=== PATIENT | male | born 1960 | race African-American/Black ===

== ENCOUNTER 2017-07-14 20:38 | Emergency (ER) | payer OTHER ==
[2017-07-14] MEDS ORDERED: Dexamethasone 4 mg/ml Vial ONE (21:41)
[2017-07-14] MEDS ORDERED: Ketorolac Tromethamine 30 MG/ML VIAL ONE (21:41)
[2017-07-14] MEDS ORDERED: HYDROcodone/Acetaminophen 10/325 mg Tablet ONE (22:07)
--- NOTE | 2017-07-14 22:57 | RAD ---
SEMI UPRIGHT PORTABLE CHEST ONE VIEW: History: 56-year-old male with left sided chest pain. Comparison: 01-28-17 FINDINGS: Anterior cervical fusion changes of the lower cervical spine. Heart size is normal. The lungs are cl ear. IMPRESSION: No acute intrathoracic disease. No evidence of pneumonia or other acute process. POS: [facility]
== END 2017-07-14 22:40 | disposition home or self-care (01) ==
LOC: ERS 20:38
DX: R07.89 Other chest pain (principal); I10 Essential (primary) hypertension; E11.9 Type 2 diabetes mellitus without complications; K21.9 Gastro-esophageal reflux disease without esophagitis; Z79.82 Long term (current) use of aspirin; Z79.899 Other long term (current) drug therapy
CPT/HCPCS: 71010; 96372; J1100; J1885

== ENCOUNTER 2017-07-22 21:16 | Emergency (ER) | payer OTHER ==
[2017-07-22 23:32] LABS: #Basophils 0.1 thou/uL (0.0-0.2); #Eosinphils 0.3 thou/uL (0.0-0.7); #Lymphocytes 2.3 thou/uL (1.20-3.40); #Monocytes 0.6 thou/uL (0.11-0.59); #Neutrophils 5.1 thou/uL (1.40-6.50); %Basophils 0.7 % (0.0-1.0); %Eosinophils 3.9 % (0.0-10.0); %Lymphocytes 27.2 % (21.0-51.0); Hematocrit 45.5 % (42.0-52.0); Mean Platelet Volume 9.1 fL (7.4-10.4); Red Blood Cell (RBC) Count 5.63 mill/uL (4.70-6.10); White Blood Cell (WBC) Count 8.3 thou/uL (4.8-10.8)
[2017-07-23] LABS: Troponin I Less than 0.010 ng/mL (< 0.028)
[2017-07-23 00:02] LABS: ALT (SGPT) 18 U/L (8-55); AST (SGOT) 14 U/L (5-34); Alkaline Phosphatase 103 U/L (40-150); Anion Gap 17 mmol/L (10-20); BUN (Urea Nitrogen) 16 mg/dL (8.4-25.7); Bilirubin, Total 0.4 mg/dL (0.2-1.2); CK (CPK) 98 U/L (30-200); Calc. Creatinine Clearance 0 mL/min (70-130); Calcium 9.9 mg/dL (7.8-10.44); Carbon Dioxide 24 mmol/L (22-29); Chloride 105 mmol/L (98-107); Estimated GFR-MDRD Greater than 90; Globulin 3.9 g/dL (2.4-3.5); Protein, Total 8.2 g/dL (6.0-8.3)
[2017-07-23] MEDS ORDERED: Nitroglycerin 0.4 MG TAB (25 Tab Bottle) ONE (00:28)
[2017-07-23] MEDS ORDERED: Ketorolac Tromethamine 30 MG/ML VIAL ONE (00:52)
[2017-07-23 03:32] LABS: Troponin I 0.012 ng/mL (< 0.028)
--- NOTE | 2017-07-23 08:57 | RAD ---
SINGLE VIEW OF THE CHEST: COMPARISON: 07/14/17. HISTORY: Chest pain for 2 weeks in the substernal region. FINDINGS: Single view of the chest shows a normal sized cardiomediastinal silhouette. There is no evidence of consolidation, mass, or pleural effusion. Hardware is seen in the cervical spine. IMPRESSION: No evidence of acute cardiopulmonary disease. POS: [facility]
== END 2017-07-23 04:25 | disposition home or self-care (01) ==
LOC: ERS 21:16
DX: M94.0 Chondrocostal junction syndrome [Tietze] (principal); I10 Essential (primary) hypertension; E11.9 Type 2 diabetes mellitus without complications; K21.9 Gastro-esophageal reflux disease without esophagitis; Z79.82 Long term (current) use of aspirin; Z79.899 Other long term (current) drug therapy
CPT/HCPCS: 36415; 71010; 80053; 82550; 82553; 84484; 85025; 93005; 96372; J1885

== ENCOUNTER 2017-09-01 17:32 | Emergency (ER) | payer OTHER ==
[2017-09-01 19:02] LABS: #Eosinphils 0.2 thou/uL (0.0-0.7); #Lymphocytes 1.8 thou/uL (1.20-3.40); #Monocytes 0.5 thou/uL (0.11-0.59); #Neutrophils 3.6 thou/uL (1.40-6.50); %Basophils 0.3 % (0.0-1.0); %Eosinophils 3.1 % (0.0-10.0); %Lymphocytes 29.6 % (21.0-51.0); %Monocytes 8.3 % (0.0-10.0); Hematocrit 42.3 % (42.0-52.0); Mean Platelet Volume 8.9 fL (7.4-10.4); Red Blood Cell (RBC) Count 5.17 mill/uL (4.70-6.10); White Blood Cell (WBC) Count 6.1 thou/uL (4.8-10.8)
--- NOTE | 2017-09-01 19:08 | RAD ---
PORTABLE CHEST: History: Chest pain. FINDINGS: The lungs are clear. Vascular markings are normal. Heart and mediastinum are unremarkable. IMPRESSION: Unremarkable portable chest. POS: [facility]
[2017-09-01 19:23] LABS: ALT (SGPT) 12 U/L (8-55); AST (SGOT) 10 U/L (5-34); Alkaline Phosphatase 95 U/L (40-150); Anion Gap 12 mmol/L (10-20); BUN (Urea Nitrogen) 13 mg/dL (8.4-25.7); Bilirubin, Total 0.5 mg/dL (0.2-1.2); Calc. Creatinine Clearance 0 mL/min (70-130); Calcium 9.4 mg/dL (7.8-10.44); Carbon Dioxide 26 mmol/L (22-29); Chloride 106 mmol/L (98-107); Estimated GFR-MDRD Greater than 90; Globulin 3.3 g/dL (2.4-3.5); Protein, Total 7.5 g/dL (6.0-8.3)
[2017-09-01 19:31] LABS: Troponin I Less than 0.010 ng/mL (< 0.028)
== END 2017-09-01 20:44 | disposition home or self-care (01) ==
LOC: ERS 17:32
DX: R07.89 Other chest pain (principal); E11.9 Type 2 diabetes mellitus without complications; G43.909 Migraine, unspecified, not intractable, without status migrainosus; I10 Essential (primary) hypertension; K21.9 Gastro-esophageal reflux disease without esophagitis; Z79.82 Long term (current) use of aspirin; Z79.899 Other long term (current) drug therapy; M41.9 Scoliosis, unspecified
CPT/HCPCS: 36415; 71010; 80053; 82553; 84484; 85025; 93005

== ENCOUNTER 2017-09-09 10:41 | Emergency (ER) | payer MEDICARE, MEDICAID ==
[2017-09-09 11:14] LABS: #Eosinphils 0.2 thou/uL (0.0-0.7); #Lymphocytes 1.6 thou/uL (1.20-3.40); #Monocytes 0.5 thou/uL (0.11-0.59); #Neutrophils 3.6 thou/uL (1.40-6.50); %Basophils 0.7 % (0.0-1.0); %Eosinophils 4.1 % (0.0-10.0); %Lymphocytes 27.2 % (21.0-51.0); %Monocytes 7.6 % (0.0-10.0); Hematocrit 41.8 % (42.0-52.0); Mean Platelet Volume 8.6 fL (7.4-10.4); Red Blood Cell (RBC) Count 5.12 mill/uL (4.70-6.10); White Blood Cell (WBC) Count 5.9 thou/uL (4.8-10.8)
[2017-09-09] MEDS ORDERED: Ketorolac Tromethamine 30 MG/ML VIAL ONE (11:29)
[2017-09-09 11:40] LABS: ALT (SGPT) 15 U/L (8-55); AST (SGOT) 12 U/L (5-34); Alkaline Phosphatase 81 U/L (40-150); Anion Gap 13 mmol/L (10-20); BUN (Urea Nitrogen) 22 mg/dL (8.4-25.7); Bilirubin, Total 0.4 mg/dL (0.2-1.2); CK (CPK) 138 U/L (30-200); Calc. Creatinine Clearance 0 mL/min (70-130); Calcium 9.2 mg/dL (7.8-10.44); Carbon Dioxide 21 mmol/L (22-29); Chloride 108 mmol/L (98-107); Estimated GFR-MDRD Greater than 90; Globulin 3.2 g/dL (2.4-3.5); Protein, Total 7.3 g/dL (6.0-8.3)
[2017-09-09 11:43] LABS: Troponin I Less than 0.010 ng/mL (< 0.028)
== END 2017-09-09 12:45 | disposition home or self-care (01) ==
LOC: ERS 10:41
DX: M94.0 Chondrocostal junction syndrome [Tietze] (principal); I10 Essential (primary) hypertension; K21.9 Gastro-esophageal reflux disease without esophagitis; G43.909 Migraine, unspecified, not intractable, without status migrainosus; E11.9 Type 2 diabetes mellitus without complications; Z79.82 Long term (current) use of aspirin; Z79.899 Other long term (current) drug therapy
CPT/HCPCS: 36415; 80053; 82553; 84484; 85025; 93005; 96374; J1885

== ENCOUNTER 2018-03-09 21:15 | Observation (INO) | payer MEDICARE, MEDICAID ==
[2018-03-09] MEDS ORDERED: Acetaminophen 500 MG TAB ONE (22:56)
[2018-03-09 23:17] LABS: #Eosinphils 0.2 thou/uL (0.0-0.7); #Monocytes 0.6 thou/uL (0.11-0.59); #Neutrophils 4.2 thou/uL (1.40-6.50); %Basophils 0.3 % (0.0-1.0); %Eosinophils 3.3 % (0.0-10.0); %Lymphocytes 28.4 % (21.0-51.0); %Monocytes 8.1 % (0.0-10.0); %Neutrophils 59.9 % (42.0-75.0); Hemoglobin 13.9 g/dL (14.0-18.0); Mean Corpuscular Hemoglobin 24.9 pg (27.0-31.0); Mean Corpuscular Volume 80.4 fl (80.0-94.0); Mean Platelet Volume 9.1 fL (7.4-10.4); Platelet Count 187 thou/uL (130-400); RBC Distribution Width 14.3 % (11.5-14.5); Red Blood Cell (RBC) Count 5.59 mill/uL (4.70-6.10); White Blood Cell (WBC) Count 6.9 thou/uL (4.8-10.8)
--- NOTE | 2018-03-09 23:25 | RAD ---
FRONTAL VIEW CHEST: CLINICAL HISTORY: Chest pain. COMPARISON: 09/01/2017 FINDINGS: There is no lobar consolidation, effusion, or pneumothorax. The cardiac silhouette is accentuated by the portable technique. There are extrinsic artifacts limiting visualization. Otherwise, no signif icant interval change. IMPRESSION: No focal consolidation. POS: [facility]
[2018-03-09 23:30] LABS: ALT (SGPT) 19 U/L (8-55); AST (SGOT) 13 U/L (5-34); Albumin 4.4 g/dL (3.5-5.0); Alkaline Phosphatase 89 U/L (40-150); Anion Gap 11 mmol/L (10-20); BUN (Urea Nitrogen) 12 mg/dL (8.4-25.7); Bilirubin, Total 0.5 mg/dL (0.2-1.2); Calc. Creatinine Clearance 0 mL/min (70-130); Calcium 9.4 mg/dL (7.8-10.44); Carbon Dioxide 24 mmol/L (22-29); Chloride 108 mmol/L (98-107); Estimated GFR-MDRD 88; Globulin 3.3 g/dL (2.4-3.5); Glucose 118 mg/dL (70-105); Potassium 4.2 mmol/L (3.5-5.1); Protein, Total 7.7 g/dL (6.0-8.3); Sodium 139 mmol/L (136-145)
[2018-03-09 23:33] LABS: CKMB 1.3 ng/mL (0-6.6); Troponin I Less than 0.010 ng/mL (< 0.028)
[2018-03-10] MEDS ORDERED: Nitroglycerin 0.4 MG TAB (25 Tab Bottle) ONE (01:29)
[2018-03-10 02:28] LABS: Troponin I Less than 0.010 ng/mL (< 0.028)
[2018-03-10] MEDS ORDERED: Ketorolac Tromethamine 30 MG/ML VIAL ONE (02:47)
[2018-03-10] MEDS ORDERED: Ondansetron HCl/PF 4 MG/2 ML Vial IVP PRN (04:14)
[2018-03-10] MEDS ORDERED: Ondansetron ODT 4 MG TAB SL PRN (04:14)
[2018-03-10] MEDS ORDERED: Acetaminophen 325 MG TAB PO PRN (04:14)
[2018-03-10] MEDS: Sodium Chloride 0.9% 1,000 ML IV SCH ×2 (04:38→13:00)
[2018-03-10 04:48] VITALS: BMI 26.0
[2018-03-10] MEDS: Docusate 100 MG CAP PO SCH (08:00)
[2018-03-10] MEDS ORDERED: Nitroglycerin 0.4 MG TAB (25 Tab Bottle) PO PRN (08:47)
[2018-03-10] MEDS ORDERED: Ibuprofen 800 MG TAB PO SCH (09:00)
[2018-03-10] MEDS ORDERED: Non-Formulary Item 1 EACH (Pregabalin [Lyrica] 300 MG) PO SCH (09:00)
[2018-03-10] MEDS ORDERED: Docusate 100 MG CAP PO SCH (09:00)
[2018-03-10] MEDS ORDERED: Aspirin 325 MG TAB PO SCH (09:00)
[2018-03-10] MEDS: Heparin 5,000 UNITS/ML VIAL SC SCH ×3 (09:05→21:56)
[2018-03-10] MEDS: Pregabalin 75 MG CAP PO SCH ×2 (09:05→21:55)
[2018-03-10] MEDS ORDERED: Regadenoson 0.4 MG/5 ML SYRINGE ONE (10:48)
[2018-03-10] MEDS ORDERED: ALPRAZolam 0.25 MG TAB PO SCH (11:15)
--- NOTE | 2018-03-10 12:12 | HP ---
PRIMARY CARE PHYSICIAN: Dr. Ricardo PRESENTING COMPLAINT: Chest pain. HISTORY OF PRESENT ILLNESS: Mr. Yousif Nunn is a 57-year-old male with a past medical history of cerebral palsy, scoliosis, sciatica, hypertension and hyperlipidemia who presented to the emergency room with complaints of chest pain. He reports that the chest pain is right-sided, radiating to the left side of his chest, 8/10 and sharp, aggravated by moving his arms and then relieved by lying still. The pain lasted about 15-20 minutes and was associated with one episode of diaphoresis. There is no shortness of breath, palpitations, PND, orthopnea, lower extremity edema. He has no abdominal or urinary symptoms. He reported he has this intermittent chest pain for a few years now and had been evaluated in the past with no etiology found. Last stress test was about 2 years ago. He has never had a cardiac catheterization. PAST MEDICAL HISTORY: As stated in the HPI. PAST SURGICAL HISTORY: Has a history of multiple back and leg surgeries. FAMILY HISTORY: Reviewed and noncontributory. SOCIAL HISTORY: He does not smoke cigarettes, drink alcohol or use illicit drugs. ALLERGIES: No known drug allergies. CODE STATUS: FULL. REVIEW OF SYSTEMS: Full. REVIEW OF SYSTEMS: All systems reviewed and negative, except as stated in HPI. HOME MEDICATIONS: Aspirin 81 mg daily, docusate 100 mg daily, lisinopril 10 mg q.a.m., metoprolol succinate 50 mg q.a.m., pregabalin 300 mg b.i.d. PHYSICAL EXAMINATION: VITAL SIGNS: Temperature 96.4 degrees Fahrenheit, pulse rate 78, BP 128/79, respiratory rate 20, oxygen saturation 99% on room air. GENERAL: Not in acute distress. He is lying comfortably in bed, currently chest pain free. HEENT: Normocephalic, atraumatic. Not pale, anicteric. Moist oral mucosa. PERRLA, EOMI. RESPIRATORY: Vesicular breath sounds bilaterally. No wheezes, rales or rhonchi. Positive reproducible chest pain on palpation. CARDIOVASCULAR: S1, S2 only. No murmurs, rubs or gallops. Regular rate and rhythm. ABDOMEN: Soft, nontender, nondistended. Bowel sounds normoactive. MUSCULOSKELETAL: No edema. NEUROLOGIC: Alert and well oriented to time, place and person. No focal deficits. PSYCHIATRIC: Normal mood and affect. SKIN: Warm, dry, well perfused. No rashes or lesions. LABORATORY DATA: CBC was largely unremarkable as well as CMP. Troponin was trended and was negative. Chest x-ray showed no signs of acute pathology. EKG showed no signs of acute ischemia. ASSESSMENT AND PLAN: 1. Chest pain: This is likely musculoskeletal chest pain. He has reproducible chest pain and his cardiac enzymes have been negative. He also has no EKG changes. He has been admitted to rule out ACS. We will obtain cardiac stress test, placed on nitroglycerin p.r.n. for chest pain. We will also give a trial of NSAIDs because he might be experiencing costochondritis. 2. Hypertension: Blood pressure is relatively well controlled. We will resume his home medications. 3. Hyperlipidemia. 4. History of cerebral palsy. 5. Deep venous thrombosis prophylaxis with subcutaneous heparin. CODE STATUS: FULL CODE. [facility]
[2018-03-10] MEDS: Lisinopril 10 MG TAB PO SCH (17:12)
--- NOTE | 2018-03-10 18:59 | NM ---
NUCLEAR MEDICINE CARDIAC PERFUSION EXAMINATION WITH EJECTION FRACTION: 03/10/18 COMPARISON: 09/22/15. HISTORY: 57-year-old male with chest pain and hypertension. TECHNIQUE: A single day nuclear medicine cardiac perfusion examination was performed. Rest images were obtained using 9 millicuries of technetium 99m Sestamibi. Stress images were obtained using 27.1 millicuries o f technetium 99m Sestamibi and Lexiscan. FINDINGS: Tomographic images show no fixed or reversible perfusion defects. Gated images show normal wall motio n with an ejection fraction of 67%. EDV - 65 mL. LHR - 0.5. TID - 0.9. IMPRESSION: No evidence of ischemia. POS: [facility]
[2018-03-11 05:41] LABS: #Eosinphils 0.2 thou/uL (0.0-0.7); #Lymphocytes 1.2 thou/uL (1.20-3.40); #Monocytes 0.4 thou/uL (0.11-0.59); #Neutrophils 3.6 thou/uL (1.40-6.50); %Eosinophils 3.6 % (0.0-10.0); %Lymphocytes 22.8 % (21.0-51.0); %Monocytes 8.1 % (0.0-10.0); %Neutrophils 65.5 % (42.0-75.0); Hemoglobin 12.5 g/dL (14.0-18.0); Mean Corpuscular HGB CONC 31.8 g/dL (32.0-36.0); Mean Corpuscular Hemoglobin 25.9 pg (27.0-31.0); Mean Corpuscular Volume 81.4 fl (80.0-94.0); Mean Platelet Volume 9.6 fL (7.4-10.4); Platelet Count 179 thou/uL (130-400); RBC Distribution Width 14.4 % (11.5-14.5); Red Blood Cell (RBC) Count 4.81 mill/uL (4.70-6.10); White Blood Cell (WBC) Count 5.4 thou/uL (4.8-10.8)
[2018-03-11 05:51] VITALS: TEMP 97.5
[2018-03-11 05:55] LABS: Anion Gap 9 mmol/L (10-20); BUN (Urea Nitrogen) 11 mg/dL (8.4-25.7); Calc. Creatinine Clearance 95 mL/min (70-130); Calcium 8.9 mg/dL (7.8-10.44); Carbon Dioxide 22 mmol/L (22-29); Cardiac Risk 4.6 (Less than 4.5); Chloride 112 mmol/L (98-107); Cholesterol 124 mg/dl (< 200 Desired); Estimated GFR-MDRD Greater than 90; Glucose 152 mg/dL (70-105); HDL Cholesterol 27 mg/dL (>60 Neg Risk); LDL Cholesterol, Calculated 65 mg/dL; Potassium 3.9 mmol/L (3.5-5.1); Sodium 139 mmol/L (136-145); Triglycerides 162 mg/dL (Less than 150)
[2018-03-11 08:33] VITALS: BP 138/65
[2018-03-11] MEDS: Pregabalin 75 MG CAP PO SCH (09:02)
[2018-03-11] MEDS: Docusate 100 MG CAP PO SCH (09:02)
[2018-03-11] MEDS: Lisinopril 10 MG TAB PO SCH (09:02)
[2018-03-11] MEDS: Heparin 5,000 UNITS/ML VIAL SC SCH (09:05)
--- NOTE | 2018-03-11 12:29 | DIS ---
DATE OF ADMISSION: 03/10/2018 DATE OF DISCHARGE: 03/11/2018 DISCHARGE DIAGNOSES: Noncardiac chest pain. HISTORY OF PRESENT ILLNESS/HOSPITAL COURSE: Mr. Yousif Nunn is a 57-year-old man with a past medical history of cerebral palsy, scoliosis, sciatica, hypertension, hyperlipidemia who is whee lchair dependent, who presented to the emergency room with complaints of chest pain, which was right- sided, radiating to the left side of the chest 6-8/10, sharp, aggravated by movement and relieved by lying still. The pain lasts about 15-20 minutes, was associated with 1 episode of diaphoresis. Ther e is no shortness of breath, palpitations, PND, orthopnea, or lower extremity edema. He has no abdom inal or urinary symptoms. He reports he has had this intermittent chest pain for a few years now and has been evaluated thoroughly in the past with no etiology found. He reports he had a stress test d one about 2 years ago which was normal. He has never had a cardiac catheterization. His labs are la rgely unremarkable, as well as imaging. He underwent a cardiac stress test while in the hospital whi ch was normal and showed no signs of ischemia. He was then discharged home with plans to follow up w ith his primary care physician. DISCHARGE MEDICATIONS: Metoprolol succinate 25 mg daily, docusate 1 tab daily, pregabalin 300 mg twi ce daily, lisinopril 10 mg daily, aspirin 81 mg daily. PHYSICAL EXAMINATION: He was examined on the day of discharge. VITAL SIGNS: Temperature 97.5 degree Fahrenheit, pulse rate 62, blood pressure 138/75, respiratory r ate 16, oxygen saturation 96% on room air. GENERAL: Not in acute distress. He is lying comfortably in bed and chest pain free. HEENT: Normocephalic, atraumatic. PERRLA, EOMI. Moist mucous membrane. RESPIRATORY: Vesicular breath sounds bilaterally. No wheezes, rales or rhonchi. CARDIOVASCULAR: S1, S2, only with regular rate and rhythm. No murmurs, rubs or gallops. ABDOMEN: Soft, nontender, nondistended. Bowel sounds normoactive. EXTREMITIES: No edema. PSYCHIATRIC: Normal mood and affect. NEUROLOGIC: Alert and well oriented. No focal deficits. SKIN: Warm, dry, well-perfused. No rashes or lesions. NECK: Supple, full range of movement. LABORATORY DATA: WBC 5.4, hemoglobin 12.5, platelet count 179. Sodium 139, potassium 3.9, chloride 112, carbon dioxide 22, BUN 11, creatinine 0.82, glucose 152, calcium 8.8. IMAGING: Chest x-ray, no acute pulmonary abnormality. PROCEDURES: Nuclear stress test. Normal cardiac. No signs of acute ischemia or reversible defects. CONSULTATIONS: None. CONDITION AT TIME OF DISCHARGE: Stable and improved. DISCHARGE DIET: Heart healthy. CARE GOAL: Follow up with his primary care physician within 10 days of discharge. Patient instructe d to return to the emergency room if he has recurrence of his chest pain, shortness of breath, diapho resis or loss of consciousness. ACTIVITY: Resume as tolerated. Discharge time 65 minutes including chart review and documentation.
== END 2018-03-11 13:57 | disposition home or self-care (01) ==
LOC: ERS 21:15 → 2NO 03-10 03:11
PROVIDERS: ADMIT Internal Medicine; ATTEND Internal Medicine
DX: R07.89 Other chest pain (principal); I10 Essential (primary) hypertension; E78.5 Hyperlipidemia, unspecified; Z79.82 Long term (current) use of aspirin; Z79.899 Other long term (current) drug therapy; Z86.69 Personal history of other diseases of the nervous system and sense organs
CPT/HCPCS: 71045; 78452; 80048; 80053; 80061; 82553; 83880; 84484 ×2; 85025 ×2; 93005; 93017; 94760; 96361; 96374; 99285; A9500; G0378; 36415; J1644; J1885; J2785

== ENCOUNTER 2018-03-19 20:49 | Emergency (ER) | payer MEDICARE, MEDICAID ==
[2018-03-19 21:15] LABS: #Eosinphils 0.3 thou/uL (0.0-0.7); #Lymphocytes 1.9 thou/uL (1.20-3.40); #Monocytes 0.5 thou/uL (0.11-0.59); #Neutrophils 3.9 thou/uL (1.40-6.50); %Basophils 0.6 % (0.0-1.0); %Eosinophils 5.2 % (0.0-10.0); %Lymphocytes 28.7 % (21.0-51.0); %Monocytes 7.8 % (0.0-10.0); %Neutrophils 57.8 % (42.0-75.0); Hemoglobin 14.2 g/dL (14.0-18.0); Mean Corpuscular HGB CONC 31.7 g/dL (32.0-36.0); Mean Corpuscular Hemoglobin 25.9 pg (27.0-31.0); Mean Corpuscular Volume 81.8 fl (80.0-94.0); Mean Platelet Volume 10.1 fL (7.4-10.4); Platelet Count 199 thou/uL (130-400); RBC Distribution Width 14.8 % (11.5-14.5); Red Blood Cell (RBC) Count 5.47 mill/uL (4.70-6.10); White Blood Cell (WBC) Count 6.7 thou/uL (4.8-10.8)
--- NOTE | 2018-03-19 21:32 | RAD ---
CHEST ONE VIEW: 03/19/18 HISTORY: Chest pain. COMPARISON: 03/09/18. FINDINGS: Stable cardiac silhouette. Lungs and pleural spaces are clear. No pneumothorax or osseous abnormality . Cervical fusion hardware is noted. IMPRESSION: No acute cardiopulmonary process. POS: [facility]
[2018-03-19 21:39] LABS: CKMB 1.5 ng/mL (0-6.6); Troponin I Less than 0.010 ng/mL (< 0.028)
[2018-03-19] MEDS ORDERED: Ketorolac Tromethamine 30 MG/ML VIAL ONE (21:42)
[2018-03-19 22:18] LABS: Albumin 4.1 g/dL (3.5-5.0)
[2018-03-19 22:20] LABS: Chloride 106 mmol/L (98-107); Potassium 3.8 mmol/L (3.5-5.1); Sodium 140 mmol/L (136-145)
[2018-03-19 22:21] LABS: Calcium 9.3 mg/dL (7.8-10.44); Globulin 3.6 g/dL (2.4-3.5); Glucose 148 mg/dL (70-105); Protein, Total 7.7 g/dL (6.0-8.3)
[2018-03-19 22:22] LABS: Anion Gap 16 mmol/L (10-20); Carbon Dioxide 22 mmol/L (22-29)
[2018-03-19 22:23] LABS: Bilirubin, Total 0.3 mg/dL (0.2-1.2)
[2018-03-19 22:24] LABS: Alkaline Phosphatase 95 U/L (40-150)
[2018-03-19 22:25] LABS: BUN (Urea Nitrogen) 11 mg/dL (8.4-25.7); Calc. Creatinine Clearance 0 mL/min (70-130); Estimated GFR-MDRD Greater than 90
[2018-03-19 22:26] LABS: AST (SGOT) 15 U/L (5-34)
[2018-03-19 22:27] LABS: ALT (SGPT) 27 U/L (8-55); CK (CPK) 125 U/L (30-200)
== END 2018-03-19 23:46 | disposition home or self-care (01) ==
LOC: ERS 20:49
DX: R07.9 Chest pain, unspecified (principal); G43.909 Migraine, unspecified, not intractable, without status migrainosus; I10 Essential (primary) hypertension; E11.9 Type 2 diabetes mellitus without complications; Z79.899 Other long term (current) drug therapy; Z79.82 Long term (current) use of aspirin; Z79.84 Long term (current) use of oral hypoglycemic drugs
CPT/HCPCS: 36415; 71045; 80053; 82550; 82553; 84484; 85025; 93005; 94760; 96374; J1885

== ENCOUNTER 2018-03-23 21:35 | Emergency (ER) | payer MEDICARE, MEDICAID ==
[2018-03-23] MEDS ORDERED: Ketorolac Tromethamine 30 MG/ML VIAL ONE (23:05)
[2018-03-23] MEDS ORDERED: Cyclobenzaprine 10 MG TAB ONE (23:05)
--- NOTE | 2018-03-23 23:32 | RAD ---
LUMBAR SPINE THREE VIEWS: INDICATIONS: Low back pain. COMPARISON: Lumbar films from 08/29/2016. FINDINGS: Postop changes are again noted. Pedicle screws transfix L4 and L5. There is a cage type implant at the L5-S1 disk. There is an interbody implant at L3-L4 and at L4-L5. These implants are unchanged i n position from the prior exam. There is a slight retrolisthesis at L3-L4, which is also similar to the prior exam. Posterior bony fusion changes. Anterior osteophytes are prominent at L3-L4. Postoperative and degenerative changes of the lumbar spine again noted, not significantly changed fro m the prior exam of 08/29/2016. POS: [facility]
== END 2018-03-24 01:50 | disposition home or self-care (01) ==
LOC: ERS 21:35
DX: S39.012A Strain of muscle, fascia and tendon of lower back, initial encounter (principal); I10 Essential (primary) hypertension; G43.909 Migraine, unspecified, not intractable, without status migrainosus; E11.9 Type 2 diabetes mellitus without complications; Z79.899 Other long term (current) drug therapy; Z79.82 Long term (current) use of aspirin; Z79.84 Long term (current) use of oral hypoglycemic drugs; Y93.E1 Activity, personal bathing and showering
CPT/HCPCS: 72100; 96372; J1885

== ENCOUNTER 2018-04-07 17:09 | Emergency (ER) | payer MEDICARE, MEDICAID ==
[2018-04-07 17:49] LABS: #Basophils 0.1 thou/uL (0.0-0.2); #Eosinphils 0.2 thou/uL (0.0-0.7); #Lymphocytes 1.9 thou/uL (1.20-3.40); #Monocytes 0.5 thou/uL (0.11-0.59); #Neutrophils 4.1 thou/uL (1.40-6.50); %Basophils 0.7 % (0.0-1.0); %Eosinophils 3.2 % (0.0-10.0); %Lymphocytes 27.8 % (21.0-51.0); %Monocytes 7.4 % (0.0-10.0); %Neutrophils 60.9 % (42.0-75.0); Hemoglobin 13.6 g/dL (14.0-18.0); Mean Corpuscular Hemoglobin 26.5 pg (27.0-31.0); Mean Corpuscular Volume 80.3 fL (78.0-98.0); Platelet Count 189 thou/uL (130-400); RBC Distribution Width 13.9 % (11.5-14.5); Red Blood Cell (RBC) Count 5.13 mill/uL (4.70-6.10); White Blood Cell (WBC) Count 6.7 thou/uL (4.8-10.8)
[2018-04-07 18:14] LABS: CKMB 1.8 ng/mL (0-6.6); Troponin I Less than 0.010 ng/mL (< 0.028)
--- NOTE | 2018-04-07 18:20 | RAD ---
RADIOGRAPH CHEST 1 VIEW: 04/07/18 HISTORY: 57-year-old male with chest pain. FINDINGS: There are no air space densities, pulmonary edema, pneumothorax, or cardiomegaly. The lateral costop hrenic angles are sharp. IMPRESSION: No acute cardiopulmonary findings. lino [] POS: [facility]
[2018-04-07 18:28] LABS: ALT (SGPT) 15 U/L (8-55); AST (SGOT) 12 U/L (5-34); Albumin 4.3 g/dL (3.5-5.0); Alkaline Phosphatase 94 U/L (40-150); Anion Gap 13 mmol/L (10-20); BUN (Urea Nitrogen) 13 mg/dL (8.4-25.7); Bilirubin, Total 0.3 mg/dL (0.2-1.2); CK (CPK) 124 U/L (30-200); Calc. Creatinine Clearance 0 mL/min (70-130); Calcium 9.4 mg/dL (7.8-10.44); Carbon Dioxide 21 mmol/L (22-29); Chloride 110 mmol/L (98-107); Estimated GFR-MDRD Greater than 90; Globulin 3.4 g/dL (2.4-3.5); Glucose 96 mg/dL (70-105); Lipase 27 U/L (8-78); Potassium 3.8 mmol/L (3.5-5.1); Protein, Total 7.7 g/dL (6.0-8.3); Sodium 140 mmol/L (136-145)
--- NOTE | 2018-04-11 12:58 | EKG ---
Test Reason : Blood Pressure : / mmHG Vent. Rate : 077 BPM Atrial Rate : 077 BPM P-R Int : 172 ms QRS Dur : 068 ms QT Int : 354 ms P-R-T Axes : 043 026 022 degrees QTc Int : 400 ms Normal sinus rhythm Nonspecific T wave abnormality Abnormal ECG Confirmed by JACE MEREDITH, JIM ([id number]), health editor GAGAN BASILIO ([id number]) on 04/11/2018 12:57:41 PM Referred By: Confirmed By:JIM MCCORMICK MD
== END 2018-04-07 19:12 | disposition home or self-care (01) ==
LOC: ERS 17:09
DX: M25.511 Pain in right shoulder (principal); E11.9 Type 2 diabetes mellitus without complications; G80.9 Cerebral palsy, unspecified; I10 Essential (primary) hypertension; M41.9 Scoliosis, unspecified; G43.909 Migraine, unspecified, not intractable, without status migrainosus; Z79.82 Long term (current) use of aspirin; Z79.899 Other long term (current) drug therapy; Z79.84 Long term (current) use of oral hypoglycemic drugs
CPT/HCPCS: 36415; 71045; 80053; 82550; 82553; 83690; 84484; 85025; 93005

== ENCOUNTER 2018-08-09 11:37 | Emergency (ER) | payer MEDICARE, OTHER ==
[2018-08-09] MEDS ORDERED: Ketorolac Tromethamine 60 MG/2 ML VIAL ONE (11:58)
[2018-08-09 12:10] LABS: Bilirubin Negative (Negative); Blood, Urine Negative (Negative); Clarity CLEAR (Clear); Glucose, Urine (Dipstick) >=1000 mg/dL (Negative); Leukocyte Negative (Negative); Nitrite Negative (Negative); Protein, Urine (Dipstick) Negative (Neg-Trace); Specific Gravity, Urine 1.023 (1.002-1.036); Urobilinogen 0.2 mg/dL (0.2-1.0); pH, Urine 5.5 (5.0-9.0)
--- NOTE | 2018-08-09 12:13 | RAD ---
LUMBAR SPINE 3 VIEWS: Date: 08/09/18 PROVIDED CLINICAL HISTORY: Low back pain. FINDINGS: Comparison with 03/23/18. Five non-rib bearing lumbar-type vertebral bodies are redemonstrated. Postoperative changes involving the lower lumbar spine are redemonstrated. There is displacement of the intervertebral disc device d orsal markers involving the L3-4 disc device posteriorly, projecting over the spinal canal at this le rahel. Vertebral body heights appear preserved. There is prominent disc space narrowing at L3-4 with en d plate degenerative change. Visualized pedicles appear intact. IMPRESSION: Extensive postoperative change involving the lower lumbar spine with interval displacement of interve rtebral disc device posteriorly into the spinal canal at L3-4. POS: [facility]
--- NOTE | 2018-08-09 15:46 | CT ---
CT LUMBAR SPINE: Date: 08/09/18 Multiple axial tomograms obtained through the lumbar spine with multiplanar reconstruction. INDICATION: Back pain. Evaluate for displacement of IVD device. Comparison made to 12/08/[address] scans. FINDINGS: Postoperative changes are again noted. There are pedicle screws at L4 and L5. An interbody implant at L5-S1, similar to the prior study. Mild retrolisthesis of L3 on L4 is also similar to the prior exam . Posterior fusion changes and posterior laminectomy changes at L3-4, L4-5, and L5-S1. At L1-2, mild disc bulge without significant central canal stenosis. At L2-3, diffuse disc bulge. Calcification along the posterior disc margin. Facet and ligamentous hyp ertrophy. Mild central canal stenosis. At L3-4, posterolisthesis measured at approximately 4-5 mm. Severe posterior hypertrophic change. The re is an interbody disc implant in place which is to the left of midline, similar to the prior study. Posterior osteophytes at L3-4 level with disc bulge. These changes compress the thecal sac resulting in severe central canal stenosis. Pedicle screws at L4. At L4-5, partial fusion with interbody implant. There is curvilinear opacification within the thecal sac laterally on the left. This has the appearan ce of some residual contrast within the thecal sac. This could potentially represent dystrophic calci fication. It was not present on prior CT of 12/15/14. Posterior laminectomy changes. No significant c entral canal stenosis. At L5-S1, interbody implant and partial fusion. Facet hypertrophy. Mild central canal stenosis. Pedic le screws are seen at L5. IMPRESSION: Postoperative and degenerative changes of the lumbar spine again noted. Findings are similar to the p rior study of 12/08/13 and 12/15/14. POS: [facility]
== END 2018-08-09 16:45 | disposition home or self-care (01) ==
LOC: ERS 11:37
DX: M54.5 Low back pain (principal); R10.9 Unspecified abdominal pain; E11.9 Type 2 diabetes mellitus without complications; I10 Essential (primary) hypertension; G43.909 Migraine, unspecified, not intractable, without status migrainosus
CPT/HCPCS: 72100; 72131; 81003; 87086; 96372; J1885

== ENCOUNTER 2019-05-30 05:20 | Inpatient (IN) | payer MEDICARE, MEDICAID ==
[2019-05-30 06:04] LABS: #Eosinphils 0.2 thou/uL (0.0-0.7); #Lymphocytes 1.3 thou/uL (1.20-3.40); #Monocytes 0.6 thou/uL (0.11-0.59); %Basophils 0.3 % (0.0-1.0); %Eosinophils 2.3 % (0.0-10.0); %Lymphocytes 12.7 % (21.0-51.0); %Monocytes 6.1 % (0.0-10.0); %Neutrophils 78.5 % (42.0-75.0); Hemoglobin 14.3 g/dL (14.0-18.0); Mean Corpuscular HGB CONC 30.9 g/dL (32.0-36.0); Mean Corpuscular Hemoglobin 24.7 pg (27.0-31.0); Mean Corpuscular Volume 79.9 fL (78.0-98.0); Mean Platelet Volume 9.7 fL (7.4-10.4); Platelet Count 203 thou/uL (130-400); RBC Distribution Width 14.4 % (11.5-14.5); Red Blood Cell (RBC) Count 5.81 mill/uL (4.70-6.10); White Blood Cell (WBC) Count 10.2 thou/uL (4.8-10.8)
[2019-05-30] MEDS ORDERED: Nitroglycerin 0.4 MG TAB 1 EACH ONE (06:08)
[2019-05-30 06:24] LABS: ALT (SGPT) 8 U/L (8-55); AST (SGOT) 11 U/L (5-34); Albumin 4.3 g/dL (3.5-5.0); Alkaline Phosphatase 86 U/L (40-150); Anion Gap 15 mmol/L (10-20); BUN (Urea Nitrogen) 16 mg/dL (8.4-25.7); Bilirubin, Total 0.3 mg/dL (0.2-1.2); CK (CPK) 75 U/L (30-200); Calc. Creatinine Clearance 0 mL/min (70-130); Carbon Dioxide 21 mmol/L (22-29); Chloride 108 mmol/L (98-107); Estimated GFR-MDRD Greater than 90; Globulin 3.2 g/dL (2.4-3.5); Glucose 129 mg/dL (70-105); Lipase 21 U/L (8-78); Potassium 4.3 mmol/L (3.5-5.1); Protein, Total 7.5 g/dL (6.0-8.3); Sodium 140 mmol/L (136-145)
[2019-05-30] MEDS ORDERED: Enoxaparin Sodium 80 MG/0.8 ML SYRINGE ONE (06:39)
--- NOTE | 2019-05-30 06:50 | CT ---
CTA THORAX WITH IV CONTRAST AND PE PROTOCOL AND 3D REFORMATTED IMAGING: INDICATIONS: History of sudden onset chest pain and dyspnea. FINDINGS: There is a nonocclusive filling defect seen within the distal left lower lobar pulmonary artery, exte nding into the superior segmental pulmonary artery of the left lower lobe. No additional focal filli ng defect is evident. There is no overt evidence to suggest the presence of right heart strain. No confluent air space opacity or pleural effusion is noted. A few ground glass tree-in-bud nodular opa cities are present within the right middle lobe. No enlarged lymph nodes are evident. The visualize d upper abdomen reveals no acute abnormality. There is scattered degenerative change. IMPRESSION: Nonocclusive distal left lower lobar pulmonary embolus with extension into the superior segmental pul monary artery of the left lower lobe. Findings called to Dr. Cardoso at 6:13 a.m. on 05/30/2019. CODE CR POS: [facility]
--- NOTE | 2019-05-30 08:55 | RAD ---
PORTABLE CHEST ONE VIEW: 05/30/2019 6:08 a.m. HISTORY: Chest pain. COMPARISON: 04/07/2018 FINDINGS: The heart size is normal. The lungs are well expanded without focal areas of consolidation, pneumoth oraces, or pleural effusions. There are postop changes in the cervical spine. IMPRESSION: No acute process. POS: [facility]
[2019-05-30 09:09] VITALS: BMI 25.9
[2019-05-30 09:40] LABS: Troponin I Less than 0.010 ng/mL (< 0.028)
[2019-05-30] MEDS ORDERED: ISOVUE-370 76%-LOCM 1 ML ONE (10:22)
[2019-05-30] MEDS ORDERED: Cyclobenzaprine 10 MG TAB PO PRN (11:32)
[2019-05-30] MEDS ORDERED: Fluticasone Propionate Nasal Spray 16 gm Bottle NASAL PRN (11:32)
[2019-05-30] MEDS ORDERED: Loratadine 10 MG TAB PO PRN (11:32)
[2019-05-30] MEDS ORDERED: Ondansetron ODT 4 MG TAB PO PRN (11:34)
[2019-05-30] MEDS ORDERED: Senokot S 8.6-50 MG TAB PO PRN (11:34)
[2019-05-30] MEDS ORDERED: Ondansetron PF 4 MG/2 ML Vial IVP PRN (11:34)
[2019-05-30] MEDS ORDERED: Bisacodyl 5 MG TAB PO PRN (11:34)
[2019-05-30] MEDS ORDERED: Dextrose 50% Abboject 50 ML SYRINGE SLOW IVP PRN (11:37)
[2019-05-30] MEDS ORDERED: HumaLOG 300 UNITS/3 ML VIAL SC PRN (11:37)
[2019-05-30] MEDS ORDERED: Dextrose 5% in Water 1,000 ML IV PRN (11:37)
[2019-05-30] MEDS ORDERED: Multivit, Therapeutic 1 TAB PO SCH (12:00)
[2019-05-30] MEDS ORDERED: Pregabalin 75 MG CAP PO SCH (12:00)
[2019-05-30] MEDS ORDERED: Famotidine 20 MG TAB PO SCH (12:00)
[2019-05-30] MEDS ORDERED: Lidocaine 5% Patch TD SCH (12:00)
[2019-05-30] MEDS ORDERED: Lisinopril 20 MG TAB PO SCH (12:00)
[2019-05-30 12:18] LABS: Troponin I Less than 0.010 ng/mL (< 0.028)
[2019-05-30] MEDS: HYDROcodone/Acetaminophen 5/325 mg Tablet PO PRN (12:28)
--- NOTE | 2019-05-30 18:35 | HP ---
CHIEF COMPLAINT: Shortness of breath. HISTORY OF PRESENT ILLNESS: Mr. Nunn is a very pleasant 58-year-old gentleman with past medical history of cerebral palsy; chronic back pain; numerous spinal surgeries; chronic muscle spasms; debility, who is in bed more than normal; neuropathic pain; GERD; hypertension; diabetes mellitus; and hyperlipidemia. The patient presenting with worsening shortness of breath that has been progressive over the past 3 weeks. The patient with cerebral palsy. He is more bed-bound with limited functional status. The patient states that he is able to get up and move around with help of physical therapy. Over the past 3 weeks, the patient has been having worsening shortness of breath, he has been very tired, he has been to the emergency department twice at [facility], and he was sent home both times stating that they could not find anything wrong. With the patient's symptoms of chest pain and shortness of breath, a CT angiography of the chest was performed, please see full report for details-there is acute left-sided lower lobe pulmonary embolism with extension into the superior segment of the pulmonary artery of the left lower lobe. The patient admitted to medical unit with telemetry for further management. The patient was started on IV anticoagulation. PAST MEDICAL HISTORY: 1. Cerebral palsy. 2. Diabetes mellitus. 3. Hypertension. 4. Hyperlipidemia. 5. Chronic back pain. 6. Neuropathic pain. 7. Debility with bed-bound state. PAST SURGICAL HISTORY: The patient states that he has had 27 spine surgeries in the past. REVIEW OF SYSTEMS: A 10-point review of systems was performed and negative aside from what mentioned in the history of present illness. MEDICATIONS: 1. Lyrica 300 mg one tab p.o. b.i.d. 2. Protonix 40 mg one tab p.o. daily. 3. Multivitamin one tab p.o. daily. 4. Metoprolol succinate 25 mg one tab p.o. daily. 5. Lisinopril 40 mg one tab p.o. daily. 6. Fluticasone propionate nasal spray two sprays each nostril p.r.n. allergy symptoms. 7. Metformin 1000 mg one tab p.o. b.i.d. 8. Loratadine 10 mg one tab p.o. daily p.r.n. allergy symptoms. 9. Lidocaine patch 5% one patch topically daily. 10. Ibuprofen 600 mg p.o. q.6 hours p.r.n. pain. 11. Famotidine 20 mg one tab p.o. b.i.d. 12. Flexeril 10 mg one tab p.o. t.i.d. p.r.n. muscle spasms. 13. Atorvastatin 80 mg one tab p.o. at bedtime. ALLERGIES: NO KNOWN DRUG ALLERGIES. PHYSICAL EXAMINATION: VITAL SIGNS: Temperature 97.7, pulse 83, respirations 18, O2 saturation 96% on room air, and blood pressure 113/65. GENERAL: The patient is alert and cooperative with exam. The patient is breathing comfortably on room air. The patient in no apparent distress. HEENT: Head is normocephalic and atraumatic. There are no appreciated exudates or erythema on the tonsils. CARDIAC: S1 and S2 present. No appreciated murmurs, rubs, or gallops. LUNGS: There are diminished breath sounds in the left lower lung lemus. All other lung lemus are clear to auscultation bilaterally without appreciated wheezing, rales, or rhonchi. EXTREMITIES: Flexion contractures from long-standing cerebral palsy. No lower extremity edema. BACK: There are chronic well-healed surgical incisions. ABDOMEN: Soft, nontender, and nondistended without focal guarding or rigidity. NEUROLOGIC: Cranial nerves II through XII are grossly intact. There are chronic flexion contractures that are more severe on the right. Hyper-reflexity in lower limbs. LABORATORY DATA: WBC 10.2, RBC 5.8, hemoglobin 14.3, hematocrit 46.4, and platelets 203. Sodium 140, potassium 4.3, chloride 108, carbon dioxide 21, anion gap 15, BUN 16, creatinine 0.94, estimated GFR 90, glucose 129, calcium 10.0, total bilirubin 0.3, AST 11, ALT 8, alkaline phosphatase 86, and creatine kinase 75. Troponin less than 0.010. Serum total protein 7.5, albumin 4.3, and lipase 21. RADIOGRAPHIC IMAGING: CT angiography of the chest-please see full report for details. Impression, nonocclusive distal left lower lobar pulmonary embolus with extension into the superior segmental pulmonary artery of the left lower lobe. ASSESSMENT/PLAN: 1. Acute left lower lobe pulmonary embolism. Start Lovenox therapy. The patient hemodynamically stable at this time. Echocardiogram ordered to evaluate for right heart strain. If there is evidence of right heart strain, we will consult Cardiology for further recommendations. If no right heart strain is appreciated on the echocardiogram, we will transition the patient to oral anticoagulation. The patient will need a full course of 6 months of oral anticoagulation and follow up with Cardiology/Pulmonology in the outpatient setting to determine if the patient can be stopped on oral anticoagulation in the 6 months' time. The patient is at elevated risk for pulmonary embolism secondary to cerebral palsy with chronic debility and a more bed-bound state. 2. Shortness of breath-secondary to above, saturating well on room air. 3. Chest pain-secondary to above. 4. Cerebral palsy. 5. Neuropathic pain. 6. Back pain. 7. Diabetes mellitus-insulin sliding scale, hold oral metformin as the patient received contrast dye. 8. Hypertension-continue the patient's home hypertensive medications. 9. Hyperlipidemia-continue home atorvastatin. 10. Elevated BMI. Job ID: [id number]
[2019-05-30] MEDS ORDERED: Enoxaparin Sodium 60 MG/0.6 ML SYRINGE SC SCH ×2 (21:00)
[2019-05-30] MEDS: Atorvastatin Calcium 40 MG TAB PO SCH (21:05)
[2019-05-30] MEDS: Famotidine 20 MG TAB PO SCH (21:30)
[2019-05-30] MEDS: Lidocaine Patch Removal 1 EACH TOP SCH (22:00)
[2019-05-30] MEDS: Pregabalin 75 MG CAP PO SCH (22:32)
[2019-05-31 05:05] LABS: #Eosinphils 0.2 thou/uL (0.0-0.7); #Lymphocytes 2.1 thou/uL (1.20-3.40); #Monocytes 0.4 thou/uL (0.11-0.59); #Neutrophils 3.1 thou/uL (1.40-6.50); %Basophils 0.6 % (0.0-1.0); %Eosinophils 3.8 % (0.0-10.0); %Lymphocytes 35.7 % (21.0-51.0); %Neutrophils 52.9 % (42.0-75.0); Hemoglobin 13.2 g/dL (14.0-18.0); Mean Corpuscular Hemoglobin 25.7 pg (27.0-31.0); Mean Corpuscular Volume 80.6 fL (78.0-98.0); Mean Platelet Volume 10.3 fL (7.4-10.4); Platelet Count 187 thou/uL (130-400); RBC Distribution Width 14.2 % (11.5-14.5); Red Blood Cell (RBC) Count 5.14 mill/uL (4.70-6.10); White Blood Cell (WBC) Count 5.9 thou/uL (4.8-10.8)
[2019-05-31 05:15] LABS: Anion Gap 12 mmol/L (10-20); BUN (Urea Nitrogen) 17 mg/dL (8.4-25.7); Calc. Creatinine Clearance 87 mL/min (70-130); Calcium 9.2 mg/dL (7.8-10.44); Carbon Dioxide 23 mmol/L (22-29); Chloride 109 mmol/L (98-107); Estimated GFR-MDRD Greater than 90; Glucose 104 mg/dL (70-105); Potassium 3.9 mmol/L (3.5-5.1); Sodium 140 mmol/L (136-145)
[2019-05-31] MEDS: Lidocaine 5% Patch TD SCH (10:17)
[2019-05-31] MEDS: Apixaban 5 MG TAB PO SCH ×2 (10:18→20:40)
[2019-05-31] MEDS: Multivit, Therapeutic 1 TAB PO SCH (10:19)
[2019-05-31] MEDS: Lisinopril 20 MG TAB PO SCH (10:19)
[2019-05-31] MEDS: Famotidine 20 MG TAB PO SCH ×2 (10:19→20:40)
[2019-05-31] MEDS: Pregabalin 75 MG CAP PO SCH ×2 (10:20→20:41)
--- NOTE | 2019-05-31 12:30 | PDOC.HOSPP ---
- Subjective Subjective: Seen and examined. Patient clinically improving. Less short of breath, improving chest discomfort for acute PE. Back pain chronic at baseline is controlled. Wants more PT/OT to get his strength. - Objective Vital Signs & Weight: Vital Signs (12 hours) Temp Pulse Pulse Pulse Resp BP BP 05/31/19 12:00 97.8 F 77 16 05/31/19 10:45 75 76 95/56 L 05/31/19 10:19 137/63 05/31/19 08:00 05/31/19 07:54 96.7 F L 65 18 05/31/19 04:00 98.2 F 68 16 BP BP BP Pulse Ox 05/31/19 12:00 99/60 98 05/31/19 10:45 99/60 05/31/19 10:19 05/31/19 08:00 95 05/31/19 07:54 93/57 L 95 05/31/19 04:00 118/72 98 Weight Weight 147 lb I&O: 05/30/19 05/31/19 06/01/19 06:59 06:59 06:59 Intake Total 1210 Output Total 900 Balance 310 Result Diagrams: 05/31/19 04:13 05/31/19 04:13 Additional Labs: Accuchecks 05/31/19 05/31/19 05/30/19 10:56 05:46 20:40 POC Glucose 165 H 109 149 H 05/30/19 16:59 POC Glucose 100 Radiology Reviewed by me: Yes (Echocardiogram) ROS - Medication Medications: Active Medications Generic Name Dose Route Start Last Admin Trade Name Freq PRN Reason Stop Dose Admin Hydrocodone Bitart/Acetaminophen 1 tab 05/30/19 11:34 05/30/19 12:28 [place] 5/325 PO 1 tab Q4H PRN Administration Moderate to Severe Pain (6-10) Apixaban 10 mg 05/31/19 09:00 05/31/19 10:18 Eliquis PO 10 mg BID KAYLYN Administration Atorvastatin Calcium 80 mg 05/30/19 21:00 05/30/19 21:05 Lipitor PO 80 mg HS KAYLYN Administration Cyclobenzaprine HCl 10 mg 05/30/19 11:32 05/30/19 21:06 Flexeril PO 10 mg TID PRN Administration Muscle Spasm Famotidine 20 mg 05/30/19 21:00 05/31/19 10:19 Pepcid PO 20 mg BID KAYLYN Administration Lidocaine 1 patch 05/31/19 09:00 05/31/19 10:17 Lidoderm 5% Patch TD 1 patch DAILY KAYLYN Administration Lisinopril 40 mg 05/31/19 09:00 05/31/19 10:19 Zestril PO 40 mg QAM KAYLYN Administration Metoprolol Succinate 25 mg 05/31/19 09:00 05/31/19 10:18 Toprol Xl PO 25 mg QAM KAYLYN Administration Miscellaneous Medication 0 each 05/30/19 21:00 05/30/19 22:00 Lidocaine Patch Removal TOP Not Given 2100 KAYLYN Multivitamins 1 tab 05/31/19 09:00 05/31/19 10:19 Theragran PO 1 tab DAILY KAYLYN Administration Pantoprazole Sodium 40 mg 05/31/19 09:00 05/31/19 10:19 Protonix PO 40 mg DAILY KAYLYN Administration Pregabalin 300 mg 05/30/19 21:00 05/31/19 10:20 Lyrica PO 300 mg BID KAYLYN Administration Sodium Chloride 10 ml 05/31/19 09:00 05/31/19 10:22 Flush - Normal Saline IVF 10 ml Q12HR KAYLYN Administration - Exam NAD, awake alert Eye: PERRL, anicteric sclera ENT: normocephalic atraumatic, moist mucosa Neck: supple, no JVD Heart: RRR, no murmur, no gallops, no rubs, normal peripheral pulses Respiratory: CTAB, no wheezes, no rales, no ronchi, normal chest expansion Gastrointestinal: soft, non-tender, non-distended, normal bowel sounds, no guarding, no rigidity Extremities: no edema Neurological: normal sensation to touch, no new deficit Neurological - other findings: Chronic debility from CP with contractures Right worse then Left Musculoskeletal: generalized weakness Psychiatric: normal affect, A&O x 3 Hosp A/P - Plan Plan: Acute PE, transition off Lovenox and starting Eliquis therapy Echo with preserved EF and no evidence of right heart strain, no need for thrombectomy Saturating well on room air Symptomatic therapy for chest discomfort associated with PE Will need a minimum full 6 months of Eliquis for PE Continue other chronic home medications as able PT/OT Will go back to SNF where he is a chronic resident in the next 24-48 hours pending clinical improvement
[2019-05-31 19:50] LABS: Hemoglobin 13.5 g/dL (14.0-18.0); Platelet Count 202 thou/uL (130-400)
[2019-05-31 20:10] LABS: Calc. Creatinine Clearance 84 mL/min (70-130); Estimated GFR-MDRD Greater than 90
[2019-05-31] MEDS: Atorvastatin Calcium 40 MG TAB PO SCH (20:40)
[2019-05-31] MEDS: Lidocaine Patch Removal 1 EACH TOP SCH (20:42)
[2019-06-01 06:50] LABS: #Basophils 0.1 thou/uL (0.0-0.2); #Eosinphils 0.3 thou/uL (0.0-0.7); #Lymphocytes 1.8 thou/uL (1.20-3.40); #Monocytes 0.6 thou/uL (0.11-0.59); #Neutrophils 4.5 thou/uL (1.40-6.50); %Basophils 0.7 % (0.0-1.0); %Eosinophils 4.6 % (0.0-10.0); %Lymphocytes 25.2 % (21.0-51.0); %Monocytes 8.4 % (0.0-10.0); %Neutrophils 61.2 % (42.0-75.0); Hemoglobin 12.5 g/dL (14.0-18.0); Mean Corpuscular HGB CONC 30.8 g/dL (32.0-36.0); Mean Corpuscular Hemoglobin 25.1 pg (27.0-31.0); Mean Corpuscular Volume 81.5 fL (78.0-98.0); Mean Platelet Volume 10.4 fL (7.4-10.4); Platelet Count 166 thou/uL (130-400); RBC Distribution Width 14.3 % (11.5-14.5); Red Blood Cell (RBC) Count 4.98 mill/uL (4.70-6.10); White Blood Cell (WBC) Count 7.3 thou/uL (4.8-10.8)
[2019-06-01 07:05] LABS: Anion Gap 12 mmol/L (10-20); BUN (Urea Nitrogen) 19 mg/dL (8.4-25.7); Calc. Creatinine Clearance 80 mL/min (70-130); Calcium 8.9 mg/dL (7.8-10.44); Carbon Dioxide 23 mmol/L (22-29); Chloride 109 mmol/L (98-107); Estimated GFR-MDRD Greater than 90; Glucose 107 mg/dL (70-105); Sodium 140 mmol/L (136-145)
[2019-06-01] MEDS: Pregabalin 75 MG CAP PO SCH ×2 (09:59→20:28)
[2019-06-01] MEDS: Lidocaine 5% Patch TD SCH (09:59)
[2019-06-01] MEDS: Multivit, Therapeutic 1 TAB PO SCH (10:00)
[2019-06-01] MEDS: Famotidine 20 MG TAB PO SCH ×2 (10:01→20:27)
[2019-06-01] MEDS: Lisinopril 20 MG TAB PO SCH (10:01)
[2019-06-01] MEDS: Apixaban 5 MG TAB PO SCH ×2 (10:01→20:27)
[2019-06-01] MEDS: HYDROcodone/Acetaminophen 5/325 mg Tablet PO PRN (10:02)
--- NOTE | 2019-06-01 11:20 | PDOC.HOSPP ---
- Subjective Subjective: Seen and examined. Still with chest pain. Breathing better, now on room air. Tolerating therapy. Clinically improving, likely anticipate D/c in the next 24 hours if continues to improve. - Objective Vital Signs & Weight: Vital Signs (12 hours) Temp Pulse Resp BP BP BP Pulse Ox 06/01/19 10:01 137/63 06/01/19 08:45 98 F 69 18 94/58 L 96 06/01/19 03:24 98.2 F 68 14 85/49 L 95 05/31/19 23:45 82/53 L 05/31/19 23:37 98.2 F 69 14 84/50 L 96 Weight Weight 151 lb I&O: 05/31/19 06/01/19 06/02/19 06:59 06:59 06:59 Intake Total 1210 1105 Output Total 900 Balance 310 1105 Result Diagrams: 06/01/19 06:17 06/01/19 06:17 Additional Labs: Accuchecks 06/01/19 06/01/19 05/31/19 11:01 05:24 20:18 POC Glucose 102 118 H 159 H 05/31/19 16:51 POC Glucose 108 ROS - Medication Medications: Active Medications Generic Name Dose Route Start Last Admin Trade Name Freq PRN Reason Stop Dose Admin Hydrocodone Bitart/Acetaminophen 1 tab 05/30/19 11:34 06/01/19 10:02 Carver 5/325 PO 1 tab Q4H PRN Administration Moderate to Severe Pain (6-10) Apixaban 10 mg 05/31/19 09:00 06/01/19 10:01 Eliquis PO 10 mg BID KAYLYN Administration Atorvastatin Calcium 80 mg 05/30/19 21:00 05/31/19 20:40 Lipitor PO 80 mg HS KAYLYN Administration Cyclobenzaprine HCl 10 mg 05/30/19 11:32 05/30/19 21:06 Flexeril PO 10 mg TID PRN Administration Muscle Spasm Famotidine 20 mg 05/30/19 21:00 06/01/19 10:01 Pepcid PO 20 mg BID KAYLYN Administration Insulin Human Lispro 0 units 05/30/19 11:37 05/31/19 14:03 Humalog SC 2 unit .MILD SLIDING SCALE PRN Administration Mild Correctional Scale Lidocaine 1 patch 05/31/19 09:00 06/01/19 09:59 Lidoderm 5% Patch TD 1 patch DAILY KAYLYN Administration Lisinopril 40 mg 05/31/19 09:00 06/01/19 10:01 Zestril PO 40 mg QAM KAYLYN Administration Metoprolol Succinate 25 mg 05/31/19 09:00 06/01/19 10:01 Toprol Xl PO 25 mg QAM KAYLYN Administration Miscellaneous Medication 0 each 05/30/19 21:00 05/31/19 20:42 Lidocaine Patch Removal TOP 1 each 2100 KAYLYN Administration Multivitamins 1 tab 05/31/19 09:00 06/01/19 10:00 Theragran PO 1 tab DAILY KAYLYN Administration Pantoprazole Sodium 40 mg 05/31/19 09:00 06/01/19 10:02 Protonix PO 40 mg DAILY KAYLYN Administration Pregabalin 300 mg 05/30/19 21:00 06/01/19 09:59 Lyrica PO 300 mg BID KAYLYN Administration Sodium Chloride 10 ml 05/31/19 09:00 06/01/19 10:02 Flush - Normal Saline IVF 10 ml Q12HR KAYLYN Administration - Exam NAD, awake alert Eye: PERRL ENT: moist mucosa Neck: supple, no JVD Heart: no murmur, no gallops, no rubs, normal peripheral pulses Respiratory: no wheezes, no rales, no ronchi Respiratory - other findings: Decreased breath sounds lower lung field on the left. Gastrointestinal: soft, non-tender, non-distended, normal bowel sounds, no guarding, no rigidity Extremities: 1+ LE edema Skin: no lesions, no rashes Neurological: CN's grossly intact, no new deficit Neurological - other findings: CP with flexion contractures, hypertonicity Psychiatric: normal affect, A&O x 3 Psychiatric - other findings: In pleasant mood Hosp A/P (1) Acute pulmonary embolism Code(s): I26.99 - OTHER PULMONARY EMBOLISM WITHOUT ACUTE COR PULMONALE Status : Acute (2) GERD (gastroesophageal reflux disease) Code(s): K21.9 - GASTRO-ESOPHAGEAL REFLUX DISEASE WITHOUT ESOPHAGITIS Status: Chronic (3) HTN (hypertension) Code(s): I10 - ESSENTIAL (PRIMARY) HYPERTENSION Status: Chronic Qualifiers: Hypertension type: essential hypertension Qualified Code(s): I10 - Essential (primary) hypertension (4) Pain Code(s): R52 - PAIN, UNSPECIFIED Status: Acute (5) Cerebral palsy Code(s): G80.9 - CEREBRAL PALSY, UNSPECIFIED Status: Chronic Qualifiers: Cerebral palsy type: unspecified type Qualified Code(s): G80.9 - Cerebral palsy, unspecified (6) Lumbar radiculopathy Code(s): M54.16 - RADICULOPATHY, LUMBAR REGION Status: Chronic - Plan Plan: Acute PE, transition off Lovenox and starting Eliquis therapy Echo with preserved EF and no evidence of right heart strain, no need for thrombectomy Saturating well on room air Symptomatic therapy for chest discomfort associated with PE Will need a minimum full 6 months of Eliquis for PE Continue other chronic home medications as able PT/OT Will go back to SNF where he is a chronic resident in the next 24 hours pending clinical improvement
[2019-06-01] MEDS: Lidocaine Patch Removal 1 EACH TOP SCH (20:27)
[2019-06-01] MEDS: Atorvastatin Calcium 40 MG TAB PO SCH (20:27)
[2019-06-02 05:31] LABS: #Eosinphils 0.3 thou/uL (0.0-0.7); #Lymphocytes 1.7 thou/uL (1.20-3.40); #Monocytes 0.6 thou/uL (0.11-0.59); %Basophils 0.1 % (0.0-1.0); %Lymphocytes 26.2 % (21.0-51.0); %Monocytes 8.3 % (0.0-10.0); %Neutrophils 60.4 % (42.0-75.0); Mean Corpuscular HGB CONC 32.1 g/dL (32.0-36.0); Mean Corpuscular Hemoglobin 25.7 pg (27.0-31.0); Mean Corpuscular Volume 80.1 fL (78.0-98.0); Platelet Count 179 thou/uL (130-400); RBC Distribution Width 14.1 % (11.5-14.5); Red Blood Cell (RBC) Count 5.06 mill/uL (4.70-6.10); White Blood Cell (WBC) Count 6.6 thou/uL (4.8-10.8)
[2019-06-02 05:49] LABS: Anion Gap 12 mmol/L (10-20); BUN (Urea Nitrogen) 19 mg/dL (8.4-25.7); Calc. Creatinine Clearance 84 mL/min (70-130); Calcium 8.9 mg/dL (7.8-10.44); Carbon Dioxide 24 mmol/L (22-29); Chloride 107 mmol/L (98-107); Estimated GFR-MDRD Greater than 90; Glucose 133 mg/dL (70-105); Potassium 3.9 mmol/L (3.5-5.1); Sodium 139 mmol/L (136-145)
[2019-06-02] MEDS: Pregabalin 75 MG CAP PO SCH (09:58)
[2019-06-02] MEDS: Apixaban 5 MG TAB PO SCH (09:59)
[2019-06-02] MEDS: Multivit, Therapeutic 1 TAB PO SCH (10:00)
[2019-06-02] MEDS: Lisinopril 20 MG TAB PO SCH (10:00)
[2019-06-02] MEDS: Famotidine 20 MG TAB PO SCH (10:01)
[2019-06-02] MEDS: Lidocaine 5% Patch TD SCH (10:02)
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
[2019-06-02 13:08] VITALS: BP 122/83; TEMP 98
--- NOTE | 2019-06-03 00:47 | DIS ---
DATE OF ADMISSION: 05/30/2019 DATE OF DISCHARGE: 06/02/2019 REASON FOR HOSPITALIZATION: Shortness of breath. SIGNIFICANT FINDINGS: The patient with CT angiography of the chest confirming acute pulmonary embolism. PROCEDURES PERFORMED AND TREATMENTS RENDERED: The patient was confirmed to have acute pulmonary embolism on CT angiography of the chest, placed on IV anticoagulation. The patient was then safely transitioned to oral anticoagulation. The patient had an echocardiogram that did not demonstrate any right heart strain. CONDITION ON DISCHARGE: Stable. SPECIFIC INSTRUCTIONS FOR THE PATIENT/FAMILY: 1. The patient is to continue with inpatient physical therapy and occupational therapy in the subacute setting. 2. The patient is to take all medications as directed, to be re-evaluated by admitting physician. 3. The patient is to follow up with internal medicine physician in the next 1 to 2 days. 4. The patient is to follow up with Pulmonology in the next 3 to 6 months to see if he is a candidate to be discontinued on oral anticoagulation therapy 6 months from today. 5. The patient is to return to acute care hospital immediately for any new signs or symptoms. HOME MEDICATIONS: Discharge medications: Please see full medication list for details. New medications include, 1. Eliquis 10 mg p.o. b.i.d. for an additional 4 days. 2. Eliquis 5 mg one tablet p.o. b.i.d. after initial high-dose therapy for maintenance. HOSPITAL COURSE: Mr. Nunn is a very pleasant 58-year-old gentleman who presents with worsening shortness of breath on 05/30/2019. The patient with CT angiography of the chest, please see full report for details, there was confirmed nonocclusive distal left lower lobar pulmonary embolism with extension into the superior segmental pulmonary artery of the left lower lobe. The patient initially placed on IV anticoagulation. The patient had an echocardiogram on 05/30/2019, please see full report for details, there is normal ejection fraction without evidence of right heart strain. With the patient having an acute pulmonary embolism, he was also placed on oxygen therapy as needed. Breathing treatments were available as needed. With maximum medical therapy, the patient did improve daily. The patient was weaned off all oxygen therapy. The patient is able to work with physical therapy and occupational therapy and return to his prior baseline functional status. The patient was recommended safe for discharge on 06/02/2019, with close followup in the outpatient setting. The patient is recommended to take all medications as directed, to be re-evaluated by admitting physician in the next 1 to 2 days. The patient is to follow up with Pulmonology in the next 3 to 6 months to see if he is a candidate to be stopped on oral anticoagulation at 6-month alea from today. Due to the patient's medical comorbidities including cerebral palsy and a more sedentary state, he is at elevated risk for thromboembolic events and he may not be a candidate to be removed off oral anticoagulation. The patient was recommended to return to acute care immediately if signs or symptoms return, worsen, or any other new symptoms occur. Greater than 35 minutes spent coordinating the care and discharge process for this patient. Job ID: [id number]
== END 2019-06-02 13:51 | DRG 176 ==
LOC: ERS 05:20 → 2NO 08:44
PROVIDERS: ADMIT Internal Medicine; ATTEND Internal Medicine
DX: I26.99 Other pulmonary embolism without acute cor pulmonale (principal); G89.29 Other chronic pain; M54.9 Dorsalgia, unspecified; I10 Essential (primary) hypertension; E11.9 Type 2 diabetes mellitus without complications; E78.5 Hyperlipidemia, unspecified; Z79.51 Long term (current) use of inhaled steroids; Z74.01 Bed confinement status; Z79.899 Other long term (current) drug therapy; Z79.84 Long term (current) use of oral hypoglycemic drugs
CPT/HCPCS: 36415; 36416; 71045; 71275; 80048; 80053; 82550; 83690; 84484; 85025; 93005; 93306; 96372; J1650; Q9966

== ENCOUNTER 2019-09-26 10:31 | Emergency (ER) | payer MEDICARE, MEDICAID ==
[2019-09-26] MEDS ORDERED: Ketorolac Tromethamine 30 MG/ML VIAL ONE (11:10)
[2019-09-26] MEDS ORDERED: Diazepam 10 MG/2 ML SYRINGE ONE (11:10)
[2019-09-26 11:43] LABS: #Eosinphils 0.3 thou/uL (0.0-0.7); #Lymphocytes 1.5 thou/uL (1.20-3.40); #Monocytes 0.4 thou/uL (0.11-0.59); %Basophils 0.4 % (0.0-1.0); %Eosinophils 4.6 % (0.0-10.0); %Monocytes 6.1 % (0.0-10.0); Hemoglobin 12.7 g/dL (14.0-18.0); Mean Corpuscular HGB CONC 32.2 g/dL (32.0-36.0); Mean Corpuscular Hemoglobin 25.8 pg (27.0-31.0); Mean Platelet Volume 9.9 fL (7.4-10.4); Platelet Count 182 thou/uL (130-400); RBC Distribution Width 15.6 % (11.5-14.5); Red Blood Cell (RBC) Count 4.93 mill/uL (4.70-6.10); White Blood Cell (WBC) Count 7.3 thou/uL (4.8-10.8)
[2019-09-26 12:07] LABS: ALT (SGPT) 19 U/L (8-55); AST (SGOT) 14 U/L (5-34); Albumin 4.2 g/dL (3.5-5.0); Alkaline Phosphatase 68 U/L (40-110); Anion Gap 16 mmol/L (10-20); BUN (Urea Nitrogen) 16 mg/dL (8.4-25.7); Bilirubin, Total 0.4 mg/dL (0.2-1.2); Calc. Creatinine Clearance 0 mL/min (70-130); Calcium 9.3 mg/dL (7.8-10.44); Carbon Dioxide 23 mmol/L (22-29); Chloride 108 mmol/L (98-107); Estimated GFR-MDRD Greater than 90; Globulin 2.9 g/dL (2.4-3.5); Glucose 116 mg/dL (70-105); Protein, Total 7.1 g/dL (6.0-8.3); Sodium 143 mmol/L (136-145)
--- NOTE | 2019-09-26 13:12 | RAD ---
FRONTAL RADIOGRAPH CHEST: Date: 09/26/19 COMPARISON: 05/20/19. HISTORY: Back pain. FINDINGS: Cervical spine hardware is present, incompletely assessed. Lungs are clear. Heart and mediastinal con tours are stable. IMPRESSION: Stable appearance of the chest. No acute findings. POS: OFF
--- NOTE | 2019-09-26 13:15 | RAD ---
FRONTAL AND LATERAL IMAGING OF THORACIC SPINE: Date: 09/26/19 COMPARISON: None. HISTORY: Pain. FINDINGS: Incompletely evaluated cervical spine hardware present. There is multilevel mild disc space narrowing within the mid and lower thoracic spine with mild multifocal thoracic spine anterior osteophyte form ation. Thoracic pedicles appear intact on frontal imaging. No acute fracture. No anterolisthesis or r etrolisthesis. IMPRESSION: Degenerative change as above. POS: OFF
--- NOTE | 2019-09-26 13:18 | RAD ---
LUMBAR SPINE 3 VIEWS: Date: 09/26/19 COMPARISON: 03/23/18. HISTORY: Low back pain. FINDINGS: There is a disc device at L3-4, L4-5, and L5-S1, stable when compared to the prior examination. There is stable retrolisthesis at L3-4 measuring approximately 7-8 mm. There is disc space narrowing with prominent anterior osteophyte formation at L3-4, stable as well. Bilateral L4 and L5 pedicle screws a re present with vertically oriented interlocking rods. There is extensive bone graft material posteri serenity from the L3 level through the S1 level. No acute osseous abnormality. There is stable slight pos terior displacement of the intervertebral disc device at the L3-4 level. IMPRESSION: Postoperative and degenerative change within the lumbar spine, not significantly changed when compare d to the prior exam as detailed above. POS: OFF
== END 2019-09-26 14:01 | disposition home or self-care (01) ==
LOC: ERS 10:31
DX: M54.5 Low back pain (principal); I10 Essential (primary) hypertension; E11.9 Type 2 diabetes mellitus without complications; G43.909 Migraine, unspecified, not intractable, without status migrainosus; G80.9 Cerebral palsy, unspecified; Z79.84 Long term (current) use of oral hypoglycemic drugs; Z79.899 Other long term (current) drug therapy
CPT/HCPCS: 36415; 71045; 72070; 72100; 80053; 84484; 85025; 93005; 96372; 96374; J1885; J3360

== ENCOUNTER 2019-09-29 07:22 | Day surgery (SDC) | payer MEDICARE, MEDICAID ==
[2019-09-29 11:23] VITALS: BMI 28.3
--- NOTE | 2019-09-29 11:24 | CT ---
CT cervical spine with contrast: (CT cervical myelogram) DATE: 09/29/2019 FINDINGS: Cervical spinal canal is diffusely small in caliber on a congenital basis due to developmentally shor t pedicles. This is exacerbated by cervical spondylosis. ACDF hardware consisting of anterior metallic plate and screws at C4, C5, C6, and C7, plus markers for interbody cages at the C4-5, C5-6, and C6-C7 disc spaces. No osseous bridges between the endplates are seen at C4-5 and C5-6. A single central osseous bridge is present at C6-7 disc space. Small, moderate, and large uncinate process ost eophytes encroach upon neural foramina at various levels. No high-grade facet DJD at any level. C1-2: Mild central stenosis mostly on developmental basis. C2-3: Mild disc space narrowing. Small central and bilateral paracentral partially calcified broad-ba sed disc protrusion, asymmetrically more focal and larger on the right side, slightly indenting the right side of the spinal cord. Moderate central spinal canal stenosis. No high-grade neural foraminal stenosis. C3-4: Moderate-severe bilateral neural foraminal stenosis. Shallow partially calcified broad-based di sc bulge. Moderate to severe central spinal canal stenosis. C4-5: Mild right neural foraminal stenosis. Moderate left neural foraminal stenosis. Broad-based shal low disc-osteophytic bar complex encroaches upon the spinal canal. Moderate to severe central spinal canal stenosis. C5-6: Central focal midline disc-osteophyte complex abuts and mildly indents the ventral surface of t he spinal cord. Moderate central spinal canal stenosis. Moderate to severe bilateral neural foraminal stenosis. C6-7: There is severe right neural foraminal stenosis due to large right uncinate process osteophytes . Severe left neural foraminal stenosis. Mild to moderate central stenosis. C7-T1: Moderate to severe right neural foraminal stenosis. Mild to moderate left neural foraminal waldo nosis. Mild central stenosis. IMPRESSION: 1. Developmentally small caliber spinal canal exacerbated by cervical spondylosis, mostly degenerativ e disc disease. 2. Multilevel high-grade central spinal canal stenosis and high-grade bilateral neural foraminal sten osis. 3. Status post anterior cervical discectomy and fusion at C4-5-6-7.
[2019-09-29 11:29] VITALS: BP 133/85; TEMP 98.7
--- NOTE | 2019-09-29 11:45 | CT ---
CT thoracic spine with contrast: ([facility] thoracic myelogram) DATE: 09/29/2019 HISTORY: Thoracic myelopathy. Dr. Fletcher notified Joanne Felicitas of [facility] that there is cord compression at 11:31 AM on 09/29/2019. She was in structed to notify Damaris Castro, the ordering PA, as soon as she returns to the office from surgery. Dr. Fletcher notified Mima Castro of the cord compression by [employer] direct text message at 11:37 AM on . FINDINGS: At T7-8 there is a moderate size central disc extrusion which deeply indents the spinal cord and mild ly displaces it posteriorly. Overall mild to moderate degree of central spinal canal stenosis at this level. At T11-12 there is shallow broad-based disc herniation or disc bulge abutting the ventral surface of the spinal cord. Ligamentum flavum thickening. Overall moderate central spinal canal stenosis at this level. Moderate right neural foraminal stenosis. Chronic mild anterior wedging of T12. The rest of the vertebral body heights are maintained. Multilev el mild degenerative disc disease. No acute fracture. IMPRESSION: Central extruded disc herniation at T7-8 causing spinal cord impingement/compression.
--- NOTE | 2019-09-29 12:01 | CT ---
CT lumbar spine with contrast: (CT lumbar myelogram) DATE: 09/29/2019 HISTORY: 58-year-old male with low back pain and lumbar spondylosis with lumbar myelopathy. FINDINGS: Mild chronic anterior wedging of L1. No major spondylolisthesis. Conus medullaris terminates at L2. T12-L1: Essentially normal. L1-2:Essentially normal. L2-3: Disc space maintained. Central disc extrusion with superior migration up to the pedicle level o f L2. This indents the ventral aspect of the thecal sac. No significant central spinal canal stenosis. Posterior epidural fat pad. This fat pad, together with the disc extrusion, results in mode rate thecal sac stenosis, with crowding of cauda equina. No high-grade neural foraminal stenosis. L3-4: Mild to moderate disc space narrowing. Several tiny metallic markers in the intervertebral disc space. No osseous bridges across the disc space. There is a large left anterior bridging osteophytes protruding into the prevertebral space just to the left of the lower aorta. 2 of the alea ers in the disc space are displaced posteriorly on the left, together with the interbody bone graft which occupies the left lateral aspect of the spinal canal, medially displacing several left-sided ne rve roots of the cauda equina. There is severe bony hypertrophy which broadly indents the posterior aspect of the thecal sac. The bony hypertrophy is part of the bilateral onlay bone graft fusion of po sterior elements including facet joints, right greater than left. Overall moderate thecal sac stenosis. Mild to moderate bilateral neural foraminal stenosis. L4-5: Bilateral L4 and L5 pedicle screws, without evidence of loosening or malpositioning. Midline la minectomy defect results in generous caliber of thecal sac. Low density filling defect within the thecal sac represents blood from epidural venous plexus puncture. This should resolve. No significant focal disc herniation. No neural foraminal stenosis. Successful ankylosis of right facet joint by onlay bone graft fusion. L5-S1: Metallic cylindrical cages within the disc space. Successful ankylosis of bilateral facet join ts by onlay bone graft fusion. No central stenosis. Moderate bilateral neural foraminal stenosis due to the posterior element hypertrophy. IMPRESSION: 1.) The L3-4 interbody bone graft protrudes into the left side of the spinal canal. 2) moderate size central disc extrusion at L2-3 with superior migration. 3) status post midline laminectomy and bilateral pedicle screw placement at L4-5. 4) metallic interbody cage at L5-S1. 5) successful ankylosis of posterior element onlay bone graft fusion at multiple levels. 6) moderate thecal sac stenosis at L2-3 and L3-4.
--- NOTE | 2019-09-29 12:05 | RAD ---
Myelogram lumbar: DATE: 09/29/2019 HISTORY: 58 year old male with low back pain, lumbar spondylosis with lumbar myelopathy, cervical spondylosis with cervical myelopathy, cervicalgia. TECHNIQUE: Signed informed consent obtained. Skin of lower back prepped and draped in usual sterile fashion. 25- gauge needle used to apply buffered lidocaine. Under brief, intermittent fluoroscopy, 22-gauge spinal needle advanced into spinal canal at midline at the L5 level, through the laminectomy defect. Upon return of CSF, a total of 10 mL of Isovue-M 300 injected intrathecally under brief, intermittent fluoroscopy. Spinal needle removed. Patient tilted prone Trendelenburg to allow contrast to flow into the thoracic spine and cervical spine. Patient was then taken to CT. Patient tolerated procedure well. No complications. IMPRESSION: 1. Technically successful cervical, thoracic, and lumbar myelogram. 2. See separate reports of the CTs associated with those.
== END 2019-09-29 10:35 | disposition home or self-care (01) ==
LOC: RAD 07:22
PROVIDERS: ATTEND Neurological Surgery
PROC: B01B1ZZ Fluoroscopy of Spinal Cord using Low Osmolar Contrast (ICD-10-PCS; principal; 2019-09-29)
DX: M47.12 Other spondylosis with myelopathy, cervical region (principal); M47.16 Other spondylosis with myelopathy, lumbar region; M51.04 Intervertebral disc disorders with myelopathy, thoracic region; M48.02 Spinal stenosis, cervical region; M48.061 Spinal stenosis, lumbar region without neurogenic claudication; E11.9 Type 2 diabetes mellitus without complications; K21.9 Gastro-esophageal reflux disease without esophagitis; E78.5 Hyperlipidemia, unspecified; G80.9 Cerebral palsy, unspecified; I10 Essential (primary) hypertension; Z79.01 Long term (current) use of anticoagulants; Z79.84 Long term (current) use of oral hypoglycemic drugs; Z79.899 Other long term (current) drug therapy; Z98.1 Arthrodesis status; Z99.3 Dependence on wheelchair
CPT/HCPCS: 62305; 72126; 72129; 72132

== ENCOUNTER 2019-11-08 10:56 | Emergency (ER) | payer MEDICARE, MEDICAID ==
[2019-11-08 12:10] LABS: #Eosinphils 0.3 thou/uL (0.0-0.7); #Lymphocytes 1.2 thou/uL (1.20-3.40); #Monocytes 0.5 thou/uL (0.11-0.59); #Neutrophils 4.7 thou/uL (1.40-6.50); %Basophils 0.6 % (0.0-1.0); %Eosinophils 3.8 % (0.0-10.0); %Lymphocytes 17.7 % (21.0-51.0); %Monocytes 7.1 % (0.0-10.0); %Neutrophils 70.8 % (42.0-75.0); Hemoglobin 13.2 g/dL (14.0-18.0); Mean Corpuscular HGB CONC 31.5 g/dL (32.0-36.0); Mean Corpuscular Hemoglobin 25.7 pg (27.0-31.0); Mean Corpuscular Volume 81.6 fL (78.0-98.0); Mean Platelet Volume 9.5 fL (7.4-10.4); Platelet Count 196 thou/uL (130-400); RBC Distribution Width 15.6 % (11.5-14.5); Red Blood Cell (RBC) Count 5.13 mill/uL (4.70-6.10); White Blood Cell (WBC) Count 6.6 thou/uL (4.8-10.8)
[2019-11-08 12:39] LABS: ALT (SGPT) 16 U/L (8-55); AST (SGOT) 12 U/L (5-34); Albumin 4.3 g/dL (3.5-5.0); Alkaline Phosphatase 71 U/L (40-110); Anion Gap 15 mmol/L (10-20); BUN (Urea Nitrogen) 18 mg/dL (8.4-25.7); Bilirubin, Total 0.5 mg/dL (0.2-1.2); Calc. Creatinine Clearance 0 mL/min (70-130); Calcium 8.9 mg/dL (7.8-10.44); Carbon Dioxide 23 mmol/L (22-29); Chloride 107 mmol/L (98-107); Estimated GFR-MDRD Greater than 90; Globulin 2.8 g/dL (2.4-3.5); Glucose 93 mg/dL (70-105); Lipase 24 U/L (8-78); Protein, Total 7.1 g/dL (6.0-8.3); Sodium 141 mmol/L (136-145)
--- NOTE | 2019-11-08 12:57 | CT ---
CT ABDOMEN AND PELVIS WITH IV CONTRAST 11/08/2019 CLINICAL INFORMATION: Left lower quadrant abdominal pain. COMPARISON: 04/19/2017 Technique: Multiple contiguous axial CT images are obtained through the abdomen and pelvis with IV contrast. Cor onal reformatted images are provided. FINDINGS: Lower Chest: Mild volume loss is present. Vessels: Atherosclerotic plaque is present, but the abdominal aorta is normal in caliber. Abdomen: Portal vein:Patent Gallbladder: Within normal limits for CT imaging. Liver: within normal limits. Spleen: within normal limits. Pancreas: within normal limits. Adrenals: Slight nodularity left adrenal gland is noted, but this is a stable finding. Degenerative g lands otherwise have a normal CT appearance. Kidneys: within normal limits. Bowel: Small to moderate amount retained fecal material is seen throughout the colon. Loops of small bowel are normal in caliber. Appendix: Proximal appendix is mildly prominent but filled with gas. The remainder the appendix is no rmal in caliber. Peritoneum: No ascites or free air; no fluid collection. Mesentery and Retroperitoneum: No enlarged mesenteric or retroperitoneal lymph nodes. Abdominal Wall: within normal limits. Pelvis: Reproductive Organs: No pelvic masses. Pelvis within normal limits. Bladder: Urinary bladder is decompressed, but the almaraz of the urinary bladder do appear mildly thick ened. Bladder wall thickening can be seen with cystitis in the correct clinical scenario. No perivesical inflammatory changes are identified. Bones: Postoperative and degenerative changes of the lumbar spine are again seen. IMPRESSION: 1. Suggested mild thickening of the almaraz of the urinary bladder. While a degree of urinary bladder w all thickening is related to incomplete distention, the degree of thickening is more than typically expected for this degree of incomplete distention, cystitis cannot be entirely excluded. 2. There are otherwise no acute findings seen in the abdomen or pelvis.
[2019-11-08 13:04] LABS: Bilirubin Negative (Negative); Blood, Urine Negative (Negative); Clarity Clear (Clear); Glucose, Urine (Dipstick) Normal (Negative); Leukocyte Negative Leu/uL (Negative); Nitrite Negative (Negative); Protein, Urine (Dipstick) 10 mg/dL (Neg-Trace); Urobilinogen Normal mg/dL (Less than 2)
[2019-11-08] MEDS ORDERED: Iopamidol-370 76% 500 ML 1 ML ONE (13:23)
== END 2019-11-08 14:25 | disposition home or self-care (01) ==
LOC: ERS 10:56
DX: R10.84 Generalized abdominal pain (principal); I10 Essential (primary) hypertension; G43.909 Migraine, unspecified, not intractable, without status migrainosus; E11.9 Type 2 diabetes mellitus without complications
CPT/HCPCS: 36415; 74177; 80053; 81003; 83690; 85025; Q9967

== ENCOUNTER 2019-11-28 15:34 | Emergency (ER) | payer MEDICAID, MEDICARE ==
[2019-11-28 19:03] LABS: #Eosinphils 0.4 thou/uL (0.0-0.7); #Lymphocytes 1.6 thou/uL (1.20-3.40); #Monocytes 0.6 thou/uL (0.11-0.59); %Basophils 0.6 % (0.0-1.0); %Eosinophils 4.7 % (0.0-10.0); %Lymphocytes 18.3 % (21.0-51.0); %Monocytes 6.8 % (0.0-10.0); %Neutrophils 69.6 % (42.0-75.0); Hemoglobin 13.7 g/dL (14.0-18.0); Mean Corpuscular HGB CONC 32.4 g/dL (32.0-36.0); Mean Corpuscular Hemoglobin 26.3 pg (27.0-31.0); Mean Corpuscular Volume 81.2 fL (78.0-98.0); Mean Platelet Volume 10.5 fL (7.4-10.4); Platelet Count 200 thou/uL (130-400); RBC Distribution Width 15.7 % (11.5-14.5); Red Blood Cell (RBC) Count 5.21 mill/uL (4.70-6.10); White Blood Cell (WBC) Count 8.6 thou/uL (4.8-10.8)
[2019-11-28 19:31] LABS: ALT (SGPT) 18 U/L (8-55); AST (SGOT) 20 U/L (5-34); Albumin 4.3 g/dL (3.5-5.0); Alkaline Phosphatase 74 U/L (40-110); Anion Gap 17 mmol/L (10-20); BUN (Urea Nitrogen) 15 mg/dL (8.4-25.7); Bilirubin, Total 0.4 mg/dL (0.2-1.2); CK (CPK) 157 U/L (30-200); Calc. Creatinine Clearance 0 mL/min (70-130); Carbon Dioxide 24 mmol/L (22-29); Chloride 106 mmol/L (98-107); Estimated GFR-MDRD Greater than 90; Globulin 3.3 g/dL (2.4-3.5); Glucose 81 mg/dL (70-105); Potassium 4.3 mmol/L (3.5-5.1); Protein, Total 7.6 g/dL (6.0-8.3); Sodium 143 mmol/L (136-145)
--- NOTE | 2019-11-28 20:39 | CT ---
Exam: Head CT without contrast HISTORY: Headache. Symptoms x5 days COMPARISON: 11/23/2014 FINDINGS: Hemorrhage: No intraparenchymal hemorrhage or extra-axial hematoma. Brain parenchyma: Cortical santana-white matter differentiation is preserved. No mass effect or midline shift. Basilar cisterns are patent. Ventricular system: Stable contour abnormality of the lateral ventricles. Calvarium: Intact. Sinuses and mastoid air cells: Mild opacification of the right sphenoid sinus IMPRESSION: No acute intracranial process.
--- NOTE | 2019-11-28 20:55 | RAD ---
Exam: Chest one view HISTORY:Chest pain Comparison: 09/26/2019 FINDINGS: Cardiac silhouette: Normal Aorta: Unremarkable Pulmonary vessels: Normal Costophrenic angles: Clear LUNGS: No masses or consolidation. Pneumothorax: None Osseous abnormalities: Cervical fusion hardware is redemonstrated IMPRESSION: No acute cardiopulmonary process.
[2019-11-28] MEDS ORDERED: Aspirin 325 MG TAB ONE (22:01)
[2019-11-28] MEDS ORDERED: Aspirin Chewable 81 MG TAB ONE (22:03)
[2019-11-28 22:09] LABS: Bacteria/HPF None Seen HPF (None Seen); Bilirubin Negative (Negative); Blood, Urine Negative (Negative); Clarity Clear (Clear); Glucose, Urine (Dipstick) Normal (Negative); Leukocyte Negative Leu/uL (Negative); Nitrite Negative (Negative); Protein, Urine (Dipstick) 30 mg/dL (Neg-Trace); RBC/HPF None Seen HPF (0-3); Squamous Epithelial 0-3 HPF (0-3); WBC/HPF 0-3 HPF (0-3)
[2019-11-28 22:30] LABS: Lactic Acid 2.2 mmol/L (0.5-2.2)
[2019-11-28] MEDS ORDERED: Morphine 4 MG/ML VIAL ONE (22:53)
[2019-11-29] MEDS ORDERED: Lidocaine Viscous Sol 2% 15 ml UD Cup ONE (00:10)
[2019-11-29] MEDS ORDERED: Mag-Al 1200 mg/1200 mg/30 ML UDCUP ONE (00:10)
== END 2019-11-29 00:56 ==
LOC: ERS 15:34
DX: R07.89 Other chest pain (principal); R51 Headache; I10 Essential (primary) hypertension; E11.9 Type 2 diabetes mellitus without complications; G80.9 Cerebral palsy, unspecified; Z79.899 Other long term (current) drug therapy; Z79.84 Long term (current) use of oral hypoglycemic drugs
CPT/HCPCS: 36415; 70450; 71045; 80053; 81003; 81015; 82550; 83605; 83690; 84484; 85025; 85379; 93005; 94760; 96361; 96374; J2270

== ENCOUNTER 2020-04-07 09:11 | Inpatient (IN) | payer MEDICARE, MEDICAID, OTHER ==
[2020-04-07] MEDS ORDERED: Albuterol 200 PUFF (6.7GM INHALER) ONE ×2 (09:34→10:02)
--- NOTE | 2020-04-07 09:42 | RAD ---
EXAM: Single view of the chest HISTORY: Sepsis. Covid positive COMPARISON: 11/28/2019 FINDINGS: Single view of the chest shows a normal sized cardiomediastinal silhouette. There may be a subtle infiltrate in the right costophrenic angle. Hardware seen in the cervical spine. IMPRESSION: Possible right lower lobe infiltrate.
[2020-04-07 09:52] LABS: Analyzer IN Cardio ER; Base Excess (BEa) -25.3 mEq/L (-2.0 to +3.0); Calcium, Ionized (arterial) 1.06 mmol/L (1.12-1.30); Carboxyhemoglobin (COHb) 0.3 gm% (0.0-3.0); Hemoglobin (Hb) 15.5 g/dL (14.0-18.0); O2 Tension (PaO2), arterial 103.6 mmHg (80.0-100.0); Potassium - ABG Lab 7.91 mmol/L (3.70-5.30)
[2020-04-07 10:01] LABS: #Lymphocytes 1.6 thou/uL (1.20-3.40); #Monocytes 1.5 thou/uL (0.11-0.59); #Neutrophils 11.5 thou/uL (1.40-6.50); %Basophils 0.3 % (0.0-1.0); %Eosinophils 0.2 % (0.0-10.0); %Neutrophils 78.6 % (42.0-75.0); Hemoglobin 15.2 g/dL (14.0-18.0); Mean Corpuscular HGB CONC 30.8 g/dL (32.0-36.0); Mean Corpuscular Hemoglobin 26.7 pg (27.0-31.0); Mean Corpuscular Volume 86.5 fL (78.0-98.0); Mean Platelet Volume 12.5 fL (7.4-10.4); Platelet Count 176 thou/uL (130-400); RBC Distribution Width 15.4 % (11.5-14.5); Red Blood Cell (RBC) Count 5.69 mill/uL (4.70-6.10); White Blood Cell (WBC) Count 14.7 thou/uL (4.8-10.8)
[2020-04-07] MEDS ORDERED: Dextrose 50% Abboject 50 ML SYRINGE ONE (10:02)
[2020-04-07] MEDS ORDERED: Calcium Chloride 1 GM/10 ML Abboject SYRINGE ONE (10:02)
[2020-04-07] MEDS ORDERED: Sodium Bicarb 50 MEQ/50 ML Abboject 8.4% SYRINGE ONE ×4 (10:02→15:21)
[2020-04-07] MEDS ORDERED: Insulin Regular 300 UNITS/3 ML VIAL ONE (10:02)
[2020-04-07 10:11] LABS: INR-International Normal Ratio 1.2; PTT 28.6 sec (22.9-36.1)
[2020-04-07] MEDS ORDERED: Vancomycin 1 GM/200 ML BAG ONE (10:17)
[2020-04-07] MEDS ORDERED: Cefepime 2 GM VIAL ONE (10:17)
[2020-04-07 10:19] LABS: pH, Arterial 7.05 (7.35-7.45)
[2020-04-07 10:20] LABS: Puncture Site L.B.
[2020-04-07 10:22] LABS: Bacteria/HPF None Seen HPF (None Seen); Band 30 % (5-11); Bilirubin Negative (Negative); Blood, Urine 2+ (Negative); Burr Cells SLIGHT = 2-5 cells (100X) (0-1/hpf); Clarity Clear (Clear); Glucose, Urine (Dipstick) Normal (Negative); Ketone, Urine 20 mg/dL (Negative); Leukocyte Negative Leu/uL (Negative); Lymphocytes 8 % (21-51); MDiff Complete? YES; Monocytes 14 % (0-10); Neutrophil 48 % (42-75); Nitrite Negative (Negative); Platelet Morphology Comment Appears Adequate; Protein, Urine (Dipstick) 100 mg/dL (Neg-Trace); RBC/HPF 0-3 HPF (0-3); Specific Gravity, Urine 1.013 (1.002-1.036); Squamous Epithelial 0-3 HPF (0-3); Urobilinogen Normal mg/dL (Less than 2); WBC/HPF 0-3 HPF (0-3)
[2020-04-07 10:34] LABS: ALT (SGPT) 73 U/L (8-55); AST (SGOT) 96 U/L (5-34); Albumin 4.5 g/dL (3.5-5.0); Alkaline Phosphatase 108 U/L (40-110); BUN (Urea Nitrogen) 75 mg/dL (8.4-25.7); Bilirubin, Total 0.3 mg/dL (0.2-1.2); Calc. Creatinine Clearance 0 mL/min (70-130); Calcium 8.5 mg/dL (7.8-10.44); Carbon Dioxide Less than 8 mmol/L (22-29); Chloride 101 mmol/L (98-107); Estimated GFR-MDRD 7; Globulin 4.2 g/dL (2.4-3.5); Glucose 96 mg/dL (70-105); Potassium 8.3 mmol/L (3.5-5.1); Protein, Total 8.7 g/dL (6.0-8.3); Sodium 147 mmol/L (136-145)
[2020-04-07 10:35] LABS: Phosphorus 10.6 mg/dL (2.3-4.7)
[2020-04-07 10:59] LABS: CKMB 6.8 ng/mL (0-6.6)
[2020-04-07] MEDS ORDERED: Sodium Bicarbonate 150 MEQ in Dextrose 5% in Water 1,000 ML IV SCH (11:30)
[2020-04-07] MEDS ORDERED: Ondansetron PF 4 MG/2 ML Vial IVP PRN ×2 (13:09→15:52)
[2020-04-07] MEDS ORDERED: Ondansetron ODT 4 MG TAB SL PRN (13:09)
[2020-04-07 14:05] LABS: Hep C IgG Ab Non-Reactive (NonReactive); Hep C Index 0.06 S/CO (0-0.79)
[2020-04-07 14:06] LABS: HBSAg Index 0.17 S/CO (0-0.99); Hep B Surf Ag Non-Reactive S/CO (NonReactive)
[2020-04-07 14:12] LABS: HBSAB Concentration 447.17 mIU/mL; Hep B Surf AB Reactive (NonReactive)
[2020-04-07 14:29] LABS: Actual Bicarbonate (HCO3a) 6.7 mEq/L (22-28); Base Excess (BEa) -16.6 mEq/L (-2.0 to +3.0); CO2 Tension 14.2 mmHg (35.0-45.0); Calcium, Ionized (arterial) 1.08 mmol/L (1.12-1.30); Carboxyhemoglobin (COHb) 0.2 gm% (0.0-3.0); Hemoglobin (Hb) 15.9 g/dL (14.0-18.0); O2 Tension (PaO2), arterial 59.2 mmHg (80.0-100.0); Potassium - ABG Lab 5.51 mmol/L (3.70-5.30); Puncture Site RB; pH, Arterial 7.29 (7.35-7.45)
[2020-04-07 14:33] LABS: Lactic Acid 13.9 mmol/L (0.5-2.2)
[2020-04-07] MEDS ORDERED: Sodium Bicarb 50 MEQ/50 ML Abboject 8.4% SYRINGE IVP SCH (15:15)
[2020-04-07 15:23] LABS: Hep B Core Total Ab Reactive (NonReactive); Hep B Core Total Index 11.41 S/CO (0-0.79)
[2020-04-07] MEDS ORDERED: Dextrose 5% in Water 1,000 ML IV PRN (15:52)
[2020-04-07] MEDS ORDERED: Ondansetron ODT 4 MG TAB PO PRN (15:52)
[2020-04-07] MEDS ORDERED: Electrolyte Replacement Protoc 1 EACH EACH FS PRN (15:52)
[2020-04-07] MEDS ORDERED: Sodium Chloride 0.9% 1,000 ML IV SCH ×2 (15:52)
[2020-04-07] MEDS ORDERED: Dextrose 50% Abboject 50 ML SYRINGE SLOW IVP PRN (15:52)
[2020-04-07] MEDS ORDERED: Norepinephrine 8 MG/0.9% NS 250 ML IVPB SCH (15:52)
--- NOTE | 2020-04-07 16:02 | CON ---
DATE OF CONSULTATION: 04/07/2020 CONSULTING PHYSICIAN: Dr. Larson. REASON FOR CONSULT: Hyperkalemia, acute kidney injury. REASON FOR ADMISSION: Shortness of breath. HISTORY OF PRESENT ILLNESS: This is a 59-year-old male with history of cerebral palsy, sciatica, and migraine, who came to the hospital with above complaints. He lives in a [place] [facility] and was found to have altered mentation and shortness of breath, was sent to the hospital. He is also COVID-19 positive. He was found to be hyperkalemic and acidotic. Nephrology consulted. The patient not able to give a history. No family members available. The patient is having dyspnea and increased work of breath. PAST MEDICAL HISTORY: Positive for cerebral palsy, scoliosis, sciatica, migraines, hypertension, type 2 diabetes, hyperlipidemia, GERD. PAST SURGICAL HISTORY: Back surgery, shoulder surgery, neck surgery. HOME MEDICATIONS: Reviewed. ALLERGIES: NO KNOWN DRUG ALLERGIES. SOCIAL HISTORY: No smoking, alcohol, or illicit drug abuse lives in a [place] [facility]. FAMILY HISTORY: No history of kidney disease. REVIEW OF SYSTEMS: Could not be obtained. PHYSICAL EXAMINATION: GENERAL: This is a well-built male, in moderate to severe distress. VITAL SIGNS: Temperature 98.4, pulse 93, respiratory rate 16, blood pressure 145/85. HEENT: Atraumatic and normocephalic. Oral mucosa is moist. NECK: Supple. CV: S1 and S2. Rate and rhythm regular. RESPIRATORY: Clear. GI: Abdomen is soft. MUSCULOSKELETAL: No tenderness. No edema. DERMATOLOGIC: No skin rash. NEUROLOGICAL: Altered mentation present. LABORATORY DATA: Hemoglobin 15.2. Potassium 8.3, bicarb is less than 8, phosphorus 10.6. Lactate is 15.1. ASSESSMENT AND PLAN: 1. Acute kidney injury, we will check renal ultrasound, most likely from hemodynamic insult. Plan is to have emergent dialysis. 2. Severe life-threatening hyperkalemia. We will have emergent dialysis. Surgeon already consulted. We will have dialysis once access placed. Dialysis nurse notified. 3. Severe acidosis, life-threatening. 4. Hypernatremia. 5. Severe lactic acidosis. 6. Hyperphosphatemia. 7. History of hypertension. 8. Metabolic acidosis. 9. Altered mentation. Prognosis is very poor. High risk for complications. We will have emergent dialysis. Dialysis nurse notified. Job ID: [id number]
--- NOTE | 2020-04-07 16:12 | OP ---
DATE OF PROCEDURE: 04/07/2020 PREOPERATIVE DIAGNOSES: 1. COVID positive. 2. Renal failure. 3. assisted resident. 4. Cognitive impairment. POSTOPERATIVE DIAGNOSES: 1. COVID positive. 2. Renal failure. 3. assisted resident. 4. Cognitive impairment. PROCEDURE PERFORMED: Right femoral vein Trialysis temporary dialysis catheter. ANESTHESIA: 1% Xylocaine. DESCRIPTION OF PROCEDURE: At the patient's bedside in the emergency room, using proper precautions, groin was clipped of hair, prepared with ChloraPrep and draped in routine fashion. Local anesthetic with 1% Xylocaine was infiltrated in the skin and subcutaneous tissue. Trocar catheter accessed the femoral vein, J-wire threaded, trocar catheter removed. Skin site enlarged sharply. Seldinger technique was used to place a Trialysis catheter, removing the J-wire, securing the catheter with 3-0 nylon suture. Sterile dressings applied. Each port aspirated blood, flushed with heparinized saline solution. The patient tolerated the procedure well. Job ID: [id number]
[2020-04-07] MEDS ORDERED: Vancomycin HCl 250 MG in Sodium Chloride 0.9% 100 ML IVPB SCH (16:45)
[2020-04-07] MEDS ORDERED: HOLD VANCOMYCIN FOR LEVEL >20 FS SCH (16:45)
[2020-04-07] MEDS ORDERED: Vancomycin 1 GM in Premix Bag 1 BAG IVPB SCH (16:45)
[2020-04-07] MEDS ORDERED: Vancomycin HCl 500 MG in Sodium Chloride 0.9% 100 ML IVPB SCH (16:45)
[2020-04-07] MEDS ORDERED: Vancomycin HCl 750 MG in Sodium Chloride 0.9% 250 ML 250 ML IVPB SCH (16:45)
[2020-04-07] MEDS: Azithromycin 500 MG in Sodium Chloride 0.9% 250 ML 250 ML IVPB SCH (17:13)
[2020-04-07] MEDS: methylPREDNISolone Sod Succ 40 MG VIAL IVP SCH ×2 (17:13→23:32)
--- NOTE | 2020-04-07 18:45 | HP ---
PRIMARY CARE PROVIDER: Dr. Oquendo. CHIEF COMPLAINT: Respiratory distress. HISTORY OF PRESENT ILLNESS: This is a 59-year-old male, who resides at [facility] with a history of cerebral palsy, scoliosis and needing 24-hour care, who presented to [facility] Emergency Department with altered mentation and severe respiratory distress. The patient with known COVID-19 positive per ER reports noted with severe labored breathing with respiratory rates in the 30s to 40s requiring 2 L of oxygen per nasal cannula at the time of initial evaluation in the emergency room. The patient was noted tachypneic with metabolic screening showing severe acidosis and bilateral lung infiltrates. Metabolic screening also showed evidence of acute kidney injury, as well as hyperkalemia with potassium levels in the 8 range. The patient received calcium chloride, sodium bicarbonate, albuterol metered-dose inhaler in addition to intravenous normal saline. The patient also received broad-spectrum IV antibiotic therapy after concern for a sepsis picture, receiving Levaquin, vancomycin and cefepime. Consultation was obtained by the General Surgery and Nephrology Service at which point patient underwent a Trialysis catheter placement and initiation of emergent hemodialysis due to severe hyperkalemia. The patient was placed in isolation protocol and given high-flow oxygen via nasal cannula and transferred to the Critical Care Unit for further evaluation. History is obtained after discussions with the ER attending as patient is obtunded on high-flow nasal cannula and unable to provide any coherent history. PAST MEDICAL HISTORY: 1. Cerebral palsy. 2. Diabetes mellitus, type 2. 3. Hypertension. 4. Hyperlipidemia. 5. Chronic back pain. 6. Scoliosis. 7. Peripheral neuropathy. 8. Deconditioning with bed-bound state. PAST SURGICAL HISTORY: 1. Status post 27 spine surgeries in the past. 2. Status post bilateral Achilles heel surgery. 3. Status post cervical spine surgery. CURRENT MEDICATIONS: Based on review of the electronic medical record. 1. Lipitor 80 mg p.o. at bedtime. 2. Flexeril 10 mg p.o. t.i.d. p.r.n. 3. Pepcid 20 mg p.o. b.i.d. 4. Ferrous sulfate 325 mg p.o. b.i.d. 5. Gabapentin 300 mg p.o. daily. 6. Lisinopril 40 mg p.o. q.a.m. 7. Toprol-XL 25 mg p.o. q.a.m. 8. Multivitamin 1 tablet p.o. daily. 9. Protonix 40 mg p.o. daily. ALLERGIES: NO KNOWN DRUG ALLERGIES. FAMILY HISTORY: No inheritable diseases per review of the medical record. SOCIAL HISTORY: Resides at [facility]. Bedbound status. No alcohol, tobacco, or illicit drug use. REVIEW OF SYSTEMS: Unobtainable due to patient's encephalopathy and respiratory failure. PHYSICAL EXAMINATION: VITAL SIGNS: Currently, blood pressure is 95/55, pulse 121, respiratory rate 35, temperature 96.4 degrees Fahrenheit, O2 saturation 96% on 50 L/minute by nasal cannula with FiO2 of 73%. GENERAL APPEARANCE: This is a 59-year-old male with severe respiratory distress, obtunded, unresponsive, lying on the hospital bed in the ICU. HEENT: Pupils are equal, round, reactive to light and accommodation. Extraocular muscles are intact. No scleral icterus. No conjunctival injection. Nares patent. OP is clear. High-flow nasal cannula in place. OP is clear. Oral mucosa dry. NECK: Supple. No cervical adenopathy. No thyromegaly. No carotid bruits. No JVD noted. Accessory muscle use noted. CHEST: Diminished breath sounds in the bases bilaterally with coarse rhonchi. Accessory muscle use of the entire chest wall with agonal respiration. CARDIOVASCULAR: S1, S2 with tachycardia. No murmur, rub, or gallop appreciated. ABDOMEN: Rounded, soft, nontender, and nondistended. Bowel sounds are positive in all 4 quadrants. No palpable mass. No rebound or guarding noted. EXTREMITIES: Warm and dry with poor skin turgor. Pulses diminished at the dorsalis pedis posterior tibial arteries bilaterally. Generalized lower extremity atrophy noted. Capillary refill prolonged greater than 3 seconds. NEUROLOGIC: Obtunded, does not respond to voice or tactile stimulation. Chronic bed-bound status. PERTINENT LABORATORY AND X-RAY FINDINGS: Sodium 147, potassium 8.3, chloride 101, CO2 less than 8, BUN 75, creatinine 9.18, estimated GFR of 7. Lactic acid level ranged between 13.9 to 15.1, phosphorus 10.6, calcium 8.5, magnesium 2.3, AST 96, ALT of 73. Troponin I of 0.035. BNP 57.6. Albumin 4.5. CBC showed a white blood cell count of 14.7, hemoglobin 15, hematocrit 49, platelet count 176 with 79% neutrophils and 30% bandemia. PT 15, INR 1.2, PTT 28.6. ABG at the time of admission 04/07/2020 at 9:45 a.m., pH 7.05, pCO2 of 11, PO2 of 104, bicarb of 3, O2 saturation 94% on 21% FiO2. Urinalysis positive for ketones. Hepatitis B core total antibody reactive. COVID-19 positive per ER report, however, no documentation to review to confirm. Portable chest x-ray dated 04/07/2020, showed right lower lobe infiltrate. EKG dated 04/07/2020, by my interpretation shows accelerated junctional rhythm with heart rates in the 120s. Attenuated R-waves noted in the precordial leads. Normal axis. ASSESSMENT AND PLAN: 1. Severe sepsis with shock. The patient will be admitted to the Critical Care unit. Suspect pulmonary source given patient's history of positive COVID-19. We will continue broad-spectrum IV antibiotic therapy with Zosyn 2.25 g IV q.8 hours with additional azithromycin 500 mg IV daily in addition to vancomycin 1 g IV daily. We will continue sepsis protocol. Intravenous fluids with normal saline at 75 mL/h. The patient received initial fluid bolus per sepsis protocol in the emergency room. Serial lactic acid monitoring. Blood and urine cultures pending. 2. Acute hypoxic respiratory failure. We will continue high-flow nasal cannula currently given patient's history of COVID-19 positivity. Albuterol q.6 hours. 3. Severe hyperkalemia due to acute kidney injury. We will continue emergent hemodialysis in the critical care unit. Serial potassium monitoring. Avoid potassium supplementation. 4. Acute kidney injury with severe metabolic acidosis. Suspect multifactorial process including potential component of sepsis in addition to iatrogenic component. Emergent hemodialysis in progress. Nephrology consult appreciated. 5. Hyperphosphatemia. Continue emergent hemodialysis as outlined previously. Serial phosphorus monitoring. 6. COVID-19 pneumonia. We will obtain confirmation of COVID-19 positive status. Continue Zithromax 500 mg IV daily. Solu-Medrol 40 mg IV q.6 hours. Isolation protocol. 7. Prophylaxis. SCDs while in bed. Pepcid 20 mg IV q.12 hours. Isolation protocol. 8. Code status is full. Surrogate medical decision maker not identified. TIME SPENT: Total critical care time provided by me: 45 minutes. Job ID: [id number]
[2020-04-07 20:15] LABS: Lactic Acid 14.5 mmol/L (0.5-2.2)
[2020-04-07] MEDS ORDERED: Famotidine/PF 20 mg/2ml Vial SLOW IVP SCH (21:00)
[2020-04-07] MEDS: Albuterol 200 PUFF (6.7GM INHALER) INH SCH (21:30)
--- NOTE | 2020-04-07 21:37 | CON ---
DATE OF CONSULTATION: HISTORY OF PRESENT ILLNESS: Yousif Nunn is a 59-year-old gentleman from the longterm [facility], who was brought in to the hospital with respiratory distress. He was found to have multiple electrolyte imbalance including renal failure, elevated potassium. He was tachypneic and tachycardic. ER blood pressure 158/114, respiratory rate 30, pulse 121, and his saturations on 2 L 100%. Initial chest x-ray was normal. He has had a positive coronavirus, unclear how long ago. Extensive history just obtained from his medical records, unable to get any history from the patient. PAST MEDICAL HISTORY: Cerebral palsy, scoliosis, sciatica, migraine headaches, hypertension, dyslipidemia, and reflux. He is a full code. PAST SURGICAL HISTORY: Past surgeries; back surgery, leg surgery, shoulder surgery, and neck surgery. MEDICATIONS: Long-term longterm medicine; 1. Iron tablets. 2. Gabapentin 300. 3. Pepcid. 4. Flexeril. 5. Protonix. 6. Lisinopril. 7. Metoprolol 25. 8. Loratadine. ALLERGIES: NONE. REVIEW OF SYSTEMS: Unobtainable. PHYSICAL EXAMINATION: VITAL SIGNS: In the ICU; he is pulse 131, blood pressure 80/60, and saturations are 95% . He was given 2 amps of bicarb. CHEST: Decreased breath sounds. No wheezing. CARDIAC: Sinus tach. ABDOMEN: Soft. NEUROLOGIC: Cerebral palsy. LABORATORY DATA: A 14,000 white count, H and H 15 and 49, and platelet count is normal. Blood gas; pO2 of 103, pCO2 of 11, and pH of 7.50. Bicarb was 8, BUN and creatinine 75 and 9.8, and lactic acid 13. His x-ray shows a metal plate in his neck, but otherwise no other infiltrates were seen. IMPRESSION AND PLAN: Acute renal failure, cerebral palsy, diabetes, hypertension, neuropathic pain, bed-bound, multiple spinal surgeries, diabetes, and encephalopathy. Emergency dialysis is being initiated. I gave him additional bicarb. Supportive care. Hopefully, we will try and avoid intubation. This is a consultation note, 70 minutes, 50% direct patient care. Job ID: [id number]
[2020-04-07] MEDS: Piperacillin/Tazobactam 2.25 GM in Sodium Chloride 0.9% 100 ML IVPB SCH (21:55)
--- NOTE | 2020-04-07 23:37 | ULT ---
RENAL ULTRASOUND HISTORY: Acute kidney injury rule out obstruction COMPARISON: CT abdomen and pelvis dated November 08, 2019 FINDINGS: Right Kidney: Size: 10.7 x 4.3 x 5.2 cm Abnormality: No hydronephrosis. Right renal cortex measuring 1.3 cm. Left Kidney: Size: 9.7 x 4.6 x 4.4 cm. Abnormality: No hydronephrosis . Left renal cortical thickness was 1.1 cm. Urinary bladder: Decompressed IMPRESSION: No hydronephrosis.
[2020-04-08] MEDS: Albuterol 200 PUFF (6.7GM INHALER) INH SCH ×4 (02:24→18:51)
[2020-04-08 04:02] LABS: Band 23 % (5-11); Hemoglobin 11.7 g/dL (14.0-18.0); Hypochromia SLIGHT = 6-15 cells (100X) (0-5/hpf); Lymphocytes 6 % (21-51); MDiff Complete? YES; Mean Corpuscular HGB CONC 32.7 g/dL (32.0-36.0); Mean Corpuscular Volume 79.6 fL (78.0-98.0); Mean Platelet Volume 11.6 fL (7.4-10.4); Metamyelocyte 1 % (0-0); Monocytes 8 % (0-10); Neutrophil 62 % (42-75); Platelet Count 86 thou/uL (130-400); Platelet Morphology Comment Appears Decreased; RBC Distribution Width 14.4 % (11.5-14.5); Red Blood Cell (RBC) Count 4.49 mill/uL (4.70-6.10); White Blood Cell (WBC) Count 6.4 thou/uL (4.8-10.8)
[2020-04-08 05:12] LABS: ALT (SGPT) 57 U/L (8-55); AST (SGOT) 114 U/L (5-34); Albumin 3.1 g/dL (3.5-5.0); Alkaline Phosphatase 121 U/L (40-110); Anion Gap 39 mmol/L (10-20); BUN (Urea Nitrogen) 49 mg/dL (8.4-25.7); Bilirubin, Total 0.5 mg/dL (0.2-1.2); Calc. Creatinine Clearance 16 mL/min (70-130); Calcium 7.2 mg/dL (7.8-10.44); Carbon Dioxide 10 mmol/L (22-29); Chloride 100 mmol/L (98-107); Estimated GFR-MDRD 15; Globulin 2.4 g/dL (2.4-3.5); Glucose 236 mg/dL (70-105); Magnesium 1.5 mg/dL (1.6-2.6); Potassium 3.7 mmol/L (3.5-5.1); Protein, Total 5.5 g/dL (6.0-8.3); Sodium 145 mmol/L (136-145)
[2020-04-08 05:18] LABS: Phosphorus 4.2 mg/dL (2.3-4.7)
[2020-04-08] MEDS: HumaLOG 300 UNITS/3 ML VIAL SC PRN (05:37)
[2020-04-08] MEDS: Piperacillin/Tazobactam 2.25 GM in Sodium Chloride 0.9% 100 ML IVPB SCH ×3 (05:39→21:53)
[2020-04-08] MEDS: methylPREDNISolone Sod Succ 40 MG VIAL IVP SCH ×4 (05:39→22:14)
[2020-04-08] MEDS ORDERED: Sodium Bicarbonate 150 MEQ in Dextrose 5% in Water 1,000 ML IV SCH (06:00)
[2020-04-08] MEDS ORDERED: Magnesium 2 GM/50 ML 2 GM in Premix Bag 1 BAG IVPB SCH (06:30)
--- NOTE | 2020-04-08 08:29 | RAD ---
PORTABLE CHEST: HISTORY: CCU followup. Pneumonia. COMPARISON: 04/07/2020. FINDINGS: There is confluent infiltrate in the left mid and lower lung which is more prominent today. There is a hazy infiltrate in the right mid and lower lung which is similar in appearance. IMPRESSION: Worsening of the left lower lung infiltrates. POS: AGW
[2020-04-08] MEDS ORDERED: Vancomycin HCl 1 GM in Sodium Chloride 0.9% 250 ML 250 ML IVPB SCH (09:00)
--- NOTE | 2020-04-08 09:36 | PDOC.HOSPP ---
- Subjective Encounter Date: 04/08/20 Encounter Time: 11:00 Subjective: Patient unresponsive, declining overnight and now in significant respiratory distress. Low BP this AM in high 80s systolic. - Objective Vital Signs & Weight: Vital Signs (12 hours) Temp Pulse Ox 04/08/20 08:00 100.5 F H 04/08/20 07:10 95 04/08/20 04:00 98.1 F 04/08/20 01:07 96 04/08/20 00:00 96.8 F L Weight Weight 158 lb 8.198 oz Most Recent Monitor Data Heart Rate from ECG 118 NIBP 93/56 NIBP BP-Mean 68 Respiration from ECG 48 SpO2 94 I&O: 04/07/20 04/08/20 04/09/20 06:59 06:59 06:59 Intake Total 2995 0 Output Total 1260 70 Balance 1735 -70 Result Diagrams: 04/08/20 03:30 04/08/20 03:30 Additional Labs: Accuchecks 04/07/20 04/07/20 04/07/20 22:15 18:33 12:34 POC Glucose 165 H 123 H 236 H 04/07/20 10:10 POC Glucose 92 Hospitalist ROS - Review of Systems ROS unobtainable: due to mental status - Medication Medications: Active Medications Generic Name Dose Route Start Last Admin Trade Name Meenakshi PRN Reason Stop Dose Admin Albuterol Sulfate 1 puff 04/07/20 19:00 04/08/20 02:24 Proventil Hfa INH Not Given [id number] KAYLYN Azithromycin 500 mg/ Sodium 250 mls @ 250 mls/hr 04/07/20 17:00 04/07/20 17: 13 Chloride IVPB 250 mls 1700 KAYLYN Administration Sodium Chloride 1,000 mls @ 0 mls/hr 04/07/20 15:52 04/07/20 17:13 Normal Saline 0.9% IV 1,000 mls .Q0M KAYLYN Administration As Directed Piperacillin Sod/Tazobactam 100 mls @ 200 mls/hr 04/07/20 22:00 04/08/20 05: 39 Sod 2.25 gm/ Sodium Chloride IVPB 100 mls Q8HR KAYLYN Administration Sodium Bicarbonate 150 meq/ 1,150 mls @ 100 mls/hr 04/08/20 06:00 04/08/20 05 :45 Dextrose/Water IV 04/08/20 17:29 1,150 mls NOW KAYLYN Administration Insulin Human Lispro 0 units 04/07/20 15:52 04/08/20 05:37 Humalog SC 3 unit .MILD SLIDING SCALE PRN Administration Mild Correctional Scale Methylprednisolone Sodium Succinate 40 mg 04/07/20 18:00 04/08/20 05:39 Solu-Medrol IVP 40 mg Q6HR KAYLYN Administration - Exam General Appearance: ill appearing General - other findings: non-responsive Heart: RRR, no murmur, no gallops Respiratory - other findings: very tachypneic, coarse breath sounds throughout, lots of upper airway nois Gastrointestinal: soft, non-tender Neurological - other findings: not moving any extremities Psychiatric - other findings: unresponsive Hosp A/P (1) Severe sepsis with septic shock Code(s): A41.9 - SEPSIS, UNSPECIFIED ORGANISM; R65.21 - SEVERE SEPSIS WITH SEPTIC SHOCK Status: Acute (2) Acute respiratory failure with hypoxia Code(s): J96.01 - ACUTE RESPIRATORY FAILURE WITH HYPOXIA Status: Acute (3) Acute kidney injury Code(s): N17.9 - ACUTE KIDNEY FAILURE, UNSPECIFIED Status: Acute (4) Hyperkalemia Code(s): E87.5 - HYPERKALEMIA Status: Resolved (5) Hyperphosphatemia Code(s): E83.39 - OTHER DISORDERS OF PHOSPHORUS METABOLISM Status: Acute - Plan Consults: Palliative Care Continue O2 via Nasal Cannula IV antibiotics Azithromycin, Zosyn, Vancomycin since 04/07/2020 Hemodialysis as per nephrology service Discussed case with Pulmonology. Patient has no chance of recovery if requires intubation or chest compressions. Will have another uninvolved physician come evaluate and make DNAR due to futility. No family contact info that is up to date and [place] [facility] said no visitors for years.
[2020-04-08] MEDS ORDERED: Heparin 10,000 UNITS/ 10 ML VIAL ONE (09:45)
--- NOTE | 2020-04-08 12:55 | PRG ---
DATE OF SERVICE: SUBJECTIVE: Patient on COVID isolation. OBJECTIVE: VITAL SIGNS: Temperature 99.5, pulse 110, respiratory rate 47, blood pressure 98/55. LABORATORY DATA: Potassium 3.7, BUN is 49, creatinine is 4.8. ASSESSMENT AND PLAN: 1. Acute kidney injury on chronic kidney disease stage 3, dialysis dependent, had dialysis yesterday, tolerated well. Plan to have another session of dialysis today. 2. Severe acidosis, we will have dialysis. 3. Hyperkalemia, better. 4. Lactic acidosis. 5. Acute hypoxic respiratory failure. 6. History of hypertension. 7. Metabolic acidosis. 8. Altered mentation. Plan to have dialysis today. Due to hypotension, ultrafiltration will be limited. We will attempt to have dialysis today. Job ID: [id number]
--- NOTE | 2020-04-08 13:35 | PDOC.EVN ---
Event Note - Event Note Event Note: Chart reviewed. Discussed case with physicians involved in treatment. Pt seeen. 59 yo man with cerebral palsy, resident at [facility], admitted for respiratory distress, OMEGA and severe hyperkalemia. Continues to have episodes of respiratory distress. Treating team attempted to reach family. I attempted to reach as well, but no answer. Given pt's current clinical status and comorbidities, it is my opinion that attempts at CPR would be futile. I agree with treating team that pt be made DNAR.
--- NOTE | 2020-04-08 14:08 | PRG ---
DATE OF SERVICE: 04/08/2020 SUBJECTIVE: Mr. Nunn is an unfortunate 59-year-old gentleman from a local halfway. He had a COVID at the outpatient facility and now presents with continued respiratory failure including tachycardia and tachypnea. He is currently on high-flow nasal cannula at 100%. His underlying medical problems include severe cerebral palsy, scoliosis with associated thoracic cage restrictive abnormalities. No available family is known despite multiple attempts to contact the facility. According to them, they have several names of individuals, but no phone numbers and state that no one has been to visit him in many years. The patient is not competent to make his own decision at this time. PHYSICAL EXAMINATION: VITAL SIGNS: Blood pressure 111/68, heart rate 117, respiratory rate 49, saturation 93% on 100% high-flow nasal cannula. GENERAL: The patient is nonverbal. LUNGS: Diffuse rales. HEART: Regular rate and rhythm with resting tachycardia. ABDOMEN: Soft. He is quite cachectic with some contractures. LABORATORY DATA: White count 6400, hemoglobin 11.7, and platelet count 86,000. Differential has included 62 segs and 23 bands. Electrolytes this morning; sodium 145, potassium 3.7, chloride 100, CO2 is 10, BUN 47, and creatinine 4.8. There is mild elevation in liver function studies. Blood cultures positive for coag-negative staph. IMPRESSION: COVID pneumonia, compounded by secondary infection with coag-negative bacteremia. Whether this is true infection or contaminant is unclear. He is noted to have significant metabolic acidosis and has profound hypoxia with widened alveolar to arterial oxygen gradient. This is all superimposed upon his chronic renal insufficiency and cerebral palsy. RECOMMENDATIONS: From my perspective, the patient is not a ventilatory candidate due to his severe COVID pneumonia and hypoxemia compounded by his medical problems. The patient does not have any available family. The patient is incompetent to make any decision and no record of his wishes he has known. I would strongly feel that placing him on the ventilator offers him no chance of recovery and as such, doing so represents futile therapy. I would endorse DNR status by medical futility. In the interim, we continue other therapies as currently underway. Critical care time 35 minute. Job ID: [id number]
[2020-04-08] MEDS ORDERED: Activase 2 MG VIAL CATH SCH (14:45)
[2020-04-08] MEDS ORDERED: Sterile Water 10 ML VIAL IVP SCH (14:45)
[2020-04-08] MEDS: Azithromycin 500 MG in Sodium Chloride 0.9% 250 ML 250 ML IVPB SCH (16:33)
[2020-04-08] MEDS: Famotidine/PF 20 mg/2ml Vial SLOW IVP SCH (20:04)
[2020-04-09] MEDS: Albuterol 200 PUFF (6.7GM INHALER) INH SCH ×4 (00:27→20:06)
[2020-04-09 04:32] LABS: Band 23 % (5-11); Hemoglobin 9.9 g/dL (14.0-18.0); Lymphocytes 8 % (21-51); MDiff Complete? YES; Mean Corpuscular HGB CONC 33.8 g/dL (32.0-36.0); Mean Corpuscular Hemoglobin 26.8 pg (27.0-31.0); Mean Corpuscular Volume 79.5 fL (78.0-98.0); Mean Platelet Volume 13.4 fL (7.4-10.4); Monocytes 7 % (0-10); Neutrophil 62 % (42-75); Platelet Count 85 thou/uL (130-400); Platelet Morphology Comment Appears Decreased; RBC Distribution Width 14.1 % (11.5-14.5); Red Blood Cell (RBC) Count 3.69 mill/uL (4.70-6.10); White Blood Cell (WBC) Count 6.2 thou/uL (4.8-10.8)
[2020-04-09 04:33] LABS: Phosphorus 3.8 mg/dL (2.3-4.7)
[2020-04-09 04:38] LABS: ALT (SGPT) 58 U/L (8-55); AST (SGOT) 121 U/L (5-34); Albumin 2.9 g/dL (3.5-5.0); Alkaline Phosphatase 152 U/L (40-110); Anion Gap 22 mmol/L (10-20); BUN (Urea Nitrogen) 53 mg/dL (8.4-25.7); Bilirubin, Total 1.1 mg/dL (0.2-1.2); Calc. Creatinine Clearance 21 mL/min (70-130); Calcium 6.9 mg/dL (7.8-10.44); Carbon Dioxide 21 mmol/L (22-29); Chloride 98 mmol/L (98-107); Estimated GFR-MDRD 19; Globulin 2.3 g/dL (2.4-3.5); Glucose 177 mg/dL (70-105); Magnesium 1.8 mg/dL (1.6-2.6); Potassium 3.1 mmol/L (3.5-5.1); Protein, Total 5.2 g/dL (6.0-8.3); Sodium 138 mmol/L (136-145)
[2020-04-09] MEDS: methylPREDNISolone Sod Succ 40 MG VIAL IVP SCH ×4 (05:08→23:49)
[2020-04-09] MEDS: Piperacillin/Tazobactam 2.25 GM in Sodium Chloride 0.9% 100 ML IVPB SCH ×3 (05:08→21:06)
--- NOTE | 2020-04-09 08:24 | RAD ---
PORTABLE CHEST: HISTORY: COVID pneumonia. COMPARISON: 04/08/20 FINDINGS: Bilateral hazy infiltrates in the mid and lower lung lemus are again seen and are stable. IMPRESSION: Bilateral infiltrates show no significant change. POS: AGW
[2020-04-09] MEDS ORDERED: Morphine 2 MG/ML SYRINGE SLOW IVP PRN (09:42)
--- NOTE | 2020-04-09 09:55 | PRG ---
DATE OF SERVICE: 04/09/2020 SUBJECTIVE: There has been no improvement in his condition over the course of the night. Saturations remain as low as the mid 70s on high-flow nasal cannula. He was made DNR by a 2-doctor medical futility yesterday and I certainly concur with that assessment. I am going to get some morphine so that palliative medicines are available in the case of the need. While it is difficult to project, it is anticipated he will today. PHYSICAL EXAMINATION: VITAL SIGNS: Current blood pressure 99/57, heart rate 105, saturations reported as 84 on 80% high-flow nasal cannula. GENERAL: He is not respond to any verbal stimuli. LUNGS: Coarse rhonchi, but no wheezing. HEART: Regular rate and rhythm with resting tachycardia. ABDOMEN: Soft. LABORATORY DATA: White count 6200; hemoglobin is 9.9, down from 15.2 on admission. He has microcytic indices. He has 23% bands. Chemistry remarkable for sodium of 138; potassium 3.1; CO2 is 21; BUN 53; creatinine 3.9, improved from 4.8. His liver tests are mildly elevated, but stable. Chest x-ray today shows continuation of bilateral infiltrates consistent with COVID. IMPRESSION: 1. COVID pneumonia. 2. Cerebral palsy. 3. Severe renal insufficiency. 4. Coag-negative bacteremia, unclear whether this is a contaminant or true infection. 5. Anemia. PLAN: The patient is not a candidate for ventilator support given his comorbid medical problems and COVID pneumonia. He has been made DNR by medical futility. I am going to provide morphine for p.r.n. use in the event of respiratory distress. Job ID: [id number]
[2020-04-09] MEDS: Morphine 2 MG/ML VIAL IV PRN ×2 (11:17→23:49)
[2020-04-09] MEDS: HumaLOG 300 UNITS/3 ML VIAL SC PRN ×2 (12:03→17:06)
--- NOTE | 2020-04-09 15:39 | PRG ---
DATE OF SERVICE: 04/09/2020 SUBJECTIVE: The patient is on COVID isolation. OBJECTIVE: VITAL SIGNS: Temperature 98.8, pulse 97, respiratory rate 30, and blood pressure 122/65. LABORATORY DATA: Potassium , BUN is 53, and creatinine is 3.9. ASSESSMENT AND PLAN: 1. Acute kidney injury on chronic kidney disease, stage 3, dialysis dependent. Had two sessions of dialysis and tolerated well. 2. Acidosis, better with dialysis. 3. Hyperkalemia, better. 4. Lactic acidosis. 5. Hypertension. 6. Altered mentation. The patient is not doing well and very critical. No acute indication for dialysis. We will follow. Job ID: [id number]
[2020-04-09] MEDS: Azithromycin 500 MG in Sodium Chloride 0.9% 250 ML 250 ML IVPB SCH (16:52)
[2020-04-09] MEDS: Famotidine/PF 20 mg/2ml Vial SLOW IVP SCH (21:07)
[2020-04-10] MEDS: Albuterol 200 PUFF (6.7GM INHALER) INH SCH ×4 (00:09→19:55)
[2020-04-10] MEDS: HumaLOG 300 UNITS/3 ML VIAL SC PRN ×3 (04:00→17:51)
[2020-04-10 04:32] LABS: Band 11 % (5-11); Hemoglobin 8.5 g/dL (14.0-18.0); Hypochromia SLIGHT = 6-15 cells (100X) (0-5/hpf); Lymphocytes 5 % (21-51); MDiff Complete? YES; Mean Corpuscular HGB CONC 33.8 g/dL (32.0-36.0); Mean Corpuscular Hemoglobin 26.7 pg (27.0-31.0); Mean Corpuscular Volume 79.1 fL (78.0-98.0); Mean Platelet Volume 12.5 fL (7.4-10.4); Monocytes 1 % (0-10); Neutrophil 83 % (42-75); Platelet Count 71 thou/uL (130-400); Platelet Morphology Comment Appears Decreased; Red Blood Cell (RBC) Count 3.19 mill/uL (4.70-6.10); White Blood Cell (WBC) Count 6.5 thou/uL (4.8-10.8)
[2020-04-10 04:49] LABS: ALT (SGPT) 63 U/L (8-55); AST (SGOT) 114 U/L (5-34); Albumin 2.8 g/dL (3.5-5.0); Alkaline Phosphatase 143 U/L (40-110); Anion Gap 19 mmol/L (10-20); BUN (Urea Nitrogen) 99 mg/dL (8.4-25.7); Bilirubin, Total 0.6 mg/dL (0.2-1.2); Calc. Creatinine Clearance 13 mL/min (70-130); Calcium 6.3 mg/dL (7.8-10.44); Carbon Dioxide 26 mmol/L (22-29); Chloride 100 mmol/L (98-107); Estimated GFR-MDRD 11; Glucose 229 mg/dL (70-105); Phosphorus 6.2 mg/dL (2.3-4.7); Potassium 3.5 mmol/L (3.5-5.1); Protein, Total 4.8 g/dL (6.0-8.3); Sodium 141 mmol/L (136-145)
[2020-04-10 05:16] LABS: Magnesium 2.4 mg/dL (1.6-2.6)
[2020-04-10] MEDS: Piperacillin/Tazobactam 2.25 GM in Sodium Chloride 0.9% 100 ML IVPB SCH ×3 (05:33→22:10)
[2020-04-10] MEDS: methylPREDNISolone Sod Succ 40 MG VIAL IVP SCH ×4 (05:33→23:42)
--- NOTE | 2020-04-10 07:59 | RAD ---
EXAM: Single view of the chest HISTORY: Covid pneumonia COMPARISON: 04/09/2020 FINDINGS: Single view of the chest shows a normal sized cardiomediastinal silhouette. Scattered diffu se airspace opacities are stable. Postsurgical changes and degenerative changes are seen in the spine. IMPRESSION: Stable multifocal infiltrates
--- NOTE | 2020-04-10 08:17 | PRG ---
DATE OF SERVICE: 04/09/2020 ADDENDUM: The facility has been contacted by family members of Mr. Nunn. We were initially told the family was distant and no numbers were available. They have asked me about his condition. I have informed them that he has COVID pneumonia superimposed upon his cerebral palsy and other medical problems. They have asked me about treatments being rendered and I have explained to them that he is on empiric antibiotic therapy, steroids, and supplemental oxygen. They have asked about Remdesivir and I have told them that he is not a candidate, given his other comorbid issues and the scarcity of that medication. They have asked if there is a way to petition for him to be on the medicine. I have told them that the allocation is not based on petition. They understand that there is nothing additional to offer except supportive care and they express understanding and place his recovery into God's hand. They will continue to call and stay apprised of his condition. They are aware that he very likely will . Job ID: [id number]
[2020-04-10] MEDS ORDERED: Heparin 10,000 UNITS/ 10 ML VIAL ONE (09:27)
--- NOTE | 2020-04-10 10:19 | PDOC.HOSPP ---
- Subjective Encounter Date: 04/10/20 Encounter Time: 10:40 non-verbal Subjective: Patient improved overnight. Breathing easier. O2 sats improved. - Objective Vital Signs & Weight: Vital Signs (12 hours) Temp Pulse Ox 04/10/20 08:00 97 F L 98 04/10/20 04:00 98.7 F 04/10/20 00:00 98.5 F Weight Admit Weight 149 lb 7.574 oz Weight 161 lb 2.526 oz Most Recent Monitor Data Heart Rate from ECG 83 NIBP 99/61 NIBP BP-Mean 73 Respiration from ECG 26 SpO2 93 I&O: 04/09/20 04/10/20 04/11/20 06:59 06:59 06:59 Intake Total 2002 1133 Output Total 523 157 10 Balance 1480 977 -10 Result Diagrams: 04/10/20 03:55 04/10/20 03:55 Additional Labs: Accuchecks 04/10/20 04/09/20 04/09/20 04:03 21:17 17:08 POC Glucose 222 H 196 H 188 H 04/09/20 11:38 POC Glucose 221 H Hospitalist ROS - Review of Systems ROS unobtainable: due to mental status - Medication Medications: Active Medications Generic Name Dose Route Start Last Admin Trade Name Freq PRN Reason Stop Dose Admin Albuterol Sulfate 1 puff 04/07/20 19:00 04/10/20 00:09 Proventil Hfa INH Not Given [id number] KAYLYN Famotidine 20 mg 04/08/20 21:00 04/09/20 21:07 Pepcid SLOW IVP 20 mg 2100 KAYLYN Administration Azithromycin 500 mg/ Sodium 250 mls @ 250 mls/hr 04/07/20 17:00 04/09/20 16: 52 Chloride IVPB 250 mls 1700 KAYLYN Administration Sodium Chloride 1,000 mls @ 0 mls/hr 04/07/20 15:52 04/07/20 17:13 Normal Saline 0.9% IV 1,000 mls .Q0M KAYLYN Administration As Directed Piperacillin Sod/Tazobactam 100 mls @ 200 mls/hr 04/07/20 22:00 04/10/20 05: 33 Sod 2.25 gm/ Sodium Chloride IVPB 100 mls Q8HR KAYLYN Administration Insulin Human Lispro 0 units 04/07/20 15:52 04/10/20 09:18 Humalog SC 3 unit .MILD SLIDING SCALE PRN Administration Mild Correctional Scale Methylprednisolone Sodium Succinate 40 mg 04/07/20 18:00 04/10/20 05:33 Solu-Medrol IVP 40 mg Q6HR KAYLYN Administration Morphine Sulfate 2 mg 04/09/20 09:58 04/09/20 23:49 Morphine Sulfate IV 2 mg Q30MIN PRN Administration SOB - Exam General Appearance: ill appearing General - other findings: makes noises to stimulation but not following commands ENT: moist mucosa Heart: RRR, no murmur, no gallops, no rubs Respiratory: no tachypnea Respiratory - other findings: coarse breath sounds bilaterally, decent air movement, on high flow O2 Gastrointestinal: soft, non-tender, non-distended, normal bowel sounds Psychiatric: somnolent Hosp A/P (1) Severe sepsis with septic shock Code(s): A41.9 - SEPSIS, UNSPECIFIED ORGANISM; R65.21 - SEVERE SEPSIS WITH SEPTIC SHOCK Status: Acute (2) Acute respiratory failure with hypoxia Code(s): J96.01 - ACUTE RESPIRATORY FAILURE WITH HYPOXIA Status: Acute (3) Acute kidney injury Code(s): N17.9 - ACUTE KIDNEY FAILURE, UNSPECIFIED Status: Acute (4) Hyperkalemia Code(s): E87.5 - HYPERKALEMIA Status: Resolved (5) Hyperphosphatemia Code(s): E83.39 - OTHER DISORDERS OF PHOSPHORUS METABOLISM Status: Acute - Plan Continue O2 via Nasal Cannula IV antibiotics Azithromycin, Zosyn, Vancomycin since 04/07/2020 Hemodialysis as per nephrology service Patient improving somewhat, though still with grave prognosis Brother finally reached and he discussed patient's disease and prognosis with Dr. Self over the weekend. Patient is DNAR.
--- NOTE | 2020-04-10 14:13 | PRG ---
DATE OF SERVICE: 04/10/2020 SUBJECTIVE: A 59-year-old gentleman being seen for acute kidney injury, dialysis dependent. The patient denies any complaints. OBJECTIVE: GENERAL: The patient is resting. VITAL SIGNS: Afebrile. Pulse 75, breathing at 16, blood pressure . HEENT: Head normocephalic and atraumatic. Eyes intact, no ulcers. Nose intact, no ulcers. Ears intact, no ulcers. NECK: Supple. No JVD. CHEST: Symmetrical and clear. CARDIOVASCULAR: Shows S1 and S2, no rub, no murmur. GASTROINTESTINAL: Abdomen is soft, bowel sounds positive. EXTREMITIES: Show no edema or ulcers. SKIN: Shows no rash or petechiae. MUSCULOSKELETAL: Shows no joint swelling or stiffness. GENITOURINARY: Shows no Dorantes or CVA tenderness. NEUROLOGIC: Motor intact. Cranial nerves intact. LABORATORY DATA: Reviewed. ASSESSMENT AND PLAN: 1. Chronic kidney disease stage 5, dialysis dependent. Creatinine is decreased. We will plan dialysis. 2. , stable. 3. Anemia, stable. 4. Medication based on GFR appropriate. Job ID: [id number]
[2020-04-10 18:31] LABS: Vancomycin, Random 6.1 ug/mL (See Comment)
[2020-04-10] MEDS ORDERED: Azithromycin 500 MG in Sodium Chloride 0.9% 250 ML 250 ML IVPB SCH (21:00)
[2020-04-10] MEDS: Famotidine/PF 20 mg/2ml Vial SLOW IVP SCH (21:10)
[2020-04-11] MEDS: HumaLOG 300 UNITS/3 ML VIAL SC PRN ×3 (00:56→20:20)
[2020-04-11] MEDS: Morphine 2 MG/ML VIAL IV PRN (00:59)
[2020-04-11] MEDS: Albuterol 200 PUFF (6.7GM INHALER) INH SCH ×4 (01:00→19:00)
[2020-04-11] MEDS: Piperacillin/Tazobactam 2.25 GM in Sodium Chloride 0.9% 100 ML IVPB SCH (05:23)
[2020-04-11] MEDS: methylPREDNISolone Sod Succ 40 MG VIAL IVP SCH (05:23)
--- NOTE | 2020-04-11 08:57 | PDOC.HOSPP ---
- Subjective Encounter Date: 04/11/20 Encounter Time: 11:00 Subjective: Patient a bit better today with improved O2 sats and normal blood pressure. Still not responsive. - Objective Vital Signs & Weight: Vital Signs (12 hours) Temp Pulse Ox 04/11/20 04:20 96.5 F L 04/11/20 02:56 97 04/11/20 00:30 97.5 F L Weight Admit Weight 149 lb 7.574 oz Weight 154 lb 8.705 oz Most Recent Monitor Data Heart Rate from ECG 74 NIBP 118/70 NIBP BP-Mean 86 Respiration from ECG 27 SpO2 96 I&O: 04/10/20 04/11/20 04/12/20 06:59 06:59 06:59 Intake Total 1134 988 Output Total 157 170 Balance 977 818 Result Diagrams: 04/10/20 03:55 04/10/20 03:55 Additional Labs: Accuchecks 04/11/20 04/11/20 04/10/20 05:30 00:55 17:55 POC Glucose 153 H 184 H 213 H 04/10/20 09:21 POC Glucose 201 H Hospitalist ROS - Review of Systems ROS unobtainable: due to mental status - Medication Medications: Active Medications Generic Name Dose Route Start Last Admin Trade Name Freq PRN Reason Stop Dose Admin Albuterol Sulfate 1 puff 04/07/20 19:00 04/11/20 06:50 Proventil Hfa INH Not Given [id number] KAYLYN Famotidine 20 mg 04/08/20 21:00 04/10/20 21:10 Pepcid SLOW IVP 20 mg 2100 KAYLYN Administration Sodium Chloride 1,000 mls @ 0 mls/hr 04/07/20 15:52 04/07/20 17:13 Normal Saline 0.9% IV 1,000 mls .Q0M KAYLYN Administration As Directed Piperacillin Sod/Tazobactam 100 mls @ 200 mls/hr 04/07/20 22:00 04/11/20 05: 23 Sod 2.25 gm/ Sodium Chloride IVPB 100 mls Q8HR KAYLYN Administration Vancomycin HCl 750 mg/ Sodium 250 mls @ 250 mls/hr 04/07/20 16:45 04/11/20 02 :45 Chloride IVPB 250 mls WILLCALL KAYLYN Administration Azithromycin 500 mg/ Sodium 250 mls @ 250 mls/hr 04/10/20 21:00 04/10/20 21: 10 Chloride IVPB 250 mls 2100 KAYLYN Administration Insulin Human Lispro 0 units 04/07/20 15:52 04/11/20 00:56 Humalog SC 2 unit .MILD SLIDING SCALE PRN Administration Mild Correctional Scale Methylprednisolone Sodium Succinate 40 mg 04/07/20 18:00 04/11/20 05:23 Solu-Medrol IVP 40 mg Q6HR KAYLYN Administration Morphine Sulfate 2 mg 04/09/20 09:58 04/11/20 00:59 Morphine Sulfate IV 2 mg Q30MIN PRN Administration SOB - Exam General Appearance: NAD General - other findings: no responsive Heart: RRR, no murmur, no gallops, no rubs Respiratory: no wheezes, no rales, no ronchi, no tachypnea Respiratory - other findings: decent air movement, no resp distress on high flow O2 Gastrointestinal: soft, non-tender, non-distended, normal bowel sounds Neurological: no focal deficits Psychiatric - other findings: not responsive to stimulation Hosp A/P (1) Severe sepsis with septic shock Code(s): A41.9 - SEPSIS, UNSPECIFIED ORGANISM; R65.21 - SEVERE SEPSIS WITH SEPTIC SHOCK Status: Acute (2) Acute respiratory failure with hypoxia Code(s): J96.01 - ACUTE RESPIRATORY FAILURE WITH HYPOXIA Status: Acute (3) Acute kidney injury Code(s): N17.9 - ACUTE KIDNEY FAILURE, UNSPECIFIED Status: Acute (4) Hyperkalemia Code(s): E87.5 - HYPERKALEMIA Status: Resolved (5) Hyperphosphatemia Code(s): E83.39 - OTHER DISORDERS OF PHOSPHORUS METABOLISM Status: Acute (6) Anemia Code(s): D64.9 - ANEMIA, UNSPECIFIED Status: Acute - Plan Continue O2 via Nasal Cannula IV antibiotics Azithromycin, Zosyn, Vancomycin since 04/07/2020 Hemodialysis as per nephrology service Patient improving somewhat, though still with grave prognosis Brother finally reached and he discussed patient's disease and prognosis with Dr. Self over the weekend. Patient is DNAR. Drop in H/H since admission, possible dilutional but will recheck and get stool hemoccult as well Place a dobhoff and start tube feeds
--- NOTE | 2020-04-11 10:49 | PRG ---
DATE OF SERVICE: 04/11/2020 OBJECTIVE: VITAL SIGNS: This morning, he is sitting on high-flow with saturations like 93%, pulse 76, blood pressure , temperature 96. CHEST: Decreased breath sounds. No wheezing. CARDIAC: Normal S1, S2. No gallops. ABDOMEN: No masses. ASSESSMENT: Chronic renal failure, positive pneumonia, respiratory failure, baseline cerebral palsy, chronic pain syndrome. PLAN: Switch him to oral antibiotics, steroids. We will try high-flow, eventually transfer back to the senior care if he can tolerate low-flow O2. Job ID: [id number]
--- NOTE | 2020-04-11 14:48 | PDOC.FMACP ---
Advance Care Planning - Problem (1) COVID-19 Status: Acute Code(s): U07.1 - COVID-19 (2) Acute respiratory failure with hypoxia Status: Acute Code(s): J96.01 - ACUTE RESPIRATORY FAILURE WITH HYPOXIA (3) Palliative care encounter Status: Acute Code(s): Z51.5 - ENCOUNTER FOR PALLIATIVE CARE - Note Participants: family, surrogate decision-maker, palliative care Summary: Palliative Care introduced Advanced Care Planning to patient sibling, allowed opportunity to decline. His brother received education in relation to patient status. Agreed to continue with DNAR status. The diagnosis, prognosis and goals of care were discussed. Appropriate forms and documentation to accomplish the goals of care were discussed. All questions were answered. The Palliative Care Team will be engaged to assist with completion of any additional forms that may outstanding. Communicated with Dr Krishnamurthy. Please also refer to Lanny Krueger RNfield service poultry technician notes in note section. Time Spent (mins): 30
--- NOTE | 2020-04-11 15:05 | PRG ---
DATE OF SERVICE: 04/11/2020 SUBJECTIVE: A 59-year-old gentleman, being seen for acute kidney injury. The patient is dialysis dependent. The patient is anuric. OBJECTIVE: GENERAL: The patient is resting. VITAL SIGNS: Afebrile, pulse 73, breathing at 16, blood pressure 152/91. HEENT: Head normocephalic and atraumatic. Eyes intact, no ulcers. Nose intact, no ulcers. Ears intact, no ulcers. NECK: Supple. No JVD. CHEST: Symmetrical and clear. CARDIOVASCULAR: Shows S1 and S2, no rub, no murmur. GASTROINTESTINAL: Abdomen is soft, bowel sounds positive. EXTREMITIES: Show no edema or ulcers. SKIN: Shows no rash or petechiae. MUSCULOSKELETAL: Shows no joint swelling or stiffness. GENITOURINARY: Shows no Dorantes or CVA tenderness. NEUROLOGIC: Motor intact. Cranial nerves intact. LABORATORY DATA: Show hemoglobin 8.5. ASSESSMENT AND RECOMMENDATIONS: 1. Stage 6 chronic kidney disease. No labs were done today. We will order labs today. 2. Hypertension, stable. 3. Anemia, stable. 4. Medication based on GFR, appropriate. We will plan dialysis per schedule. Job ID: [id number]
--- NOTE | 2020-04-11 18:19 | RAD ---
XR Abdomen 1 View/KUB History: Dobbhoff tube placement Comparison: None. Findings: Weighted feeding tube tip at the gastric fundus. A right femoral central venous catheter ti p projects over the right L2 vertebral body. There are airspace opacities in both lower lobes. Impression: 1. Weighted feeding tube tip at the gastric fundus. 2. Right femoral central venous catheter tip projects over the right L2 vertebral body.
[2020-04-11] MEDS: Famotidine/PF 20 mg/2ml Vial SLOW IVP SCH (20:18)
[2020-04-11] MEDS: Doxycycline 100 MG CAP PO SCH (20:18)
[2020-04-12] MEDS: Albuterol 200 PUFF (6.7GM INHALER) INH SCH ×4 (01:33→18:11)
[2020-04-12] MEDS: HumaLOG 300 UNITS/3 ML VIAL SC PRN ×3 (03:32→23:50)
[2020-04-12 03:42] LABS: #Lymphocytes 0.4 thou/uL (1.20-3.40); #Monocytes 1.1 thou/uL (0.11-0.59); #Neutrophils 9.8 thou/uL (1.40-6.50); %Basophils 0.4 % (0.0-1.0); %Eosinophils 0.1 % (0.0-10.0); %Lymphocytes 3.9 % (21.0-51.0); %Monocytes 9.6 % (0.0-10.0); %Neutrophils 86.1 % (42.0-75.0); Hemoglobin 8.9 g/dL (14.0-18.0); Mean Corpuscular Volume 78.9 fL (78.0-98.0); Mean Platelet Volume 11.3 fL (7.4-10.4); Platelet Count 110 thou/uL (130-400); Red Blood Cell (RBC) Count 3.43 mill/uL (4.70-6.10); White Blood Cell (WBC) Count 11.4 thou/uL (4.8-10.8)
[2020-04-12 03:59] LABS: Anion Gap 18 mmol/L (10-20); BUN (Urea Nitrogen) 97 mg/dL (8.4-25.7); Calc. Creatinine Clearance 12 mL/min (70-130); Calcium 6.5 mg/dL (7.8-10.44); Carbon Dioxide 24 mmol/L (22-29); Chloride 101 mmol/L (98-107); Estimated GFR-MDRD 11; Glucose 250 mg/dL (70-105); Potassium 3.7 mmol/L (3.5-5.1); Sodium 139 mmol/L (136-145)
[2020-04-12 08:21] LABS: Vancomycin, Random 9.1 ug/mL (See Comment)
[2020-04-12] MEDS: Doxycycline 100 MG CAP PO SCH ×2 (10:07→19:51)
[2020-04-12] MEDS: predniSONE 20 MG TAB PO SCH (10:07)
[2020-04-12] MEDS: Insulin Glargine 6 UNITS in Pre-Filled Syringe 1 EACH SC SCH (10:07)
--- NOTE | 2020-04-12 10:37 | PRG ---
DATE OF SERVICE: 04/12/2020 SUBJECTIVE: A 59-year-old gentleman being seen for end-stage renal disease. The patient denied nausea, vomiting, or chest pain. OBJECTIVE: GENERAL: On exam, the patient is awake and alert. VITAL SIGNS: Afebrile, pulse 93, breathing at 16, and blood pressure 95/69. HEENT: Head normocephalic and atraumatic. Eyes intact, no ulcers. Nose intact, no ulcers. Ears intact, no ulcers. NECK: Supple. No JVD. CHEST: Symmetrical and clear. CARDIOVASCULAR: Shows S1 and S2, no rub, no murmur. GASTROINTESTINAL: Abdomen is soft, bowel sounds positive. EXTREMITIES: Show no edema or ulcers. SKIN: Shows no rash or petechiae. MUSCULOSKELETAL: Shows no joint swelling or stiffness. GENITOURINARY: Shows no Dorantes or CVA tenderness. NEUROLOGIC: Motor intact. Cranial nerves intact. LABORATORY DATA: Reviewed. ASSESSMENT AND PLAN: 1. Stage 6 chronic kidney disease, stable. 2. Hypertension, stable. 3. Anemia, stable. We will continue dialysis. The patient remains oliguric. Job ID: [id number]
--- NOTE | 2020-04-12 11:08 | PRG ---
DATE OF SERVICE: SUBJECTIVE: Yousif Nunn is a 59-year-old gentleman, cerebral palsy. OBJECTIVE: VITAL SIGNS: Sats on high-flow are still 96, blood pressure 95/59, respiratory rate 18, pulse 80, temperature 96. CHEST: No wheezing. No crackles. CARDIAC: Normal S1, S2. No gallops. ABDOMEN: No masses. LABORATORY DATA: Remarkable for creatinine of 6.4, BUN 97. ASSESSMENT: Respiratory failure; cerebral palsy; positive virus, coronavirus. PLAN: Try and downsize his O2 as possible probably transferred back to the halfway. Otherwise, he is still on prednisone, doxycycline supportive care. Job ID: [id number]
--- NOTE | 2020-04-12 16:06 | PDOC.HOSPP ---
- Subjective Encounter Date: 04/12/20 Encounter Time: 14:00 Subjective: pt up in bed nonverbal. - Objective Vital Signs & Weight: Vital Signs (12 hours) Temp Pulse Ox 04/12/20 11:20 97 04/12/20 09:00 98.1 F 04/12/20 07:38 96 Weight Admit Weight 149 lb 7.574 oz Weight 156 lb 1.396 oz Most Recent Monitor Data Heart Rate from ECG 83 NIBP 107/62 NIBP BP-Mean 77 Respiration from ECG 22 SpO2 100 I&O: 04/11/20 04/12/20 04/13/20 06:59 06:59 06:59 Intake Total 988 396 30 Output Total 170 110 Balance 818 286 30 Result Diagrams: 04/12/20 03:25 04/12/20 03:25 Additional Labs: Accuchecks 04/12/20 04/12/20 04/11/20 10:22 03:31 20:24 POC Glucose 231 H 249 H 229 H Hospitalist ROS - Review of Systems Other: unable to obtain - Medication Medications: Active Medications Generic Name Dose Route Start Last Admin Trade Name Freq PRN Reason Stop Dose Admin Albuterol Sulfate 1 puff 04/07/20 19:00 04/12/20 14:06 Proventil Hfa INH Not Given [id number] KAYLYN Doxycycline Hyclate 100 mg 04/11/20 21:00 04/12/20 10:07 Vibramycin PO 04/21/20 21:01 100 mg BID KAYLYN Administration Famotidine 20 mg 04/08/20 21:00 04/11/20 20:18 Pepcid SLOW IVP 20 mg 2100 KAYLYN Administration Sodium Chloride 1,000 mls @ 0 mls/hr 04/07/20 15:52 04/07/20 17:13 Normal Saline 0.9% IV 1,000 mls .Q0M KAYLYN Administration As Directed Insulin Glargine 6 units/ 0.06 mls @ 0 mls/hr 04/12/20 09:00 04/12/20 10:07 Miscellaneous Medication SC 0.06 mls QAM KAYLYN Administration Insulin Human Lispro 0 units 04/07/20 15:52 04/12/20 03:32 Humalog SC 3 unit .MILD SLIDING SCALE PRN Administration Mild Correctional Scale Prednisone 20 mg 04/12/20 08:00 04/12/20 10:07 Prednisone PO 20 mg QA-[facility] Administration - Exam Neck: negative: supple, symmetric, no JVD, no thyromegaly, no lymphadenopathy, no carotid bruit, JVD Heart: negative: RRR, no murmur, no gallops, no rubs, normal peripheral pulses, irregular, diminshed peripheral pulses, murmur present, II/IV, III/IV Respiratory: rales Gastrointestinal: negative: soft, non-tender, non-distended, normal bowel sounds , no palpable masses, no hepatomegaly, no splenomegaly, no bruit, no guarding, no rigidity, tender to palpation, distended, diminished bowl sounds, voluntary guarding Neurological - other findings: pt obtunded Hosp A/P (1) Acute respiratory failure with hypoxia Code(s): J96.01 - ACUTE RESPIRATORY FAILURE WITH HYPOXIA Status: Acute (2) COVID-19 Code(s): U07.1 - COVID-19 Status: Acute (3) Cerebral palsy Code(s): G80.9 - CEREBRAL PALSY, UNSPECIFIED Status: Chronic Qualifiers: Cerebral palsy type: unspecified type Qualified Code(s): G80.9 - Cerebral palsy, unspecified (4) GERD (gastroesophageal reflux disease) Code(s): K21.9 - GASTRO-ESOPHAGEAL REFLUX DISEASE WITHOUT ESOPHAGITIS Status: Chronic (5) HTN (hypertension) Code(s): I10 - ESSENTIAL (PRIMARY) HYPERTENSION Status: Chronic Qualifiers: Hypertension type: essential hypertension Qualified Code(s): I10 - Essential (primary) hypertension (6) Severe sepsis with septic shock Code(s): A41.9 - SEPSIS, UNSPECIFIED ORGANISM; R65.21 - SEVERE SEPSIS WITH SEPTIC SHOCK Status: Acute - Plan pt overall appear worse. pt on prednisone. will continue abx. Not sure if he will recover from this. Continue peg tube feedings. pt now on face mask.
[2020-04-12] MEDS: Famotidine/PF 20 mg/2ml Vial SLOW IVP SCH (19:51)
[2020-04-13] MEDS: Albuterol 200 PUFF (6.7GM INHALER) INH SCH ×4 (01:46→18:37)
[2020-04-13] MEDS: HumaLOG 300 UNITS/3 ML VIAL SC PRN ×3 (06:10→21:02)
[2020-04-13] MEDS: Doxycycline 100 MG CAP PO SCH ×2 (09:55→20:54)
[2020-04-13] MEDS: Insulin Glargine 6 UNITS in Pre-Filled Syringe 1 EACH SC SCH (09:55)
[2020-04-13] MEDS: predniSONE 20 MG TAB PO SCH (09:55)
--- NOTE | 2020-04-13 10:40 | PRG ---
DATE OF SERVICE: 04/13/2020 SUBJECTIVE: Yousif Nunn is a 59-year-old, cerebral palsy patient. OBJECTIVE: VITAL SIGNS: Temperature 98, blood pressure 96/48, saturations 98%. CHEST: Decreased breath sounds. No wheezing. CARDIAC: Normal S1, S2. No gallops. ABDOMEN: No masses. ASSESSMENT: Renal failure, diabetes, respiratory failure, coronavirus positive pneumonia. PLAN: Continue present treatment, dialysis per Nephrology. Disposition; back to [facility] when stable. Job ID: [id number]
--- NOTE | 2020-04-13 11:03 | PRG ---
DATE OF SERVICE: 04/13/2020 SUBJECTIVE: A 59-year-old gentleman, being seen for acute kidney injury, which is dialysis dependent. The patient is nonverbal. PHYSICAL EXAMINATION: GENERAL: The patient is resting. VITAL SIGNS: Afebrile, pulse 75, breathing at 16, blood pressure 96/59. HEENT: Head normocephalic and atraumatic. Eyes intact, no ulcers. Nose intact, no ulcers. Ears intact, no ulcers. NECK: Supple. No JVD. CHEST: Symmetrical and clear. CARDIOVASCULAR: Shows S1 and S2, no rub, no murmur. GASTROINTESTINAL: Abdomen is soft, bowel sounds positive. EXTREMITIES: Show no edema or ulcers. SKIN: Shows no rash or petechiae. MUSCULOSKELETAL: Shows no joint swelling or stiffness. GENITOURINARY: Shows no Dorantes or CVA tenderness. NEUROLOGIC: Motor intact. Cranial nerves intact. LABORATORY DATA: Reviewed. ASSESSMENT AND PLAN: Chronic kidney disease stage 5 with acute kidney injury. Consider dialysis if clinically indicated. The patient has a failed access, so we will get a new access. I will order labs for today. Job ID: [id number]
[2020-04-13 12:48] LABS: Anion Gap 18 mmol/L (10-20); BUN (Urea Nitrogen) 115 mg/dL (8.4-25.7); Calc. Creatinine Clearance 11 mL/min (70-130); Calcium 6.7 mg/dL (7.8-10.44); Carbon Dioxide 23 mmol/L (22-29); Chloride 100 mmol/L (98-107); Estimated GFR-MDRD 10; Glucose 360 mg/dL (70-105); Potassium 3.9 mmol/L (3.5-5.1); Sodium 137 mmol/L (136-145)
[2020-04-13] MEDS ORDERED: HumuLIN 70/30 (300 UNITS/3 ML VIAL) SC SCH (19:45)
[2020-04-14] MEDS: HumaLOG 300 UNITS/3 ML VIAL SC PRN ×3 (00:58→18:16)
[2020-04-14] MEDS: Albuterol 200 PUFF (6.7GM INHALER) INH SCH ×4 (02:43→20:55)
[2020-04-14] MEDS ORDERED: Insulin Glargine 10 UNITS in Pre-Filled Syringe 1 EACH SC SCH (09:00)
[2020-04-14] MEDS: predniSONE 20 MG TAB PO SCH (09:55)
[2020-04-14] MEDS: HumuLIN 70/30 (300 UNITS/3 ML VIAL) SC SCH ×4 (09:55→21:38)
[2020-04-14] MEDS: Doxycycline 100 MG CAP PO SCH ×2 (09:55→21:35)
--- NOTE | 2020-04-14 10:13 | PRG ---
DATE OF SERVICE: 04/14/2020 SUBJECTIVE: The patient with cerebral palsy, renal failure. He is down to nasal O2. OBJECTIVE: VITAL SIGNS: Sats are better at 96%, pulse 90, blood pressure 106/64. CHEST: No wheezing. No crackles. CARDIAC: Normal S1, S2. ABDOMEN: No masses. LABORATORY DATA: Creatinine 7.1. ASSESSMENT: Acute renal failure, baseline cerebral palsy, respiratory failure, much improved. PLAN: He is still on antibiotics, low-dose prednisone for his coronavirus positive pneumonia. Hopefully, once they have addressed his renal status, to be discharged back to the group home. Job ID: [id number]
--- NOTE | 2020-04-14 11:52 | PRG ---
DATE OF SERVICE: 04/14/2020 SUBJECTIVE: A 59-year-old gentleman, being seen for acute kidney injury. The patient denies any nausea, vomiting, or chest pain. PHYSICAL EXAMINATION: GENERAL: The patient is awake and alert. VITAL SIGNS: Afebrile, pulse 75, breathing at 16, blood pressure 108/61. HEENT: Head normocephalic and atraumatic. Eyes intact, no ulcers. Nose intact, no ulcers. Ears intact, no ulcers. NECK: Supple. No JVD. CHEST: Symmetrical and clear. CARDIOVASCULAR: Shows S1 and S2, no rub, no murmur. GASTROINTESTINAL: Abdomen is soft, bowel sounds positive. EXTREMITIES: Show no edema or ulcers. SKIN: Shows no rash or petechiae. MUSCULOSKELETAL: Shows no joint swelling or stiffness. GENITOURINARY: Shows no Dorantes or CVA tenderness. NEUROLOGIC: Motor intact. Cranial nerves intact. LABORATORY DATA: Hemoglobin 9. Creatinine is pending. ASSESSMENT AND PLAN: 1. Chronic kidney disease, stage 5. Recheck labs. 2. Hypotension. Start IV fluids. 3. Anemia, stable. Medication based on GFR appropriate. No indication for dialysis. Job ID: [id number]
[2020-04-14 13:35] LABS: Albumin 2.7 g/dL (3.5-5.0); Anion Gap 20 mmol/L (10-20); Calc. Creatinine Clearance 10 mL/min (70-130); Calcium 7.2 mg/dL (7.8-10.44); Carbon Dioxide 25 mmol/L (22-29); Chloride 100 mmol/L (98-107); Estimated GFR-MDRD 9; Glucose 330 mg/dL (70-105); Potassium 3.6 mmol/L (3.5-5.1); Sodium 141 mmol/L (136-145)
[2020-04-14] MEDS: Sodium Chloride 0.9% 1,000 ML IV SCH (13:43)
[2020-04-14 13:47] LABS: BUN (Urea Nitrogen) 121 mg/dL (8.4-25.7)
--- NOTE | 2020-04-14 14:24 | OP ---
DATE OF PROCEDURE: 04/13/2020 PREOPERATIVE DIAGNOSES: COVID illness, renal failure, dysfunctional temporary right groin femoral vein dialysis catheter. POSTOPERATIVE DIAGNOSIS: COVID illness, renal failure, dysfunctional temporary right groin femoral vein dialysis catheter. PROCEDURE PERFORMED: Left femoral vein non-cuffed dialysis catheter, Trialysis. ANESTHESIA: 1% Xylocaine. DESCRIPTION OF PROCEDURE: With the patient at bedside, left groin was prepared with ChloraPrep and draped in routine fashion. Local anesthetic was infiltrated in the skin and subcutaneous tissue. Left femoral vein cannulated with a trocar catheter, J-wire threaded, trocar catheter removed. Skin site enlarged sharply. Small and medium size dilators placed with J-wire into the femoral vein and removed. Distal port of the Trialysis catheter placed over the J-wire in the femoral vein, secured with 3-0 nylon suture. Sterile dressings applied, after J-wire removed, each port aspirated of blood, flushed with heparinized saline solution. The patient tolerated the procedure well. Job ID: [id number]
--- NOTE | 2020-04-14 19:46 | PDOC.HOSPP ---
- Subjective Encounter Date: 04/13/20 Encounter Time: 16:00 Subjective: pt more awake and follows. - Objective Vital Signs & Weight: Vital Signs (12 hours) Temp Pulse Ox 04/14/20 10:55 98.4 F 04/14/20 08:00 97 Weight Admit Weight 149 lb 7.574 oz Weight 156 lb 8.451 oz Most Recent Monitor Data Heart Rate from ECG 89 NIBP 120/73 NIBP BP-Mean 88 Respiration from ECG 21 SpO2 91 I&O: 04/13/20 04/14/20 04/15/20 06:59 06:59 06:59 Intake Total 640 720 960 Output Total 315 250 200 Balance 325 470 760 Result Diagrams: 04/13/20 12:21 04/14/20 13:00 Additional Labs: Accuchecks 04/14/20 04/14/20 04/14/20 16:41 12:52 06:47 POC Glucose 406 H 288 H 261 H 04/14/20 04/13/20 01:01 21:06 POC Glucose 343 H 376 H Hospitalist ROS - Review of Systems Other: unable to obtain - Medication Medications: Active Medications Generic Name Dose Route Start Last Admin Trade Name Freq PRN Reason Stop Dose Admin Albuterol Sulfate 1 puff 04/07/20 19:00 04/14/20 14:20 Proventil Hfa INH Not Given [id number] KAYLYN Doxycycline Hyclate 100 mg 04/11/20 21:00 04/14/20 09:55 Vibramycin PO 04/21/20 21:01 100 mg BID KAYLYN Administration Sodium Chloride 1,000 mls @ 50 mls/hr 04/14/20 12:15 04/14/20 13:43 Normal Saline 0.9% IV 1,000 mls .Q20H KAYLYN Administration Insulin Human Isoph/Insulin Regular 10 units 04/14/20 08:00 04/14/20 16:27 Humulin 70/30 SC 10 unit TID KAYLYN Administration Insulin Human Lispro 0 units 04/07/20 15:52 04/14/20 18:16 Humalog SC 6 unit .MILD SLIDING SCALE PRN Administration Mild Correctional Scale Pantoprazole Sodium 40 mg 04/13/20 21:00 04/13/20 20:54 Protonix PO 40 mg 2100 KAYLYN Administration Prednisone 20 mg 04/12/20 08:00 04/14/20 09:55 Prednisone PO 04/17/20 08:01 20 mg QAM-WM KAYLYN Administration - Exam Neck: negative: supple, symmetric, no JVD, no thyromegaly, no lymphadenopathy, no carotid bruit, JVD Heart: negative: RRR, no murmur, no gallops, no rubs, normal peripheral pulses, irregular, diminshed peripheral pulses, murmur present, II/IV, III/IV Respiratory: rales, rhonchi Gastrointestinal: negative: soft, non-tender, non-distended, normal bowel sounds , no palpable masses, no hepatomegaly, no splenomegaly, no bruit, no guarding, no rigidity, tender to palpation, distended, diminished bowl sounds, voluntary guarding Extremities: 1+ LE edema Hosp A/P (1) Acute respiratory failure with hypoxia Code(s): J96.01 - ACUTE RESPIRATORY FAILURE WITH HYPOXIA Status: Acute (2) COVID-19 Code(s): U07.1 - COVID-19 Status: Acute (3) Cerebral palsy Code(s): G80.9 - CEREBRAL PALSY, UNSPECIFIED Status: Chronic Qualifiers: Cerebral palsy type: unspecified type Qualified Code(s): G80.9 - Cerebral palsy, unspecified (4) GERD (gastroesophageal reflux disease) Code(s): K21.9 - GASTRO-ESOPHAGEAL REFLUX DISEASE WITHOUT ESOPHAGITIS Status: Chronic (5) HTN (hypertension) Code(s): I10 - ESSENTIAL (PRIMARY) HYPERTENSION Status: Chronic Qualifiers: Hypertension type: essential hypertension Qualified Code(s): I10 - Essential (primary) hypertension (6) Severe sepsis with septic shock Code(s): A41.9 - SEPSIS, UNSPECIFIED ORGANISM; R65.21 - SEVERE SEPSIS WITH SEPTIC SHOCK Status: Acute - Plan pt overall appear worse. pt on prednisone. will continue abx. Not sure if he will recover from this. Continue peg tube feedings. pt now on face mask. / pt more awake and follows now. He is tolerating his tube feeds. will add insulin since his blood sugars are not controlled. esrd on dialysis.
[2020-04-14] MEDS ORDERED: Bisacodyl 5 MG TAB PO PRN (19:51)
[2020-04-14] MEDS ORDERED: Cyclobenzaprine 10 MG TAB PO PRN (19:51)
--- NOTE | 2020-04-14 19:51 | PDOC.HOSPP ---
- Subjective Encounter Date: 04/14/20 Encounter Time: 15:00 Subjective: pt not seen today - Objective Vital Signs & Weight: Vital Signs (12 hours) Temp Pulse Ox 04/14/20 10:55 98.4 F 04/14/20 08:00 97 Weight Admit Weight 149 lb 7.574 oz Weight 156 lb 8.451 oz Most Recent Monitor Data Heart Rate from ECG 89 NIBP 120/73 NIBP BP-Mean 88 Respiration from ECG 21 SpO2 91 I&O: 04/13/20 04/14/20 04/15/20 06:59 06:59 06:59 Intake Total 640 720 960 Output Total 315 250 200 Balance 325 470 760 Result Diagrams: 04/13/20 12:21 04/14/20 13:00 Additional Labs: Accuchecks 04/14/20 04/14/20 04/14/20 16:41 12:52 06:47 POC Glucose 406 H 288 H 261 H 04/14/20 04/13/20 01:01 21:06 POC Glucose 343 H 376 H Hospitalist ROS - Medication Medications: Active Medications Generic Name Dose Route Start Last Admin Trade Name Freq PRN Reason Stop Dose Admin Albuterol Sulfate 1 puff 04/07/20 19:00 04/14/20 14:20 Proventil Hfa INH Not Given [id number] KAYLYN Doxycycline Hyclate 100 mg 04/11/20 21:00 04/14/20 09:55 Vibramycin PO 04/21/20 21:01 100 mg BID KAYLYN Administration Sodium Chloride 1,000 mls @ 50 mls/hr 04/14/20 12:15 04/14/20 13:43 Normal Saline 0.9% IV 1,000 mls .Q20H KAYLYN Administration Insulin Human Lispro 0 units 04/07/20 15:52 04/14/20 18:16 Humalog SC 6 unit .MILD SLIDING SCALE PRN Administration Mild Correctional Scale Pantoprazole Sodium 40 mg 04/13/20 21:00 04/13/20 20:54 Protonix PO 40 mg 2100 KAYLYN Administration Prednisone 20 mg 04/12/20 08:00 04/14/20 09:55 Prednisone PO 04/17/20 08:01 20 mg QAM-WM KAYLYN Administration Hosp A/P (1) Acute respiratory failure with hypoxia Code(s): J96.01 - ACUTE RESPIRATORY FAILURE WITH HYPOXIA Status: Acute (2) COVID-19 Code(s): U07.1 - COVID-19 Status: Acute (3) Cerebral palsy Code(s): G80.9 - CEREBRAL PALSY, UNSPECIFIED Status: Chronic Qualifiers: Cerebral palsy type: unspecified type Qualified Code(s): G80.9 - Cerebral palsy, unspecified (4) GERD (gastroesophageal reflux disease) Code(s): K21.9 - GASTRO-ESOPHAGEAL REFLUX DISEASE WITHOUT ESOPHAGITIS Status: Chronic (5) HTN (hypertension) Code(s): I10 - ESSENTIAL (PRIMARY) HYPERTENSION Status: Chronic Qualifiers: Hypertension type: essential hypertension Qualified Code(s): I10 - Essential (primary) hypertension (6) Severe sepsis with septic shock Code(s): A41.9 - SEPSIS, UNSPECIFIED ORGANISM; R65.21 - SEVERE SEPSIS WITH SEPTIC SHOCK Status: Acute - Plan pt overall appear worse. pt on prednisone. will continue abx. Not sure if he will recover from this. Continue peg tube feedings. pt now on face mask. 04/13 pt more awake and follows now. He is tolerating his tube feeds. will add insulin since his blood sugars are not controlled. esrd on dialysis. 04/14 will increase his insulin. will check labs in am. His platelets are improving, hh stable will add Lovenox. pt on scd. pt on 4L nc now, was on high flow.
[2020-04-14] MEDS ORDERED: HumaLOG 300 UNITS/3 ML VIAL SC SCH (20:00)
[2020-04-14] MEDS: Enoxaparin Sodium 30 MG/0.3 ML SYRINGE SC SCH (21:36)
[2020-04-14] MEDS ORDERED: Ferrous Sulfate 325 MG TAB PO SCH (22:00)
[2020-04-15] MEDS: HumaLOG 300 UNITS/3 ML VIAL SC PRN ×5 (00:29→21:32)
[2020-04-15] MEDS: Albuterol 200 PUFF (6.7GM INHALER) INH SCH ×4 (02:20→18:51)
[2020-04-15 05:47] LABS: ALT (SGPT) 53 U/L (8-55); AST (SGOT) 34 U/L (5-34); Albumin 2.8 g/dL (3.5-5.0); Alkaline Phosphatase 117 U/L (40-110); Anion Gap 19 mmol/L (10-20); Bilirubin, Total 0.3 mg/dL (0.2-1.2); Calc. Creatinine Clearance 11 mL/min (70-130); Calcium 7.8 mg/dL (7.8-10.44); Carbon Dioxide 24 mmol/L (22-29); Chloride 103 mmol/L (98-107); Estimated GFR-MDRD 9; Glucose 274 mg/dL (70-105); Potassium 3.3 mmol/L (3.5-5.1); Protein, Total 5.8 g/dL (6.0-8.3); Sodium 143 mmol/L (136-145)
[2020-04-15 05:58] LABS: BUN (Urea Nitrogen) 131 mg/dL (8.4-25.7)
[2020-04-15 06:04] LABS: Band 6 % (5-11); Eosinophils 3 % (0-10); Hemoglobin 8.7 g/dL (14.0-18.0); Large Platelets SLIGHT; Lymphocytes 6 % (21-51); MDiff Complete? YES; Mean Corpuscular HGB CONC 31.8 g/dL (32.0-36.0); Mean Corpuscular Hemoglobin 25.6 pg (27.0-31.0); Mean Corpuscular Volume 80.5 fL (78.0-98.0); Mean Platelet Volume 11.5 fL (7.4-10.4); Monocytes 6 % (0-10); Neutrophil 79 % (42-75); Platelet Count 185 thou/uL (130-400); Platelet Morphology Comment Appears Adequate; RBC Distribution Width 13.8 % (11.5-14.5); White Blood Cell (WBC) Count 13.1 thou/uL (4.8-10.8)
[2020-04-15] MEDS: Sodium Chloride 0.9% 1,000 ML IV SCH (06:22)
[2020-04-15] MEDS: predniSONE 20 MG TAB PO SCH (08:51)
[2020-04-15] MEDS: Doxycycline 100 MG CAP PO SCH ×2 (08:51→21:30)
[2020-04-15] MEDS: Multivit, Therapeutic 1 TAB PO SCH (08:52)
[2020-04-15] MEDS: Gabapentin 300 MG CAP PO SCH (08:52)
[2020-04-15] MEDS: Ferrous Sulfate 325 MG TAB PO SCH ×2 (08:52→18:48)
[2020-04-15] MEDS: HumuLIN 70/30 (300 UNITS/3 ML VIAL) SC SCH ×3 (08:54→21:31)
[2020-04-15] MEDS ORDERED: Heparin 10,000 UNITS/ 10 ML VIAL ONE (11:15)
--- NOTE | 2020-04-15 12:50 | PRG ---
DATE OF SERVICE: 04/15/2020 SUBJECTIVE: A 59-year-old gentleman, being seen for acute kidney injury. The patient denies any nausea, vomiting, or chest pain. PHYSICAL EXAMINATION: GENERAL: The patient is resting. VITAL SIGNS: Afebrile, pulse 101, breathing 16, blood pressure 142/74. HEENT: Head normocephalic and atraumatic. Eyes intact, no ulcers. Nose intact, no ulcers. Ears intact, no ulcers. NECK: Supple. No JVD. CHEST: Symmetrical and clear. CARDIOVASCULAR: Shows S1 and S2, no rub, no murmur. GASTROINTESTINAL: Abdomen is soft, bowel sounds positive. EXTREMITIES: Show no edema or ulcers. SKIN: Shows no rash or petechiae. MUSCULOSKELETAL: Shows no joint swelling or stiffness. GENITOURINARY: Shows no Dorantes or CVA tenderness. NEUROLOGIC: Motor intact. Cranial nerves intact. LABORATORY DATA: Show hemoglobin 8.7. Creatinine 7.6. ASSESSMENT AND PLAN: 1. Acute kidney injury with chronic kidney disease with progressive uremia. Plan dialysis. 2. Hypertension, stable. 3. Anemia, stable. 4. Medication based on GFR appropriate. Job ID: [id number]
--- NOTE | 2020-04-15 16:13 | PDOC.HOSPP ---
- Subjective Encounter Date: 04/15/20 Encounter Time: 16:00 Subjective: f/u for COVID PNA and sepsis previously on high-flow O2 now on 4L/min NC. Receiving HD/Doxycycline/Prednisone. - Objective Vital Signs & Weight: Vital Signs (12 hours) Temp Pulse Ox 04/15/20 12:00 97.3 F L 04/15/20 08:00 100 F H 95 04/15/20 07:00 91 L Weight Admit Weight 149 lb 7.574 oz Weight 159 lb 9.835 oz Most Recent Monitor Data Heart Rate from ECG 90 NIBP 99/55 NIBP BP-Mean 69 Respiration from ECG 19 SpO2 94 I&O: 04/14/20 04/15/20 04/16/20 06:59 06:59 06:59 Intake Total 720 1020 30 Output Total 250 300 Balance 470 720 30 Result Diagrams: 04/15/20 05:01 04/15/20 05:01 Additional Labs: Accuchecks 04/15/20 04/15/20 04/14/20 10:04 06:28 21:49 POC Glucose 263 H 246 H 368 H 04/14/20 04/14/20 04/14/20 18:24 16:41 12:52 POC Glucose 371 H 406 H 288 H Microbiology 04/07/20 10:13 Venous blood - Right Arm Blood Culture - Final Coagulase Neg Staphylococcus Coagulase Neg Staphylococcus#2 04/07/20 10:12 Venous blood - Left Hand Blood Culture - Final NO GROWTH IN 5 DAYS 04/07/20 09:30 Urine parrish catheter Urine Culture - Final NO GROWTH AT 48 HOURS Laboratory Tests 04/15/20 04/15/20 05:01 05:01 Ferritin 590.27 H C-Reactive Protein 10.60 H EKG Reviewed by me: Yes (Tele - SR in 90's) Hospitalist ROS - Medication Medications: Active Medications Generic Name Dose Route Start Last Admin Trade Name Freq PRN Reason Stop Dose Admin Albuterol Sulfate 1 puff 04/07/20 19:00 04/15/20 14:20 Proventil Hfa INH Not Given [id number] KAYLYN Doxycycline Hyclate 100 mg 04/11/20 21:00 04/15/20 08:51 Vibramycin PO 04/21/20 21:01 100 mg BID KAYLYN Administration Enoxaparin Sodium 30 mg 04/14/20 21:00 04/14/20 21:36 Lovenox SC 30 mg 2100 KAYLYN Administration Ferrous Sulfate 325 mg 04/15/20 10:00 04/15/20 08:52 Feosol PO 325 mg 1000,1700 KAYLYN Administration Gabapentin 300 mg 04/15/20 09:00 04/15/20 08:52 Neurontin PO 300 mg DAILY KAYLYN Administration Sodium Chloride 1,000 mls @ 50 mls/hr 04/14/20 12:15 04/15/20 06:22 Normal Saline 0.9% IV 1,000 mls .Q20H KAYLYN Administration Insulin Human Isoph/Insulin Regular 15 units 04/14/20 19:44 04/15/20 08:54 Humulin 70/30 SC 15 unit TID KAYLYN Administration Insulin Human Lispro 0 units 04/07/20 15:52 04/15/20 10:02 Humalog SC 4 unit .MILD SLIDING SCALE PRN Administration Mild Correctional Scale Insulin Human Lispro 0 units 04/07/20 15:52 04/15/20 00:29 Humalog SC 4 unit .BEDTIME SLIDING SC PRN Administration Bedtime Correctional Scale Metoprolol Succinate 25 mg 04/15/20 09:00 04/15/20 08:52 Toprol Xl PO 25 mg QAM KAYLYN Administration Multivitamins 1 tab 04/15/20 09:00 04/15/20 08:52 Theragran PO 1 tab DAILY KAYLYN Administration Pantoprazole Sodium 40 mg 04/13/20 21:00 04/14/20 21:35 Protonix PO 40 mg 2100 KAYLYN Administration Prednisone 20 mg 04/12/20 08:00 04/15/20 08:51 Prednisone PO 04/17/20 08:01 20 mg QAM-WM KAYLYN Administration Sodium Chloride 10 ml 04/08/20 14:44 04/15/20 08:52 Flush - Normal Saline IVF 10 ml PRN PRN Administration Saline Flush - Exam General Appearance: NAD Eye: PERRL, anicteric sclera ENT: normocephalic atraumatic, no oropharyngeal lesions Neck: supple, symmetric, no JVD, no thyromegaly Heart: RRR, no murmur, no gallops, no rubs, normal peripheral pulses Heart - other findings: S1, S2 Respiratory: tachypneic Respiratory - other findings: diminished in bases Gastrointestinal: soft, non-tender, non-distended, normal bowel sounds, no palpable masses Extremities: no cyanosis, no clubbing, no edema Skin: normal turgor Neurological: no new deficit Musculoskeletal: generalized weakness Psychiatric: somnolent, lethargic Hosp A/P (1) Acute respiratory failure with hypoxia Code(s): J96.01 - ACUTE RESPIRATORY FAILURE WITH HYPOXIA Status: Acute Plan: Weaning on O2 support to 4L/min NC, pulmonary supportive measures (2) COVID-19 Code(s): U07.1 - COVID-19 Status: Acute Plan: Continue Prednisone/Doxycycline (3) Severe sepsis with septic shock Code(s): A41.9 - SEPSIS, UNSPECIFIED ORGANISM; R65.21 - SEVERE SEPSIS WITH SEPTIC SHOCK Status: Acute Plan: Resolved (4) Hyperkalemia Code(s): E87.5 - HYPERKALEMIA Status: Acute Plan: Resolved with HD, serial monitoring (5) Cerebral palsy Code(s): G80.9 - CEREBRAL PALSY, UNSPECIFIED Status: Chronic Qualifiers: Cerebral palsy type: unspecified type Qualified Code(s): G80.9 - Cerebral palsy, unspecified - Plan continue antibiotics, social media strategist, respiratory therapy, DVT proph w/SCDs Continue supportive mgmt continue O2 @ 4L/min NC Continue Prednisone HD per Renal service Code status: DNAR Likely back to NH in 48-72h
--- NOTE | 2020-04-15 20:36 | PRG ---
DATE OF SERVICE: 04/15/2020 SUBJECTIVE: Yousif Nunn appears comfortable. He is in no distress. He is only on nasal cannula. Heart rates in the 80s, blood pressure 123/72, respiratory rates in the teens to low 20s, oximetry is 94. He is otherwise unchanged. OBJECTIVE: He appears to be stable. LABORATORY DATA: White count 13.1, hemoglobin 8.7, platelets 185. BUN 131, creatinine 7.66. Potassium is 3.3. IMPRESSION: 1. Cerebral palsy. 2. Acute renal failure. 3. COVID-19 pneumonia, which is clinically stable and improving. He is a do not resuscitate patient. He probably cannot go back to a [facility] until he is 14 days' out at least from his symptom onset. It is my understanding that the family does not want him to undergo dialysis. The patient has had progressive renal function. Nephrology is following the patient contemplating dialysis. He is not hyperkalemic. He had a dialysis catheter placed on April 13 in his femoral vein. He appears to be stable from a Pulmonary perspective. Job ID: [id number]
[2020-04-15] MEDS: Enoxaparin Sodium 30 MG/0.3 ML SYRINGE SC SCH (21:30)
[2020-04-16] MEDS: Albuterol 200 PUFF (6.7GM INHALER) INH SCH ×4 (00:58→18:46)
[2020-04-16] MEDS: Acetaminophen 650 MG Suppository PR PRN (03:50)
[2020-04-16] MEDS: Sodium Chloride 0.9% 1,000 ML IV SCH (05:40)
[2020-04-16] MEDS: Multivit, Therapeutic 1 TAB PO SCH (08:40)
[2020-04-16] MEDS: Doxycycline 100 MG CAP PO SCH ×2 (08:40→20:29)
[2020-04-16] MEDS: predniSONE 20 MG TAB PO SCH (08:40)
[2020-04-16] MEDS: Ferrous Sulfate 325 MG TAB PO SCH ×2 (08:40→18:29)
[2020-04-16] MEDS: Gabapentin 300 MG CAP PO SCH (08:40)
[2020-04-16] MEDS: HumuLIN 70/30 (300 UNITS/3 ML VIAL) SC SCH ×3 (08:41→20:29)
--- NOTE | 2020-04-16 11:29 | PRG ---
DATE OF SERVICE: 04/16/2020 SUBJECTIVE: A 59-year-old gentleman being seen for acute kidney injury, dialysis dependent. OBJECTIVE: GENERAL: On exam, the patient is resting. VITAL SIGNS: Afebrile, pulse 87, breathing at 16, and blood pressure 109/67. HEENT: Head normocephalic and atraumatic. Eyes intact, no ulcers. Nose intact, no ulcers. Ears intact, no ulcers. NECK: Supple. No JVD. CHEST: Symmetrical and clear. CARDIOVASCULAR: Shows S1 and S2, no rub, no murmur. GASTROINTESTINAL: Abdomen is soft, bowel sounds positive. EXTREMITIES: Show no edema or ulcers. SKIN: Shows no rash or petechiae. MUSCULOSKELETAL: Shows no joint swelling or stiffness. GENITOURINARY: Shows no Dorantes or CVA tenderness. NEUROLOGIC: Motor intact. Cranial nerves intact. LABORATORY DATA: Labs show hemoglobin 8.7. ASSESSMENT AND PLAN: 1. Stage 5 chronic kidney disease. Plan dialysis tomorrow. 2. Hypertension, stable. 3. Anemia, stable. 4. Medications based on GFR are appropriate. Job ID: [id number]
--- NOTE | 2020-04-16 14:24 | PRG ---
DATE OF SERVICE: 04/16/2020 SUBJECTIVE: Yousif Nunn has face mask and oxygen on today. His hemodynamics have been stable. OBJECTIVE: VITAL SIGNS: Blood pressure is 125/76, heart rate is 70, respiratory rate is in 20s. LUNGS: Otherwise unchanged. HEART: Otherwise unchanged. ABDOMEN: Otherwise unchanged. LABORATORY DATA: There is no new lab and other blood glucoses. IMPRESSION: 1. Coronary virus disease-19 pneumonia. 2. Cerebral palsy. 3. Deconditioning and atelectasis, which I suspect accounts for his issues with gas exchange at this point. We will continue supportive care. Obviously, he would not be able to go back to his [facility] until he has a negative COVID screen, which could be several weeks away. He is 9 days into the hospitalization, probably over 2 weeks into his illness and probably no longer is transmitting virus. We will continue to follow up. Job ID: [id number]
--- NOTE | 2020-04-16 14:26 | PDOC.HOSPP ---
- Subjective Encounter Date: 04/16/20 Encounter Time: 14:20 Subjective: f/u for COVID-19 PNA on current VM and off high-flow NC. More awake and nods to questions. Nursing states that current Dobhoff plugged and unable to be salvaged. - Objective Vital Signs & Weight: Vital Signs (12 hours) Temp Pulse Ox 04/16/20 13:09 93 L 04/16/20 10:00 98.1 F 04/16/20 07:59 95 04/16/20 05:20 99.6 F 04/16/20 04:02 100.2 F H Weight Admit Weight 149 lb 7.574 oz Weight 164 lb 3.91 oz Most Recent Monitor Data Heart Rate from ECG 79 NIBP 103/59 NIBP BP-Mean 73 Respiration from ECG 22 SpO2 92 I&O: 04/15/20 04/16/20 04/17/20 06:59 06:59 06:59 Intake Total 1020 2430 Output Total 300 900 Balance 720 1530 Result Diagrams: 04/15/20 05:01 04/15/20 05:01 Additional Labs: Accuchecks 04/16/20 04/16/20 04/15/20 05:14 00:18 21:41 POC Glucose 160 H 171 H 211 H 04/15/20 17:37 POC Glucose 202 H Microbiology 04/07/20 10:13 Venous blood - Right Arm Blood Culture - Final Coagulase Neg Staphylococcus Coagulase Neg Staphylococcus#2 04/07/20 10:12 Venous blood - Left Hand Blood Culture - Final NO GROWTH IN 5 DAYS 04/07/20 09:30 Urine parrish catheter Urine Culture - Final NO GROWTH AT 48 HOURS Laboratory Tests 04/15/20 04/15/20 05:01 05:01 Ferritin 590.27 H C-Reactive Protein 10.60 H EKG Reviewed by me: Yes (Tele - SR) Hospitalist ROS - Medication Medications: Active Medications Generic Name Dose Route Start Last Admin Trade Name Freq PRN Reason Stop Dose Admin Acetaminophen 650 mg 04/07/20 15:52 04/16/20 03:50 Tylenol [place] 650 mg Q4H PRN Administration Fever > 101 Albuterol Sulfate 1 puff 04/07/20 19:00 04/16/20 06:01 Proventil Hfa INH Not Given [id number] KAYLYN Doxycycline Hyclate 100 mg 04/11/20 21:00 04/16/20 08:40 Vibramycin PO 04/21/20 21:01 100 mg BID KAYYLN Administration Enoxaparin Sodium 30 mg 04/14/20 21:00 04/15/20 21:30 Lovenox SC 30 mg 2100 KAYLYN Administration Ferrous Sulfate 325 mg 04/15/20 10:00 04/16/20 08:40 Feosol PO 325 mg 1000,1700 KAYLYN Administration Gabapentin 300 mg 04/15/20 09:00 04/16/20 08:40 Neurontin PO 300 mg DAILY KAYLYN Administration Sodium Chloride 1,000 mls @ 50 mls/hr 04/14/20 12:15 04/16/20 05:40 Normal Saline 0.9% IV Not Given .Q20H KAYLYN Insulin Human Isoph/Insulin Regular 15 units 04/14/20 19:44 04/16/20 08:41 Humulin 70/30 SC 15 unit TID KAYLYN Administration Insulin Human Lispro 0 units 04/07/20 15:52 04/15/20 18:50 Humalog SC 3 unit .MILD SLIDING SCALE PRN Administration Mild Correctional Scale Insulin Human Lispro 0 units 04/07/20 15:52 04/15/20 21:32 Humalog SC 2 unit .BEDTIME SLIDING SC PRN Administration Bedtime Correctional Scale Metoprolol Succinate 25 mg 04/15/20 09:00 04/16/20 10:16 Toprol Xl PO Not Given QAM KAYLYN Multivitamins 1 tab 04/15/20 09:00 04/16/20 08:40 Theragran PO 1 tab DAILY KAYLYN Administration Pantoprazole Sodium 40 mg 04/13/20 21:00 04/15/20 21:30 Protonix PO 40 mg 2100 KAYLYN Administration Prednisone 20 mg 04/12/20 08:00 04/16/20 08:40 Prednisone PO 04/17/20 08:01 20 mg QAM-WM KAYLYN Administration Sodium Chloride 10 ml 04/08/20 14:44 04/15/20 08:52 Flush - Normal Saline IVF 10 ml PRN PRN Administration Saline Flush - Exam General Appearance: awake alert, ill appearing Eye: PERRL, anicteric sclera ENT: normocephalic atraumatic, no oropharyngeal lesions Neck: supple, symmetric, no JVD, no thyromegaly, no lymphadenopathy Heart: RRR, no murmur, no gallops, no rubs, normal peripheral pulses Heart - other findings: S1, S2 Respiratory: tachypneic Respiratory - other findings: coarse rhonchi bilat, diminished in bases Gastrointestinal: soft, non-tender, non-distended, normal bowel sounds, no palpable masses Extremities: no cyanosis, no clubbing, no edema Extremities - other findings: atrophy and deformity(chronic) Skin: normal turgor, no lesions Neurological: no new deficit Musculoskeletal: generalized weakness Psychiatric: oriented to person, somnolent Hosp A/P (1) Acute respiratory failure with hypoxia Code(s): J96.01 - ACUTE RESPIRATORY FAILURE WITH HYPOXIA Status: Acute Plan: Continue pulmonary supportive mgmt, transitioned to VM, serial monitoring (2) COVID-19 Code(s): U07.1 - COVID-19 Status: Acute Plan: Continue supportive mgmt, Doxycycline/Prednisone (3) Severe sepsis with septic shock Code(s): A41.9 - SEPSIS, UNSPECIFIED ORGANISM; R65.21 - SEVERE SEPSIS WITH SEPTIC SHOCK Status: Acute (4) Hyperkalemia Code(s): E87.5 - HYPERKALEMIA Status: Acute (5) Cerebral palsy Code(s): G80.9 - CEREBRAL PALSY, UNSPECIFIED Status: Chronic Qualifiers: Cerebral palsy type: unspecified type Qualified Code(s): G80.9 - Cerebral palsy, unspecified - Plan continue antibiotics, social science teacher, speech therapy, respiratory therapy, DVT proph w/SCDs Continue supportive mgmt continue O2 via VM Continue Prednisone/Doxycycline Replace new Dobhoff feeding tube today HD per Renal service Code status: DNAR AM lab: CRP, Ferritin
--- NOTE | 2020-04-16 16:14 | RAD ---
KUB: Date: 04-16-2020 Provided Clinical History: Dobbhoff placement. FINDINGS: Bilateral pulmonary parenchymal opacities are demonstrated. Enteric catheter is noted, the tip of whi ch overlies the right upper quadrant just right of midline. The visualized abdominal bowel gas patter n is nonspecific. IMPRESSION: As above. POS: RICKI
[2020-04-16] MEDS: Enoxaparin Sodium 30 MG/0.3 ML SYRINGE SC SCH (20:29)
[2020-04-17] MEDS: Albuterol 200 PUFF (6.7GM INHALER) INH SCH ×4 (02:04→18:20)
[2020-04-17] MEDS: Acetaminophen 650 MG Suppository PR PRN (03:30)
[2020-04-17] MEDS: Sodium Chloride 0.9% 1,000 ML IV SCH ×2 (06:13→21:01)
[2020-04-17] MEDS: predniSONE 20 MG TAB PO SCH (08:49)
[2020-04-17] MEDS: Gabapentin 300 MG CAP PO SCH (08:50)
[2020-04-17] MEDS: Multivit, Therapeutic 1 TAB PO SCH (08:50)
[2020-04-17] MEDS: Doxycycline 100 MG CAP PO SCH ×2 (08:50→20:34)
[2020-04-17] MEDS: Ferrous Sulfate 325 MG TAB PO SCH ×2 (08:50→17:36)
[2020-04-17] MEDS ORDERED: Heparin 10,000 UNITS/ 10 ML VIAL ONE (09:30)
[2020-04-17] MEDS: HumuLIN 70/30 (300 UNITS/3 ML VIAL) SC SCH ×3 (09:33→20:34)
--- NOTE | 2020-04-17 11:36 | PRG ---
DATE OF SERVICE: 04/17/2020 SUBJECTIVE: The patient is on COVID isolation. OBJECTIVE: VITAL SIGNS: Temperature 98.9, pulse 91, respiratory rate 20, and blood pressure 107/61. LABORATORY DATA: Not done today. ASSESSMENT AND PLAN: 1. Acute kidney injury on chronic kidney disease, dialysis dependent. Plan to have dialysis. 2. Hypertension. 3. . 4. Acute hypoxic respiratory failure, better. 5. Anemia of chronic disease. Plan to have dialysis. Repeat labs and monitor urine output. Job ID: [id number]
[2020-04-17] MEDS: HumaLOG 300 UNITS/3 ML VIAL SC PRN (12:10)
[2020-04-17 12:38] LABS: Anion Gap 13 mmol/L (10-20); BUN (Urea Nitrogen) 83 mg/dL (8.4-25.7); Calc. Creatinine Clearance 25 mL/min (70-130); Calcium 7.9 mg/dL (7.8-10.44); Carbon Dioxide 29 mmol/L (22-29); Chloride 103 mmol/L (98-107); Estimated GFR-MDRD 23; Glucose 261 mg/dL (70-105); Potassium 3.9 mmol/L (3.5-5.1); Sodium 141 mmol/L (136-145)
--- NOTE | 2020-04-17 14:27 | PDOC.HOSPP ---
- Subjective Encounter Date: 04/17/20 Encounter Time: 14:15 Subjective: f/u for COVID-19 PNA on current O2 @ 15L/min, Doxycycline/Albuterol MDI. Tolerating TF's with Nepro. - Objective Vital Signs & Weight: Vital Signs (12 hours) Temp Pulse Ox 04/17/20 12:03 98.1 F 04/17/20 09:19 98.9 F 04/17/20 08:00 98 04/17/20 06:23 99.5 F 04/17/20 04:00 102.2 F H Weight Admit Weight 149 lb 7.574 oz Weight 166 lb 3.657 oz Most Recent Monitor Data Heart Rate from ECG 92 NIBP 112/68 NIBP BP-Mean 82 Respiration from ECG 20 SpO2 94 I&O: 04/16/20 04/17/20 04/18/20 06:59 06:59 06:59 Intake Total 2430 2260 30 Output Total 900 1900 Balance 1530 360 30 Result Diagrams: 04/15/20 05:01 04/17/20 12:04 Additional Labs: Accuchecks 04/17/20 04/17/20 04/16/20 12:01 00:29 20:41 POC Glucose 261 H 123 H 111 H 04/16/20 04/16/20 18:41 14:32 POC Glucose 89 133 H Microbiology 04/07/20 10:13 Venous blood - Right Arm Blood Culture - Final Coagulase Neg Staphylococcus Coagulase Neg Staphylococcus#2 04/07/20 10:12 Venous blood - Left Hand Blood Culture - Final NO GROWTH IN 5 DAYS 04/07/20 09:30 Urine parrish catheter Urine Culture - Final NO GROWTH AT 48 HOURS Laboratory Tests 04/07/20 04/12/20 04/15/20 09:30 10:35 05:01 Ferritin C-Reactive Protein 10.60 H B-Natriuretic Peptide 57.6 165.0 H 04/15/20 04/17/20 04/17/20 05:01 03:30 03:30 Ferritin 590.27 H 642.39 H C-Reactive Protein 15.00 H B-Natriuretic Peptide Radiology Reviewed by me: Yes (PCXR - bilat infiltrates) EKG Reviewed by me: Yes (Tele - SR) Hospitalist ROS - Medication Medications: Active Medications Generic Name Dose Route Start Last Admin Trade Name Freq PRN Reason Stop Dose Admin Acetaminophen 650 mg 04/07/20 15:52 04/17/20 03:30 Tylenol ME 650 mg Q4H PRN Administration Fever > 101 Albuterol Sulfate 1 puff 04/07/20 19:00 04/17/20 12:30 Proventil Hfa INH Not Given [id number] KAYLYN Doxycycline Hyclate 100 mg 04/11/20 21:00 04/17/20 08:50 Vibramycin PO 04/21/20 21:01 100 mg BID KAYLYN Administration Enoxaparin Sodium 30 mg 04/14/20 21:00 04/16/20 20:29 Lovenox SC 30 mg 2100 KAYLYN Administration Ferrous Sulfate 325 mg 04/15/20 10:00 04/17/20 08:50 Feosol PO 325 mg 1000,1700 KAYLYN Administration Gabapentin 300 mg 04/15/20 09:00 04/17/20 08:50 Neurontin PO 300 mg DAILY KAYLYN Administration Sodium Chloride 1,000 mls @ 50 mls/hr 04/14/20 12:15 04/17/20 06:13 Normal Saline 0.9% IV Not Given .Q20H KAYLYN Insulin Human Isoph/Insulin Regular 15 units 04/14/20 19:44 04/17/20 09:33 Humulin 70/30 SC Not Given [facility] Insulin Human Lispro 0 units 04/07/20 15:52 04/17/20 12:10 Humalog SC 4 unit .MILD SLIDING SCALE PRN Administration Mild Correctional Scale Insulin Human Lispro 0 units 04/07/20 15:52 04/15/20 21:32 Humalog SC 2 unit .BEDTIME SLIDING SC PRN Administration Bedtime Correctional Scale Metoprolol Succinate 25 mg 04/15/20 09:00 04/17/20 08:50 Toprol Xl PO 25 mg QAM KAYLYN Administration Multivitamins 1 tab 04/15/20 09:00 04/17/20 08:50 Theragran PO 1 tab DAILY KAYLYN Administration Pantoprazole Sodium 40 mg 04/13/20 21:00 04/16/20 20:29 Protonix PO 40 mg 2100 KAYLYN Administration Sodium Chloride 10 ml 04/08/20 14:44 04/15/20 08:52 Flush - Normal Saline IVF 10 ml PRN PRN Administration Saline Flush - Exam General - other findings: somnolent, opens eyes to name and nods Eye: PERRL, anicteric sclera ENT: normocephalic atraumatic, no oropharyngeal lesions Neck: supple, symmetric, no JVD, no thyromegaly, no lymphadenopathy Heart: RRR, no gallops, no rubs, normal peripheral pulses Heart - other findings: S1, S2 Respiratory: tachypneic Respiratory - other findings: coarse sounds bilat Gastrointestinal: soft, non-tender, non-distended, normal bowel sounds, no palpable masses Extremities: no cyanosis, no clubbing, no edema Skin: normal turgor Neurological: no new deficit Musculoskeletal: generalized weakness Psychiatric: somnolent, lethargic Hosp A/P (1) Acute respiratory failure with hypoxia Code(s): J96.01 - ACUTE RESPIRATORY FAILURE WITH HYPOXIA Status: Acute Plan: Continue O2 support, currently on 15L/min (2) COVID-19 Code(s): U07.1 - COVID-19 Status: Acute Plan: Continue Doxycycline/Albuterol, O2 support (3) Acute kidney injury Code(s): N17.9 - ACUTE KIDNEY FAILURE, UNSPECIFIED Status: Acute Plan: HD currently, UOP continues to improve, likely may recover renal function and not require computer terminal operator HD (4) Severe sepsis with septic shock Code(s): A41.9 - SEPSIS, UNSPECIFIED ORGANISM; R65.21 - SEVERE SEPSIS WITH SEPTIC SHOCK Status: Acute (5) Hyperkalemia Code(s): E87.5 - HYPERKALEMIA Status: Acute (6) Cerebral palsy Code(s): G80.9 - CEREBRAL PALSY, UNSPECIFIED Status: Chronic Qualifiers: Cerebral palsy type: unspecified type Qualified Code(s): G80.9 - Cerebral palsy, unspecified - Plan 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
[2020-04-17] MEDS ORDERED: Bisacodyl 10 MG SUPP PR PRN (14:37)
[2020-04-17] MEDS ORDERED: Polyethylene Glycol 3350 17 GM Packet PER TUBE SCH (15:00)
[2020-04-17] MEDS: Enoxaparin Sodium 30 MG/0.3 ML SYRINGE SC SCH (20:34)
[2020-04-18] MEDS: Acetaminophen 650 MG Suppository PR PRN (00:17)
[2020-04-18] MEDS: Albuterol 200 PUFF (6.7GM INHALER) INH SCH ×4 (01:07→18:05)
[2020-04-18 02:52] LABS: Anion Gap 14 mmol/L (10-20); BUN (Urea Nitrogen) 41 mg/dL (8.4-25.7); Calc. Creatinine Clearance 46 mL/min (70-130); Calcium 7.9 mg/dL (7.8-10.44); Carbon Dioxide 29 mmol/L (22-29); Chloride 104 mmol/L (98-107); Estimated GFR-MDRD 45; Glucose 161 mg/dL (70-105); Potassium 3.6 mmol/L (3.5-5.1); Sodium 143 mmol/L (136-145)
[2020-04-18] MEDS: Sodium Chloride 0.9% 1,000 ML IV SCH (05:58)
[2020-04-18] MEDS: HumuLIN 70/30 (300 UNITS/3 ML VIAL) SC SCH ×2 (08:48→21:17)
[2020-04-18] MEDS: Gabapentin 300 MG CAP PO SCH (08:48)
[2020-04-18] MEDS: Multivit, Therapeutic 1 TAB PO SCH (08:48)
[2020-04-18] MEDS: Doxycycline 100 MG CAP PO SCH ×2 (08:48→21:16)
[2020-04-18] MEDS: Ferrous Sulfate 325 MG TAB PO SCH ×2 (11:37→17:05)
[2020-04-18] MEDS: Polyethylene Glycol 3350 17 GM Packet PER TUBE SCH (11:37)
--- NOTE | 2020-04-18 13:58 | PRG ---
DATE OF SERVICE: 04/18/2020 SUBJECTIVE: The patient is on COVID isolation. OBJECTIVE: VITAL SIGNS: Temperature 99.1, pulse 90, respiratory rate 20, and blood pressure 138/77. LABORATORY DATA: Potassium 3.6, BUN is 41, and creatinine is 1.8. Urine output . ASSESSMENT AND PLAN: 1. Acute kidney injury on chronic kidney disease, stage 3. Seems to be nonoliguric renal injury with improvement in urine output. Labs are looking stable tolerated. We will continue close monitoring. Repeat labs in the morning. 2. Hypertension. 3. Edema, controlled. 4. Acute hypoxic respiratory failure. 5. Anemia of chronic disease. 6. Altered mentation. Overall, labs are looking better. No indication for dialysis. We will order labs for the morning. Job ID: [id number]
[2020-04-18] MEDS: HumaLOG 300 UNITS/3 ML VIAL SC PRN (14:38)
--- NOTE | 2020-04-18 16:48 | PDOC.HOSPP ---
- Subjective Encounter Date: 04/18/20 Encounter Time: 16:15 Subjective: f/u for COVID-19 PNA and hypoxic resp failure on current 15L/min O2. Nursing reports low-grade temp spikes. Tolerating TF's currently. - Objective Vital Signs & Weight: Vital Signs (12 hours) Temp Pulse Ox 04/18/20 14:58 100.7 F H 04/18/20 09:30 99.1 F 04/18/20 08:00 98 Weight Admit Weight 149 lb 7.574 oz Weight 164 lb 14.492 oz Most Recent Monitor Data Heart Rate from ECG 99 NIBP 121/66 NIBP BP-Mean 84 Respiration from ECG 21 SpO2 95 I&O: 04/17/20 04/18/20 04/19/20 06:59 06:59 06:59 Intake Total 2260 2385 60 Output Total 1900 1800 900 Balance 360 115 840 Result Diagrams: 04/15/20 05:01 04/18/20 02:10 Additional Labs: Accuchecks 04/18/20 04/18/20 04/17/20 14:54 00:18 20:44 POC Glucose 151 H 151 H 157 H 04/17/20 04/17/20 17:55 06:22 POC Glucose 184 H 85 Microbiology 04/07/20 10:13 Venous blood - Right Arm Blood Culture - Final Coagulase Neg Staphylococcus Coagulase Neg Staphylococcus#2 04/07/20 10:12 Venous blood - Left Hand Blood Culture - Final NO GROWTH IN 5 DAYS 04/07/20 09:30 Urine parrish catheter Urine Culture - Final NO GROWTH AT 48 HOURS Laboratory Tests 04/07/20 04/12/20 04/15/20 09:30 10:35 05:01 Ferritin C-Reactive Protein 10.60 H B-Natriuretic Peptide 57.6 165.0 H 04/15/20 04/17/20 04/17/20 05:01 03:30 03:30 Ferritin 590.27 H 642.39 H C-Reactive Protein 15.00 H B-Natriuretic Peptide EKG Reviewed by me: Yes (Tele - SR) Hospitalist ROS - Medication Medications: Active Medications Generic Name Dose Route Start Last Admin Trade Name Freq PRN Reason Stop Dose Admin Acetaminophen 650 mg 04/07/20 15:52 04/18/20 00:17 Tylenol MD 650 mg Q4H PRN Administration Fever > 101 Albuterol Sulfate 1 puff 04/07/20 19:00 04/18/20 11:52 Proventil Hfa INH Not Given [id number] [facility] Doxycycline Hyclate 100 mg 04/11/20 21:00 04/18/20 08:48 Vibramycin PO 04/21/20 21:01 100 mg BID KAYLYN Administration Enoxaparin Sodium 30 mg 04/14/20 21:00 04/17/20 20:34 Lovenox SC 30 mg 2100 KAYLYN Administration Ferrous Sulfate 325 mg 04/15/20 10:00 04/18/20 11:37 Feosol PO 325 mg 1000,1700 KAYLYN Administration Gabapentin 300 mg 04/15/20 09:00 04/18/20 08:48 Neurontin PO 300 mg DAILY KAYLYN Administration Insulin Human Lispro 0 units 04/07/20 15:52 04/18/20 14:38 Humalog SC 2 unit .MILD SLIDING SCALE PRN Administration Mild Correctional Scale Insulin Human Lispro 0 units 04/07/20 15:52 04/15/20 21:32 Humalog SC 2 unit .BEDTIME SLIDING SC PRN Administration Bedtime Correctional Scale Metoprolol Succinate 25 mg 04/15/20 09:00 04/18/20 08:48 Toprol Xl PO 25 mg QAM KAYLYN Administration Multivitamins 1 tab 04/15/20 09:00 04/18/20 08:48 Theragran PO 1 tab DAILY KAYLYN Administration Pantoprazole Sodium 40 mg 04/13/20 21:00 04/17/20 20:34 Protonix PO 40 mg 2100 KAYLYN Administration Polyethylene Glycol 17 gm 04/18/20 09:00 04/18/20 11:37 Miralax PER TUBE 17 gm DAILY KAYLYN Administration Sodium Chloride 10 ml 04/08/20 14:44 04/15/20 08:52 Flush - Normal Saline IVF 10 ml PRN PRN Administration Saline Flush - Exam General Appearance: awake alert, ill appearing Eye: PERRL, anicteric sclera ENT: normocephalic atraumatic, no oropharyngeal lesions Neck: supple, symmetric, no JVD, no thyromegaly, no lymphadenopathy Heart: RRR, no murmur, no rubs, normal peripheral pulses Heart - other findings: S1, S2 with tachycardia Respiratory - other findings: diminished bilat, coarse in bases Gastrointestinal: soft, non-tender, non-distended, normal bowel sounds, no palpable masses Extremities: no cyanosis, no clubbing Skin: normal turgor, no lesions Neurological: cranial nerve grossly intact, no new deficit Musculoskeletal: generalized weakness Psychiatric: oriented to person Hosp A/P (1) Acute respiratory failure with hypoxia Code(s): J96.01 - ACUTE RESPIRATORY FAILURE WITH HYPOXIA Status: Acute Plan: Continue O2 @ 15L/min, titrate to clinical response (2) COVID-19 Code(s): U07.1 - COVID-19 Status: Acute Plan: Resp isolation, Doxycycline/Albuterol/O2 support (3) Acute kidney injury Code(s): N17.9 - ACUTE KIDNEY FAILURE, UNSPECIFIED Status: Acute Plan: Improving, continue supportive mgmt (4) Severe sepsis with septic shock Code(s): A41.9 - SEPSIS, UNSPECIFIED ORGANISM; R65.21 - SEVERE SEPSIS WITH SEPTIC SHOCK Status: Acute (5) Hyperkalemia Code(s): E87.5 - HYPERKALEMIA Status: Acute (6) Cerebral palsy Code(s): G80.9 - CEREBRAL PALSY, UNSPECIFIED Status: Chronic Qualifiers: Cerebral palsy type: unspecified type Qualified Code(s): G80.9 - Cerebral palsy, unspecified - Plan manager social responsibility, respiratory therapy, DVT proph w/SCDs Continue supportive mgmt continue O2 via VM Continue Doxycycline/Albuterol Dobhoff feeding tube replaced, continue TF's with Nepro HD per Renal service Code status: DNAR AM lab: CRP, Ferritin, BMP
[2020-04-18] MEDS: Enoxaparin Sodium 30 MG/0.3 ML SYRINGE SC SCH (21:17)
[2020-04-18] MEDS: Acetaminophen 325 MG TAB PO PRN (21:33)
[2020-04-19] MEDS: Albuterol 200 PUFF (6.7GM INHALER) INH SCH ×4 (00:50→16:54)
[2020-04-19] MEDS: HumaLOG 300 UNITS/3 ML VIAL SC PRN ×3 (05:59→16:56)
[2020-04-19] MEDS: Acetaminophen 325 MG TAB PO PRN ×2 (06:07→16:52)
[2020-04-19 06:40] LABS: Anion Gap 14 mmol/L (10-20); BUN (Urea Nitrogen) 46 mg/dL (8.4-25.7); Calc. Creatinine Clearance 46 mL/min (70-130); Calcium 8.5 mg/dL (7.8-10.44); Carbon Dioxide 30 mmol/L (22-29); Chloride 106 mmol/L (98-107); Estimated GFR-MDRD 47; Glucose 197 mg/dL (70-105); Potassium 3.6 mmol/L (3.5-5.1); Sodium 146 mmol/L (136-145)
[2020-04-19] MEDS: Gabapentin 300 MG CAP PO SCH (08:12)
[2020-04-19] MEDS: Ferrous Sulfate 325 MG TAB PO SCH ×2 (08:12→16:52)
[2020-04-19] MEDS: Doxycycline 100 MG CAP PO SCH ×2 (08:12→20:18)
[2020-04-19] MEDS: Multivit, Therapeutic 1 TAB PO SCH (08:12)
[2020-04-19] MEDS: Polyethylene Glycol 3350 17 GM Packet PER TUBE SCH (08:12)
[2020-04-19] MEDS: HumuLIN 70/30 (300 UNITS/3 ML VIAL) SC SCH ×2 (08:13→20:19)
[2020-04-19] MEDS ORDERED: Magnesium Citrate 300 ML BOT PER TUBE SCH (08:30)
[2020-04-19] MEDS: Dextrose 5% in Water 1,000 ML IV SCH (11:06)
--- NOTE | 2020-04-19 11:42 | PRG ---
DATE OF SERVICE: 04/19/2020 SUBJECTIVE: The patient is on COVID isolation. OBJECTIVE: VITAL SIGNS: Temperature 97.5, pulse 90, respiratory rate 20, and blood pressure 125/76. LABORATORY DATA: Potassium 3.6, BUN is 46, and creatinine is 1.8. ASSESSMENT AND PLAN: 1. Acute kidney injury on chronic kidney disease, stage 3, stable. 2. Hypertension. 3. Edema. 4. Acute hypoxic respiratory failure. 5. Anemia of chronic disease. 6. Altered mentation, better. Labs are better. No acute indication for dialysis, but labs remained stable with good urine output. May be able to remove the dialysis catheter. We will follow. Job ID: [id number]
--- NOTE | 2020-04-19 14:51 | PDOC.HOSPP ---
- Subjective Encounter Date: 04/19/20 Encounter Time: 14:40 Subjective: f/u for COVID-19 PNA on 15L/min NRB. Receiving Doxycycline/Albuterol MDI. - Objective Vital Signs & Weight: Vital Signs (12 hours) Temp Pulse Ox 04/19/20 13:15 99.5 F 04/19/20 08:00 98.2 F 04/19/20 07:25 98 04/19/20 04:00 100.3 F H Weight Admit Weight 149 lb 7.574 oz Weight 162 lb 11.218 oz Most Recent Monitor Data Heart Rate from ECG 110 NIBP 109/79 NIBP BP-Mean 89 Respiration from ECG 26 SpO2 100 I&O: 04/18/20 04/19/20 04/20/20 06:59 06:59 06:59 Intake Total 2385 1455 30 Output Total 1800 2400 Balance 585 -945 30 Result Diagrams: 04/15/20 05:01 04/19/20 05:54 Additional Labs: Accuchecks 04/19/20 04/19/20 04/19/20 11:53 05:49 00:19 POC Glucose 183 H 203 H 141 H 04/18/20 04/18/20 04/18/20 21:30 17:53 14:54 POC Glucose 185 H 145 H 151 H 04/18/20 06:08 POC Glucose 154 H Microbiology 04/07/20 10:13 Venous blood - Right Arm Blood Culture - Final Coagulase Neg Staphylococcus Coagulase Neg Staphylococcus#2 04/07/20 10:12 Venous blood - Left Hand Blood Culture - Final NO GROWTH IN 5 DAYS 04/07/20 09:30 Urine parrish catheter Urine Culture - Final NO GROWTH AT 48 HOURS Laboratory Tests 04/07/20 04/12/20 04/15/20 09:30 10:35 05:01 Creatinine Ferritin C-Reactive Protein 10.60 H B-Natriuretic Peptide 57.6 165.0 H 04/15/20 04/17/20 04/17/20 05:01 03:30 03:30 Creatinine Ferritin 590.27 H 642.39 H C-Reactive Protein 15.00 H B-Natriuretic Peptide 04/18/20 04/19/20 04/19/20 02:10 05:54 05:54 Creatinine 1.88 H Ferritin 609.23 H C-Reactive Protein 25.05 H B-Natriuretic Peptide EKG Reviewed by me: Yes (Tele - Sinus tachycardia) Hospitalist ROS - Medication Medications: Active Medications Generic Name Dose Route Start Last Admin Trade Name Kevinq PRN Reason Stop Dose Admin Acetaminophen 650 mg 04/18/20 18:37 04/19/20 06:07 Tylenol PO 650 mg Q6H PRN Administration .FEVER Albuterol Sulfate 1 puff 04/07/20 19:00 04/19/20 13:33 Proventil Hfa INH Not Given [id number] KAYLYN Doxycycline Hyclate 100 mg 04/11/20 21:00 04/19/20 08:12 Vibramycin PO 04/21/20 21:01 100 mg BID KAYLYN Administration Enoxaparin Sodium 30 mg 04/14/20 21:00 04/18/20 21:17 Lovenox SC 30 mg 2100 KAYLYN Administration Ferrous Sulfate 325 mg 04/15/20 10:00 04/19/20 08:12 Feosol PO 325 mg 1000,1700 KAYLYN Administration Gabapentin 300 mg 04/15/20 09:00 04/19/20 08:12 Neurontin PO 300 mg DAILY KAYLYN Administration Dextrose/Water 1,000 mls @ 50 mls/hr 04/19/20 10:45 04/19/20 11:06 D5w IV 1,000 mls .Q20H KAYLYN Administration Insulin Human Isoph/Insulin Regular 15 units 04/18/20 21:00 04/19/20 08:13 Humulin 70/30 SC 15 unit BID KAYLYN Administration Insulin Human Lispro 0 units 04/07/20 15:52 04/19/20 11:38 Humalog SC 2 unit .MILD SLIDING SCALE PRN Administration Mild Correctional Scale Insulin Human Lispro 0 units 04/07/20 15:52 04/15/20 21:32 Humalog SC 2 unit .BEDTIME SLIDING SC PRN Administration Bedtime Correctional Scale Metoprolol Succinate 25 mg 04/15/20 09:00 04/19/20 08:12 Toprol Xl PO 25 mg QAM KAYLYN Administration Multivitamins 1 tab 04/15/20 09:00 04/19/20 08:12 Theragran PO 1 tab DAILY KAYLYN Administration Pantoprazole Sodium 40 mg 04/13/20 21:00 04/18/20 21:16 Protonix PO 40 mg 2100 KAYLYN Administration Polyethylene Glycol 17 gm 04/18/20 09:00 04/19/20 08:12 Miralax PER TUBE 17 gm DAILY KAYLYN Administration Sodium Chloride 10 ml 04/08/20 14:44 04/15/20 08:52 Flush - Normal Saline IVF 10 ml PRN PRN Administration Saline Flush - Exam Eye: PERRL, anicteric sclera ENT: normocephalic atraumatic, no oropharyngeal lesions Neck: supple, symmetric, no JVD, no thyromegaly, no lymphadenopathy Heart: no murmur, no rubs, normal peripheral pulses Heart - other findings: S1, S2 with tachycardia Respiratory: tachypneic Respiratory - other findings: diminished in bilat lemus Gastrointestinal: soft, non-tender, non-distended, normal bowel sounds, no palpable masses Extremities: no cyanosis, no clubbing, no edema Skin: normal turgor, no lesions Neurological: no new deficit Musculoskeletal: generalized weakness Psychiatric: oriented to person, somnolent, lethargic Hosp A/P (1) Acute respiratory failure with hypoxia Code(s): J96.01 - ACUTE RESPIRATORY FAILURE WITH HYPOXIA Status: Acute Plan: Continue NRB and wean as clinically indicated (2) COVID-19 Code(s): U07.1 - COVID-19 Status: Acute Plan: Continue supportive mgmt, start Pulmicort Neb 0.5mg inh BID (3) Acute kidney injury Code(s): N17.9 - ACUTE KIDNEY FAILURE, UNSPECIFIED Status: Acute Plan: Improving, continue current mgmt (4) Severe sepsis with septic shock Code(s): A41.9 - SEPSIS, UNSPECIFIED ORGANISM; R65.21 - SEVERE SEPSIS WITH SEPTIC SHOCK Status: Acute (5) Hyperkalemia Code(s): E87.5 - HYPERKALEMIA Status: Acute (6) Cerebral palsy Code(s): G80.9 - CEREBRAL PALSY, UNSPECIFIED Status: Chronic Qualifiers: Cerebral palsy type: unspecified type Qualified Code(s): G80.9 - Cerebral palsy, unspecified - 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
[2020-04-19] MEDS: Mometasone 100 MCG/PUFF (1 INHALER) INH SCH (16:52)
[2020-04-19] MEDS: Enoxaparin Sodium 30 MG/0.3 ML SYRINGE SC SCH (20:18)
[2020-04-20] MEDS: Acetaminophen 325 MG TAB PO PRN ×3 (00:20→20:51)
[2020-04-20] MEDS: HumaLOG 300 UNITS/3 ML VIAL SC PRN ×2 (00:27→06:32)
[2020-04-20] MEDS: Albuterol 200 PUFF (6.7GM INHALER) INH SCH ×3 (00:48→17:25)
[2020-04-20] MEDS: Dextrose 5% in Water 1,000 ML IV SCH ×2 (04:27→13:06)
[2020-04-20 05:23] LABS: Anion Gap 16 mmol/L (10-20); BUN (Urea Nitrogen) 40 mg/dL (8.4-25.7); Calc. Creatinine Clearance 52 mL/min (70-130); Calcium 8.9 mg/dL (7.8-10.44); Carbon Dioxide 29 mmol/L (22-29); Chloride 107 mmol/L (98-107); Estimated GFR-MDRD 55; Glucose 169 mg/dL (70-105); Potassium 3.1 mmol/L (3.5-5.1); Sodium 149 mmol/L (136-145)
[2020-04-20] MEDS: Mometasone 100 MCG/PUFF (1 INHALER) INH SCH (06:32)
[2020-04-20] MEDS: Polyethylene Glycol 3350 17 GM Packet PER TUBE SCH (08:28)
[2020-04-20] MEDS: Ferrous Sulfate 325 MG TAB PO SCH ×2 (08:29→17:24)
[2020-04-20] MEDS: Doxycycline 100 MG CAP PO SCH ×2 (08:29→20:32)
[2020-04-20] MEDS: Gabapentin 300 MG CAP PO SCH (08:30)
[2020-04-20] MEDS: Multivit, Therapeutic 1 TAB PO SCH (08:30)
[2020-04-20] MEDS: HumuLIN 70/30 (300 UNITS/3 ML VIAL) SC SCH ×2 (08:32→20:39)
[2020-04-20] MEDS ORDERED: Dextrose 5% in Water 1,000 ML IV SCH (10:32)
[2020-04-20] MEDS ORDERED: Potassium Chloride 20 MEQ TAB PO SCH (10:45)
--- NOTE | 2020-04-20 12:28 | PRG ---
DATE OF SERVICE: 04/20/2020 SUBJECTIVE: The patient is seen at the bedside, very lethargic. OBJECTIVE: GENERAL: This is a well-built male, very lethargic. VITAL SIGNS: Temperature 100.4, pulse 130, respiratory rate , blood pressure 134/84. Urine output 2400 over the last 48 hours. HEENT: Atraumatic, normocephalic. CV: S1 and S2 heard. RESPIRATORY: Clear. MUSCULOSKELETAL: No edema. DERMATOLOGIC: No skin rash. NEUROLOGIC: Lethargic. LABORATORY DATA: Potassium is 3.1, sodium 149, BUN is 40, creatinine is 1.57. ASSESSMENT AND PLAN: 1. Acute kidney injury on chronic kidney disease stage 3. Labs are better. We will monitor. 2. Hypokalemia. 3. Hypernatremia. Recommend free water. 4. Edema. 5. Altered mentation. 6. Anemia of chronic disease. 7. Renal function seems to be improving. If continues to improve, we will remove dialysis catheter tomorrow. Job ID: [id number]
--- NOTE | 2020-04-20 18:05 | PDOC.HOSPP ---
- Subjective Encounter Date: 04/20/20 Encounter Time: 18:05 Subjective: f/u for COVID-19 PNA on O2 @ 15L/min NRB receiving Doxycycline/Asmanex. Remains on high-flow O2 with fever spikes noted. - Objective Vital Signs & Weight: Vital Signs (12 hours) Pulse Ox 04/20/20 08:00 95 Weight Admit Weight 149 lb 7.574 oz Weight 158 lb 11.725 oz Most Recent Monitor Data Heart Rate from ECG 114 NIBP 142/87 NIBP BP-Mean 105 Respiration from ECG 28 SpO2 92 I&O: 04/19/20 04/20/20 04/21/20 06:59 06:59 06:59 Intake Total 1455 2250 30 Output Total 2400 2400 Balance -945 -150 30 Result Diagrams: 04/15/20 05:01 04/20/20 04:32 Additional Labs: Accuchecks 04/20/20 04/20/20 04/19/20 08:40 00:30 20:31 POC Glucose 217 H 180 H 205 H 04/19/20 17:01 POC Glucose 217 H Microbiology 04/07/20 10:13 Venous blood - Right Arm Blood Culture - Final Coagulase Neg Staphylococcus Coagulase Neg Staphylococcus#2 04/07/20 10:12 Venous blood - Left Hand Blood Culture - Final NO GROWTH IN 5 DAYS 04/07/20 09:30 Urine parrish catheter Urine Culture - Final NO GROWTH AT 48 HOURS Laboratory Tests 04/07/20 04/12/20 04/15/20 09:30 10:35 05:01 Creatinine Ferritin C-Reactive Protein 10.60 H B-Natriuretic Peptide 57.6 165.0 H 04/15/20 04/17/20 04/17/20 05:01 03:30 03:30 Creatinine Ferritin 590.27 H 642.39 H C-Reactive Protein 15.00 H B-Natriuretic Peptide 04/18/20 04/19/20 04/19/20 02:10 05:54 05:54 Creatinine 1.88 H Ferritin 609.23 H C-Reactive Protein 25.05 H B-Natriuretic Peptide EKG Reviewed by me: Yes (Tele - Sinus tachycardia in low-100's) Hospitalist ROS - Medication Medications: Active Medications Generic Name Dose Route Start Last Admin Trade Name Freq PRN Reason Stop Dose Admin Acetaminophen 650 mg 04/18/20 18:37 07/09/20 06:31 Tylenol PO 650 mg Q6H PRN Administration .FEVER Albuterol Sulfate 1 puff 04/07/20 19:00 04/20/20 17:25 Proventil Hfa INH Not Given [id number] KAYLYN Doxycycline Hyclate 100 mg 04/11/20 21:00 04/20/20 08:29 Vibramycin PO 04/21/20 21:01 100 mg BID KAYLYN Administration Enoxaparin Sodium 30 mg 04/14/20 21:00 04/19/20 20:18 Lovenox SC 30 mg 2100 KAYLYN Administration Ferrous Sulfate 325 mg 04/15/20 10:00 04/20/20 17:24 Feosol PO 325 mg 1000,1700 KAYLYN Administration Gabapentin 300 mg 04/15/20 09:00 04/20/20 08:30 Neurontin PO 300 mg DAILY KAYLYN Administration Dextrose/Water 1,000 mls @ 50 mls/hr 04/20/20 10:33 04/20/20 13:06 D5w IV Not Given .Q20H KAYLYN Insulin Human Isoph/Insulin Regular 15 units 04/18/20 21:00 04/20/20 08:32 Humulin 70/30 SC 15 unit BID KAYLYN Administration Insulin Human Lispro 0 units 04/07/20 15:52 04/20/20 06:32 Humalog SC 2 unit .MILD SLIDING SCALE PRN Administration Mild Correctional Scale Insulin Human Lispro 0 units 04/07/20 15:52 04/15/20 21:32 Humalog SC 2 unit .BEDTIME SLIDING SC PRN Administration Bedtime Correctional Scale Metoprolol Succinate 25 mg 04/15/20 09:00 04/20/20 08:30 Toprol Xl PO 25 mg QAM KAYLYN Administration Mometasone Furoate 200 mcg 04/19/20 18:30 04/20/20 06:32 Asmanex Hfa 100 Mcg INH 1 puff BID-RT KAYLYN Administration Multivitamins 1 tab 04/15/20 09:00 04/20/20 08:30 Theragran PO 1 tab DAILY KAYLYN Administration Pantoprazole Sodium 40 mg 04/13/20 21:00 04/19/20 20:18 Protonix PO 40 mg 2100 KAYLYN Administration Polyethylene Glycol 17 gm 04/18/20 09:00 04/20/20 08:28 Miralax PER TUBE 17 gm DAILY KAYLYN Administration Sodium Chloride 10 ml 04/08/20 14:44 04/15/20 08:52 Flush - Normal Saline IVF 10 ml PRN PRN Administration Saline Flush - Exam General Appearance: ill appearing General - other findings: resp distress with NRB in place Eye: PERRL, anicteric sclera ENT: normocephalic atraumatic, no oropharyngeal lesions Neck: supple, symmetric, no JVD, no thyromegaly, no lymphadenopathy Heart: no gallops, no rubs, normal peripheral pulses Heart - other findings: S1, S2 Respiratory - other findings: coarse sounds bilat, diminished in bases Gastrointestinal: soft, non-tender, non-distended, normal bowel sounds, no palpable masses Extremities: no cyanosis, no clubbing, no edema Skin: normal turgor Neurological: no new deficit Musculoskeletal: generalized weakness Psychiatric: oriented to person, flat affect, somnolent Hosp A/P (1) Acute respiratory failure with hypoxia Code(s): J96.01 - ACUTE RESPIRATORY FAILURE WITH HYPOXIA Status: Acute Plan: Persistent despite treatment, continue NRB @ 15L/min, sit upright, repeat PCXR today (2) COVID-19 Code(s): U07.1 - COVID-19 Status: Acute Plan: Supportive, O2, add SoluMedrol IV, Asmanex Inh (3) Acute kidney injury Code(s): N17.9 - ACUTE KIDNEY FAILURE, UNSPECIFIED Status: Acute Plan: Improved, continue low-volume IVF's (4) Severe sepsis with septic shock Code(s): A41.9 - SEPSIS, UNSPECIFIED ORGANISM; R65.21 - SEVERE SEPSIS WITH SEPTIC SHOCK Status: Acute (5) Hyperkalemia Code(s): E87.5 - HYPERKALEMIA Status: Acute (6) Cerebral palsy Code(s): G80.9 - CEREBRAL PALSY, UNSPECIFIED Status: Chronic Qualifiers: Cerebral palsy type: unspecified type Qualified Code(s): G80.9 - Cerebral palsy, unspecified - Plan plan discussed w/ family, continue antibiotics, social worker school, respiratory therapy, DVT proph w/SCDs Continue supportive mgmt continue O2 via VM Continue Doxycycline/Albuterol Add Solumedrol IV Continue Asmanex Dobhoff feeding tube replaced, continue TF's with Nepro HD per Renal service Code status: DNAR AM lab: BMP, CBC
[2020-04-20] MEDS: methylPREDNISolone Sod Succ 40 MG VIAL IVP SCH ×2 (18:33→23:46)
[2020-04-20] MEDS: Enoxaparin Sodium 30 MG/0.3 ML SYRINGE SC SCH (20:37)
--- NOTE | 2020-04-20 21:34 | RAD ---
Chest AP view INDICATION: History of Covid pneumonia COMPARISON: April 10, 2020 FINDINGS: Lungs: There is worsening bilateral airspace disease Cardiac silhouette: Cardiac silhouette is largely obscured Pulmonary vasculature: Not well seen Pleural spaces: No pleural effusion or pneumothorax is demonstrated. Upper abdomen: There is a feeding tube projecting below the left hemidiaphragm and beyond the field- of-view Osseous structures: No acute osseous abnormality. Additional findings: ACDF is unchanged. IMPRESSION: Worsening bilateral pneumonia. New feeding tube projecting below left hemidiaphragm and beyond the [id number].
[2020-04-21] MEDS ORDERED: Morphine 2 MG/ML VIAL SLOW IVP SCH (01:45)
[2020-04-21 04:33] LABS: Band 3 % (5-11); Hemoglobin 8.3 g/dL (14.0-18.0); Hypochromia SLIGHT = 6-15 cells (100X) (0-5/hpf); Lymphocytes 3 % (21-51); MDiff Complete? YES; Mean Corpuscular HGB CONC 30.5 g/dL (32.0-36.0); Mean Corpuscular Hemoglobin 25.2 pg (27.0-31.0); Mean Corpuscular Volume 82.5 fL (78.0-98.0); Mean Platelet Volume 9.8 fL (7.4-10.4); Monocytes 1 % (0-10); Neutrophil 93 % (42-75); Platelet Count 269 thou/uL (130-400); Platelet Morphology Comment Appears Adequate; RBC Distribution Width 14.1 % (11.5-14.5); White Blood Cell (WBC) Count 19.5 thou/uL (4.8-10.8)
[2020-04-21 04:47] LABS: Anion Gap 17 mmol/L (10-20); BUN (Urea Nitrogen) 45 mg/dL (8.4-25.7); Calc. Creatinine Clearance 52 mL/min (70-130); Calcium 8.7 mg/dL (7.8-10.44); Carbon Dioxide 29 mmol/L (22-29); Chloride 106 mmol/L (98-107); Estimated GFR-MDRD 54; Glucose 208 mg/dL (70-105); Potassium 3.7 mmol/L (3.5-5.1); Sodium 148 mmol/L (136-145)
[2020-04-21] MEDS: methylPREDNISolone Sod Succ 40 MG VIAL IVP SCH ×3 (06:08→18:14)
[2020-04-21] MEDS: HumaLOG 300 UNITS/3 ML VIAL SC PRN ×2 (06:16→21:01)
[2020-04-21] MEDS: Mometasone 100 MCG/PUFF (1 INHALER) INH SCH ×2 (09:41→23:52)
[2020-04-21] MEDS: Albuterol 200 PUFF (6.7GM INHALER) INH SCH ×3 (09:41→23:52)
[2020-04-21] MEDS: Multivit, Therapeutic 1 TAB PO SCH (09:42)
[2020-04-21] MEDS: Gabapentin 300 MG CAP PO SCH (09:42)
[2020-04-21] MEDS: HumuLIN 70/30 (300 UNITS/3 ML VIAL) SC SCH ×2 (09:43→20:35)
[2020-04-21] MEDS: Ferrous Sulfate 325 MG TAB PO SCH ×2 (09:43→18:05)
[2020-04-21] MEDS: Doxycycline 100 MG CAP PO SCH (09:43)
--- NOTE | 2020-04-21 11:01 | PRG ---
DATE OF SERVICE: 04/21/2020 SUBJECTIVE: The patient is on COVID isolation. OBJECTIVE: VITAL SIGNS: Temperature 97.1, pulse oxygen saturation 95% on 15 L Venturi mask. LABORATORY DATA: Potassium is 3.7, BUN is 45, and creatinine is 1.5. ASSESSMENT AND PLAN: 1. Acute kidney injury on chronic kidney disease, stage 3. Labs are better, but remains fluid overloaded and hypoxic. Plan is to have ultrafiltration if possible. 2. Hypokalemia. 3. Hypernatremia. 4. Edema. 5. Altered mentation. 6. Anemia of chronic disease. Plan to have ultrafiltration as tolerated. Job ID: [id number]
[2020-04-21] MEDS: Polyethylene Glycol 3350 17 GM Packet PER TUBE SCH (11:44)
[2020-04-21] MEDS ORDERED: Heparin 10,000 UNITS/ 10 ML VIAL ONE (12:50)
--- NOTE | 2020-04-21 16:39 | PDOC.HOSPP ---
- Subjective Encounter Date: 04/21/20 Encounter Time: 16:30 Subjective: f/u for COVID PNA, OMEGA requiring HD. Remains on 15L/min NRB receiving Solumedrol /Doxycycline/Albuterol/Dulera. - Objective Vital Signs & Weight: Vital Signs (12 hours) Pulse Ox 04/21/20 08:00 92 L Weight Admit Weight 149 lb 7.574 oz Weight 153 lb 10.595 oz Most Recent Monitor Data Heart Rate from ECG 122 NIBP 166/98 NIBP BP-Mean 120 Respiration from ECG 29 SpO2 91 I&O: 04/20/20 04/21/20 04/22/20 06:59 06:59 06:59 Intake Total 2250 2470 30 Output Total 2400 1650 Balance -150 820 30 Result Diagrams: 04/21/20 04:04 04/21/20 04:04 Additional Labs: Accuchecks 04/21/20 04/21/20 04/20/20 10:03 06:19 23:27 POC Glucose 249 H 239 H 158 H 04/20/20 04/20/20 20:51 06:39 POC Glucose 135 H 186 H Microbiology 04/07/20 10:13 Venous blood - Right Arm Blood Culture - Final Coagulase Neg Staphylococcus Coagulase Neg Staphylococcus#2 04/07/20 10:12 Venous blood - Left Hand Blood Culture - Final NO GROWTH IN 5 DAYS 04/07/20 09:30 Urine parrish catheter Urine Culture - Final NO GROWTH AT 48 HOURS Laboratory Tests 04/07/20 04/12/20 04/15/20 09:30 10:35 05:01 Creatinine Ferritin C-Reactive Protein 10.60 H B-Natriuretic Peptide 57.6 165.0 H 04/15/20 04/17/20 04/17/20 05:01 03:30 03:30 Creatinine Ferritin 590.27 H 642.39 H C-Reactive Protein 15.00 H B-Natriuretic Peptide 04/18/20 04/19/20 04/19/20 02:10 05:54 05:54 Creatinine 1.88 H Ferritin 609.23 H C-Reactive Protein 25.05 H B-Natriuretic Peptide EKG Reviewed by me: Yes (Tele - sinus tachycardia) Hospitalist ROS - Medication Medications: Active Medications Generic Name Dose Route Start Last Admin Trade Name Freq PRN Reason Stop Dose Admin Acetaminophen 650 mg 04/18/20 18:37 04/20/20 20:51 Tylenol PO 650 mg Q6H PRN Administration .FEVER Albuterol Sulfate 1 puff 04/07/20 19:00 04/21/20 09:41 Proventil Hfa INH Not Given [id number] [facility] Cyclobenzaprine HCl 10 mg 04/14/20 19:51 04/20/20 20:58 Flexeril PO 10 mg TIDPRN PRN Administration . Doxycycline Hyclate 100 mg 04/11/20 21:00 04/21/20 09:43 Vibramycin PO 04/21/20 21:01 100 mg BID KAYLYN Administration Enoxaparin Sodium 30 mg 04/14/20 21:00 04/20/20 20:37 Lovenox SC 30 mg 2100 KAYLYN Administration Ferrous Sulfate 325 mg 04/15/20 10:00 04/21/20 09:43 Feosol PO 325 mg 1000,1700 KAYLYN Administration Gabapentin 300 mg 04/15/20 09:00 04/21/20 09:42 Neurontin PO 300 mg DAILY KAYLYN Administration Dextrose/Water 1,000 mls @ 50 mls/hr 04/20/20 10:33 04/20/20 13:06 D5w IV Not Given .Q20H KAYLYN Insulin Human Isoph/Insulin Regular 15 units 04/18/20 21:00 04/21/20 09:43 Humulin 70/30 SC 15 unit BID KAYLYN Administration Insulin Human Lispro 0 units 04/07/20 15:52 04/21/20 06:16 Humalog SC 3 unit .MILD SLIDING SCALE PRN Administration Mild Correctional Scale Insulin Human Lispro 0 units 04/07/20 15:52 04/15/20 21:32 Humalog SC 2 unit .BEDTIME SLIDING SC PRN Administration Bedtime Correctional Scale Methylprednisolone Sodium Succinate 40 mg 04/20/20 18:00 04/21/20 12:53 Solu-Medrol IVP 40 mg Q6HR KAYLYN Administration Metoprolol Succinate 25 mg 04/15/20 09:00 04/21/20 09:42 Toprol Xl PO 25 mg QAM KAYLYN Administration Mometasone Furoate 200 mcg 04/19/20 18:30 04/21/20 09:41 Asmanex Hfa 100 Mcg INH Not Given BID-RT [facility] Multivitamins 1 tab 04/15/20 09:00 04/21/20 09:42 Theragran PO 1 tab DAILY KAYLYN Administration Pantoprazole Sodium 40 mg 04/13/20 21:00 04/20/20 20:32 Protonix PO 40 mg 2100 KAYLYN Administration Polyethylene Glycol 17 gm 04/18/20 09:00 04/21/20 11:44 Miralax PER TUBE Not Given DAILY KAYLYN Sodium Chloride 10 ml 04/08/20 14:44 04/15/20 08:52 Flush - Normal Saline IVF 10 ml PRN PRN Administration Saline Flush - Exam General Appearance: ill appearing Eye: PERRL, anicteric sclera ENT: normocephalic atraumatic, no oropharyngeal lesions Neck: supple, symmetric, no JVD, no thyromegaly, no lymphadenopathy Heart: no gallops, no rubs, normal peripheral pulses Heart - other findings: S1, S2 with tachycardia Respiratory: tachypneic Respiratory - other findings: diminished bilat, scattered coarse sounds Gastrointestinal: soft, non-tender, non-distended, normal bowel sounds, no palpable masses Extremities: no cyanosis, no clubbing, 1+ LE edema Skin: normal turgor Neurological: cranial nerve grossly intact, no new deficit Musculoskeletal: generalized weakness Psychiatric: oriented to person, oriented to place, somnolent Hosp A/P (1) Acute respiratory failure with hypoxia Code(s): J96.01 - ACUTE RESPIRATORY FAILURE WITH HYPOXIA Status: Acute Plan: Persistent high-O2 requirement, continue NRB, pulmonary support, wean as clinically indicated (2) COVID-19 Code(s): U07.1 - COVID-19 Status: Acute Plan: Continue supportive mgmt, Albuterol/Doxycycline/Solumedrol/O2 support, consult ID today for any further recommendations (3) Acute kidney injury Code(s): N17.9 - ACUTE KIDNEY FAILURE, UNSPECIFIED Status: Acute Plan: Slow improvement, volume up over last 24-48h, HD today (4) Severe sepsis with septic shock Code(s): A41.9 - SEPSIS, UNSPECIFIED ORGANISM; R65.21 - SEVERE SEPSIS WITH SEPTIC SHOCK Status: Acute (5) Hyperkalemia Code(s): E87.5 - HYPERKALEMIA Status: Acute (6) Cerebral palsy Code(s): G80.9 - CEREBRAL PALSY, UNSPECIFIED Status: Chronic Qualifiers: Cerebral palsy type: unspecified type Qualified Code(s): G80.9 - Cerebral palsy, unspecified - Plan continue antibiotics, PT/OT, social services counselor, speech therapy, respiratory therapy, DVT proph w/SCDs Continue supportive mgmt continue O2 via VM Continue Doxycycline/Albuterol Add Solumedrol IV Continue Asmanex Dobhoff feeding tube replaced, continue TF's with Nepro HD per Renal service Code status: DNAR AM lab: BMP, CBC
[2020-04-21] MEDS ORDERED: Vancomycin HCl 1.75 GM in Sodium Chloride 0.9% 500 ML IVPB SCH (18:00)
[2020-04-21] MEDS: Morphine 2 MG/ML VIAL SLOW IVP PRN (19:10)
--- NOTE | 2020-04-21 19:16 | CON ---
DATE OF CONSULTATION: 04/21/2020 REASON FOR CONSULTATION: COVID pneumonia with 15th day of illness and worsening hypoxemia. HISTORY OF PRESENT ILLNESS: A 59-year-old with history of cerebral palsy, hypertension, type 2 diabetes, and hyperlipidemia, who is a resident at [facility] and was brought in on April 07 with respiratory distress. He was a known COVID-19 positive before, so this is actually a disease that is probably is more than 2 weeks duration. On arrival, BP 150/114, pulse 121, and O2 saturations are 100 on 2 L, and he appeared uncomfortable and confused. His respiratory exam showed bilateral rhonchi diffusely distributed. Heart exam with tachycardia. Initial white cell count is 14.7 and hemoglobin was 15.2, and platelets 176, 000. He had 30% bands. Initial pH was 7.05, pCO2 was 11, and pO2 was 103. Initial creatinine was 9.18 and bilirubin was 0.3. The CRP was 10.6, AST 96, ALT of 73 , and alkaline phosphatase 108. Hepatitis serology was negative except for hepatitis B core total antibody. He was given Zosyn, azithromycin, inhalers, bicarbonate, insulin, and methylprednisolone. He was made a DNAR due to futility. This was changed to full code again when he improved somewhat. He was not a candidate for Remdesivir due to his renal function. Initial chest x-ray with possible right lower lobe infiltrate. Infiltrates became bilateral in the third day. The last x-ray from yesterday showed worsening bilateral infiltrates. His O2 saturations started at 93 and it went up to 96 range and now they have come down a bit to 92. The flow rate was started at 60 with a high-flow nasal cannula was switched to nasal cannula only and now is in the Venturi mask with a flow rate of 15 L/minute. He is awake. He does not establish eye contact. Does not interact with the examiner. He is tachypneic with labored breathing. According to the nurse, there has been no diarrhea. PAST MEDICAL HISTORY: Includes cerebral palsy, hypertension, migraines, type 2 diabetes, hyperlipidemia, and GERD. PAST SURGICAL HISTORY: Laminectomy, tendon release, bilateral Achilles heel, lengthening of both legs, left shoulder surgery, and neck surgery. SOCIAL HISTORY: Resident of [facility]. No smoking history. ALLERGIES: NONE. CURRENT MEDICATIONS: 1. Proventil. 2. Dulcolax. 3. Flexeril. 4. Dextrose. 5. Vibramycin. 6. Lovenox. 7. Feosol. 8. Neurontin. 9. Insulin. 10. Medrol. 11. Multivitamins. 12. Ondansetron. PHYSICAL EXAMINATION: VITAL SIGNS: Still is having worsening temperature elevation and BP 160/98 and pulse 120. SKIN: The patient has a triple-lumen Trialysis catheter in the left groin area. He think this has been there for the past few days probably 10 days or so approximately maybe longer. No lymphadenopathy. HEENT: His ocular movements are conjugate. Oral cavity with a few remaining teeth in place. NECK: Supple. LUNGS: With coarse breath sounds with rhonchi bilaterally. A few crackles at the left base. HEART: S1 and S2. Regular rate without murmurs. ABDOMEN: Not distended or tender. No ascites, but he is using his abdominal musculature for breathing. He has an indwelling Dorantes catheter. He has had negative balance for the past 2 days. His output has been quite marked output of at least 1600 up to 2400 mL. EXTREMITIES: He seems to move extremities, but does not follow commands very well. LABORATORY DATA: White cell count is up to 19,000, hemoglobin 8.3, platelets 269, and 93% neutrophils. Chemistry with creatinine 1.59, which is marked improvement from the original findings. Urinalysis 0 to 3 wbc's. Microbiology, coag- negative staph in venous sample, probably contaminant. Two different coag-negative staphylococci identified in only one set of blood cultures from 04/07, but no recent cultures were obtained. ASSESSMENT: 1. Cerebral palsy, COVID pneumonia probably 20 days old pneumonia. For count from the day of testing, this is the 15th day, but he had been already symptomatic prior to that, so probably in the 18th to 20th day of illness. 2. Worsening improvement and then deterioration of the respiratory status with requirement for higher flow rates with worsening infiltrates. 3. Acute renal failure with marked improvement. DISCUSSION: Differential diagnosis includes nosocomial infection as the more likely scenario here for example, groin catheter infection would be high in the differential diagnosis and I would encourage removal of the catheter since does not look like he is going to require for dialysis any longer. I would replace that with a different access may be a PICC line or a midline. The other possibility would be bacterial pneumonia via aspiration route. An intraabdominal inflammatory process appears to be less likely, but not completely ruled out. We will repeat his liver function tests, order blood cultures x2 and add vancomycin and meropenem. Discontinue remainder of antimicrobials. May consider adding antifungal therapy as well in view of the long-term corticosteroids with Diflucan for possible Karen infection. Job ID: [id number] [facility]
[2020-04-21] MEDS: Enoxaparin Sodium 30 MG/0.3 ML SYRINGE SC SCH (20:37)
[2020-04-21] MEDS: MEROPENEM 1 GM/50 ML 1 GM in Premix Bag 1 BAG IVPB SCH (20:44)
[2020-04-21] MEDS: Fluconazole In NaCl,Iso-Osm 400 MG in Premix Bag 1 BAG IVPB SCH (20:44)
[2020-04-21] MEDS ORDERED: Meropenem 1 GM in Sodium Chloride 0.9% 100 ML IVPB SCH (21:00)
[2020-04-21] MEDS: Dextrose 5% in Water 1,000 ML IV SCH (23:54)
[2020-04-22] MEDS: methylPREDNISolone Sod Succ 40 MG VIAL IVP SCH ×5 (00:06→23:25)
[2020-04-22] MEDS: HumaLOG 300 UNITS/3 ML VIAL SC PRN ×5 (00:15→23:29)
[2020-04-22] MEDS: Albuterol 200 PUFF (6.7GM INHALER) INH SCH ×3 (06:48→17:23)
[2020-04-22] MEDS: Multivit, Therapeutic 1 TAB PO SCH (09:44)
[2020-04-22] MEDS: Gabapentin 300 MG CAP PO SCH (09:44)
[2020-04-22] MEDS: Polyethylene Glycol 3350 17 GM Packet PER TUBE SCH (09:44)
[2020-04-22] MEDS: Ferrous Sulfate 325 MG TAB PO SCH ×2 (09:44→17:23)
[2020-04-22] MEDS: MEROPENEM 1 GM/50 ML 1 GM in Premix Bag 1 BAG IVPB SCH ×2 (09:44→20:45)
[2020-04-22] MEDS: Mometasone 100 MCG/PUFF (1 INHALER) INH SCH (09:45)
[2020-04-22] MEDS: HumuLIN 70/30 (300 UNITS/3 ML VIAL) SC SCH ×2 (09:46→20:47)
--- NOTE | 2020-04-22 13:07 | PRG ---
DATE OF SERVICE: 04/22/2020 SUBJECTIVE: The patient is on COVID isolation. OBJECTIVE: VITAL SIGNS: Temperature 97.1, pulse 128, respiratory rate 41, blood pressure 124/84. LABORATORY DATA: Not done today. ASSESSMENT AND PLAN: 1. Acute kidney injury on chronic kidney disease, stage 3, was dialysis dependent, but making good amount of urine. Monitor urine output closely. Yesterday, he made 1700 mL of urine. No labs today. We will recheck labs tomorrow and daily for next few days. 2. Hypokalemia, replaced, monitor. 3. . 4. Edema. 5. Altered mentation. 6. Anemia of chronic disease. We will stop IV fluids. Yesterday, he had dialysis for ultrafiltration. Plan to hold dialysis and monitor labs closely. Making good amount of urine. We will follow. Avoid nephrotoxins. Job ID: [id number]
--- NOTE | 2020-04-22 13:16 | PDOC.HOSPP ---
- Subjective Encounter Date: 04/22/20 Subjective: since pt on COVID isolation and renal has seen him, i followed peripherally for today. renal, ID note reviewed. on vent mask w.. Fio2 of 50%, sating 88%. - Objective Vital Signs & Weight: Vital Signs (12 hours) Pulse Ox 04/22/20 08:00 88 L Weight Admit Weight 149 lb 7.574 oz Weight 154 lb 1.65 oz Most Recent Monitor Data Heart Rate from ECG 128 NIBP 125/84 NIBP BP-Mean 97 Respiration from ECG 41 SpO2 87 I&O: 04/21/20 04/22/20 04/23/20 06:59 06:59 06:59 Intake Total 2470 2470 Output Total 1650 1700 Balance 820 770 Result Diagrams: 04/21/20 04:04 04/21/20 04:04 Additional Labs: Accuchecks 04/22/20 04/22/20 04/21/20 06:18 00:17 20:57 POC Glucose 273 H 280 H 302 H Hospitalist ROS - Medication Medications: Active Medications Generic Name Dose Route Start Last Admin Trade Name Freq PRN Reason Stop Dose Admin Acetaminophen 650 mg 04/18/20 18:37 04/20/20 20:51 Tylenol PO 650 mg Q6H PRN Administration .FEVER Albuterol Sulfate 1 puff 04/07/20 19:00 04/22/20 09:45 Proventil Hfa INH 1 puff [id number] KAYLYN Administration Cyclobenzaprine HCl 10 mg 04/14/20 19:51 04/20/20 20:58 Flexeril PO 10 mg TIDPRN PRN Administration . Enoxaparin Sodium 30 mg 04/14/20 21:00 04/21/20 20:37 Lovenox SC 30 mg 2100 KAYLYN Administration Ferrous Sulfate 325 mg 04/15/20 10:00 04/22/20 09:44 Feosol PO 325 mg 1000,1700 KAYLYN Administration Gabapentin 300 mg 04/15/20 09:00 04/22/20 09:44 Neurontin PO 300 mg DAILY KAYLYN Administration Fluconazole/Sodium Chloride 200 mls @ 100 mls/hr 04/21/20 22:00 04/21/20 20: 44 400 mg/ Device IVPB 200 mls 2200 KAYLYN Administration Meropenem 1 gm/ Device 50 mls @ 200 mls/hr 04/21/20 21:00 04/22/20 09:44 IVPB 50 mls Q12HR KAYLYN Administration Insulin Human Isoph/Insulin Regular 15 units 04/18/20 21:00 04/22/20 09:46 Humulin 70/30 SC 15 unit BID KAYLYN Administration Insulin Human Lispro 0 units 04/07/20 15:52 04/22/20 06:14 Humalog SC 4 unit .MILD SLIDING SCALE PRN Administration Mild Correctional Scale Insulin Human Lispro 0 units 04/07/20 15:52 04/22/20 00:23 Humalog SC 3 unit .BEDTIME SLIDING SC PRN Administration Bedtime Correctional Scale Methylprednisolone Sodium Succinate 40 mg 04/20/20 18:00 04/22/20 12:13 Solu-Medrol IVP 40 mg Q6HR KAYLYN Administration Metoprolol Succinate 25 mg 04/15/20 09:00 04/22/20 09:44 Toprol Xl PO 25 mg QAM KAYLYN Administration Mometasone Furoate 200 mcg 04/19/20 18:30 04/22/20 09:45 Asmanex Hfa 100 Mcg INH 1 puff BID-RT KAYLYN Administration Morphine Sulfate 2 mg 04/21/20 18:53 04/21/20 19:10 Morphine SLOW IVP 2 mg Q4H PRN Administration Pain Multivitamins 1 tab 04/15/20 09:00 04/22/20 09:44 Theragran PO 1 tab DAILY KAYLYN Administration Pantoprazole Sodium 40 mg 04/13/20 21:00 04/21/20 20:34 Protonix PO 40 mg 2100 KAYLYN Administration Polyethylene Glycol 17 gm 04/18/20 09:00 04/22/20 09:44 Miralax PER TUBE 17 gm DAILY KAYLYN Administration Sodium Chloride 10 ml 04/08/20 14:44 04/15/20 08:52 Flush - Normal Saline IVF 10 ml PRN PRN Administration Saline Flush Hosp A/P - Plan (1) Acute respiratory failure with hypoxia Code(s): J96.01 - ACUTE RESPIRATORY FAILURE WITH HYPOXIA Status: Acute Plan: Persistent high-O2 requirement, continue NRB, pulmonary support, wean as clinically indicated (2) COVID-19 Code(s): U07.1 - COVID-19 Status: Acute Plan: Continue supportive mgmt, Albuterol/Doxycycline/Solumedrol/O2 support, -it appears that sicne onset of sxs likely 15 to 20 days. -worsening resp..condition requiring high flow O2. (3) Acute kidney injury Code(s): N17.9 - ACUTE KIDNEY FAILURE, UNSPECIFIED Status: Acute Plan: -good urine output y'day - so dialysis on hold (1) Acute respiratory failure with hypoxia Code(s): J96.01 - ACUTE RESPIRATORY FAILURE WITH HYPOXIA Status: Acute Plan: Persistent high-O2 requirement, continue NRB, pulmonary support, wean as clinically indicated (2) COVID-19 Code(s): U07.1 - COVID-19 Status: Acute Plan: Continue supportive mgmt, Albuterol/Doxycycline/Solumedrol/O2 support, consult ID today for any further recommendations (3) Acute kidney injury Code(s): N17.9 - ACUTE KIDNEY FAILURE, UNSPECIFIED Status: Acute Plan: -he is voiding, w.. good output yda;y - HD on hold - if he did improve, femoral cath to be removed. (4) Severe sepsis with septic shock Code(s): A41.9 - SEPSIS, UNSPECIFIED ORGANISM; R65.21 - SEVERE SEPSIS WITH SEPTIC SHOCK Status: Acute -coag neg staph on -rept bl virgil of 04/21- no growth - on vanc and merum (5) Hyperkalemia Code(s): E87.5 - HYPERKALEMIA Status: Acute (6) Cerebral palsy Code(s): G80.9 - CEREBRAL PALSY, UNSPECIFIED Status: Chronic Qualifiers: Cerebral palsy type: unspecified type Qualified Code(s): G80.9 - Cerebral palsy, unspecified continue TF's with Nepro HD per Renal service DNAR.
[2020-04-22] MEDS: Vancomycin 1.5 GRAM/300 ML BAG 1.5 GM in Premix Bag 1 BAG IVPB SCH (17:24)
[2020-04-22] MEDS: Fluconazole In NaCl,Iso-Osm 400 MG in Premix Bag 1 BAG IVPB SCH (20:46)
[2020-04-22] MEDS: Enoxaparin Sodium 30 MG/0.3 ML SYRINGE SC SCH (20:47)
[2020-04-23 04:34] LABS: Anion Gap 17 mmol/L (10-20); BUN (Urea Nitrogen) 88 mg/dL (8.4-25.7); Calc. Creatinine Clearance 45 mL/min (70-130); Calcium 7.6 mg/dL (7.8-10.44); Carbon Dioxide 30 mmol/L (22-29); Chloride 115 mmol/L (98-107); Estimated GFR-MDRD 48; Glucose 224 mg/dL (70-105); Potassium 3.4 mmol/L (3.5-5.1); Sodium 159 mmol/L (136-145)
[2020-04-23] MEDS: methylPREDNISolone Sod Succ 40 MG VIAL IVP SCH ×3 (06:12→16:52)
[2020-04-23] MEDS: Albuterol 200 PUFF (6.7GM INHALER) INH SCH ×4 (06:14→20:25)
[2020-04-23] MEDS: Mometasone 100 MCG/PUFF (1 INHALER) INH SCH (06:14)
[2020-04-23] MEDS: HumaLOG 300 UNITS/3 ML VIAL SC PRN ×2 (06:20→20:26)
[2020-04-23] MEDS: Multivit, Therapeutic 1 TAB PO SCH (08:59)
[2020-04-23] MEDS: Ferrous Sulfate 325 MG TAB PO SCH ×2 (08:59→16:52)
[2020-04-23] MEDS: Gabapentin 300 MG CAP PO SCH (08:59)
[2020-04-23] MEDS: MEROPENEM 1 GM/50 ML 1 GM in Premix Bag 1 BAG IVPB SCH ×2 (08:59→20:23)
[2020-04-23] MEDS: Polyethylene Glycol 3350 17 GM Packet PER TUBE SCH (09:00)
[2020-04-23] MEDS: HumuLIN 70/30 (300 UNITS/3 ML VIAL) SC SCH ×2 (09:00→20:25)
--- NOTE | 2020-04-23 12:50 | PRG ---
DATE OF SERVICE: 04/23/2020 SUBJECTIVE: The patient is on COVID isolation. OBJECTIVE: VITAL SIGNS: Temperature 98.1, pulse , and blood pressure 132/83. LABORATORY DATA: Sodium 159, potassium 3.4, bicarb is 30, chloride is 115, and creatinine is 1.7. ASSESSMENT AND PLAN: 1. Acute kidney injury on chronic kidney disease, stage 3 with worsening labs. The patient is able to talk with the bedside nurse. The patient is not having good p.o. intake. Plan is to start on free water. 2. Hypernatremia. 3. Hyperchloremia. 4. Hypokalemia. 5. Alkalosis. 6. Altered mentation. 7. Anemia of chronic disease. Labs, not good. The patient is apparently not doing well either. Prognosis is poor. No acute indication for dialysis. Okay to remove dialysis catheter. He needs dialysis, might need a new access placed anyway. Continue free water as tolerated. Monitor labs closely and avoid nephrotoxins. Continue supportive care. Job ID: [id number]
--- NOTE | 2020-04-23 14:59 | PDOC.HOSPP ---
- Subjective Encounter Date: 04/23/20 Subjective: COVID isolation. following peripherally. - Objective Vital Signs & Weight: Vital Signs (12 hours) Pulse Ox 04/23/20 08:00 91 L Weight Admit Weight 149 lb 7.574 oz Weight 149 lb 14.629 oz Most Recent Monitor Data Heart Rate from ECG 134 NIBP 130/96 NIBP BP-Mean 107 Respiration from ECG 32 SpO2 95 I&O: 04/22/20 04/23/20 04/24/20 06:59 06:59 06:59 Intake Total 2470 1920 30 Output Total 1700 2500 Balance 770 -580 30 Result Diagrams: 04/21/20 04:04 04/23/20 04:00 Additional Labs: Accuchecks 04/23/20 04/22/20 04/22/20 06:23 23:32 21:03 POC Glucose 261 H 284 H 321 H 04/22/20 17:57 POC Glucose 316 H Hospitalist ROS - Medication Medications: Active Medications Generic Name Dose Route Start Last Admin Trade Name Freq PRN Reason Stop Dose Admin Acetaminophen 650 mg 04/18/20 18:37 04/20/20 20:51 Tylenol PO 650 mg Q6H PRN Administration .FEVER Albuterol Sulfate 1 puff 04/07/20 19:00 04/23/20 13:15 Proventil Hfa INH 1 puff [id number] KAYLYN Administration Cyclobenzaprine HCl 10 mg 04/14/20 19:51 04/20/20 20:58 Flexeril PO 10 mg TIDPRN PRN Administration . Enoxaparin Sodium 30 mg 04/14/20 21:00 04/22/20 20:47 Lovenox SC 30 mg 2100 KAYLYN Administration Ferrous Sulfate 325 mg 04/15/20 10:00 04/23/20 08:59 Feosol PO 325 mg 1000,1700 KAYLYN Administration Gabapentin 300 mg 04/15/20 09:00 04/23/20 08:59 Neurontin PO 300 mg DAILY KAYLYN Administration Fluconazole/Sodium Chloride 200 mls @ 100 mls/hr 04/21/20 22:00 04/22/20 20: 46 400 mg/ Device IVPB 200 mls 2200 KAYLYN Administration Vancomycin HCl 1.5 gm/ Device 300 mls @ 166.67 mls/hr 04/22/20 18:00 17:24 IVPB 300 mls 1800 KAYLYN Administration Meropenem 1 gm/ Device 50 mls @ 200 mls/hr 04/21/20 21:00 04/23/20 08:59 IVPB 50 mls Q12HR KAYLYN Administration Insulin Human Isoph/Insulin Regular 15 units 04/18/20 21:00 04/23/20 09:00 Humulin 70/30 SC 15 unit BID KAYLYN Administration Insulin Human Lispro 0 units 04/07/20 15:52 04/23/20 06:20 Humalog SC 4 unit .MILD SLIDING SCALE PRN Administration Mild Correctional Scale Insulin Human Lispro 0 units 04/07/20 15:52 04/22/20 00:23 Humalog SC 3 unit .BEDTIME SLIDING SC PRN Administration Bedtime Correctional Scale Methylprednisolone Sodium Succinate 40 mg 04/20/20 18:00 04/23/20 13:15 Solu-Medrol IVP 40 mg Q6HR KAYLYN Administration Metoprolol Succinate 25 mg 04/15/20 09:00 04/23/20 08:59 Toprol Xl PO 25 mg QAM KAYLYN Administration Mometasone Furoate 200 mcg 04/19/20 18:30 04/23/20 06:14 Asmanex Hfa 100 Mcg INH Not Given BID-RT KAYLYN Morphine Sulfate 2 mg 04/21/20 18:53 04/21/20 19:10 Morphine SLOW IVP 2 mg Q4H PRN Administration Pain Multivitamins 1 tab 04/15/20 09:00 04/23/20 08:59 Theragran PO 1 tab DAILY KAYLYN Administration Pantoprazole Sodium 40 mg 04/13/20 21:00 04/22/20 20:47 Protonix PO 40 mg 2100 KAYLYN Administration Polyethylene Glycol 17 gm 04/18/20 09:00 04/23/20 09:00 Miralax PER TUBE 17 gm DAILY KAYLYN Administration Sodium Chloride 10 ml 04/08/20 14:44 04/15/20 08:52 Flush - Normal Saline IVF 10 ml PRN PRN Administration Saline Flush Hosp A/P - Plan (1) Acute respiratory failure with hypoxia Code(s): J96.01 - ACUTE RESPIRATORY FAILURE WITH HYPOXIA Status: Acute Plan: Persistent high-O2 requirement, continue NRB, pulmonary support, wean as clinically indicated (2) COVID-19 Code(s): U07.1 - COVID-19 Status: Acute Plan: Continue supportive mgmt, Albuterol/Doxycycline/Solumedrol/O2 support, -it appears that sicne onset of sxs likely 15 to 20 days. -worsening resp..condition requiring high flow O2. (3) Acute kidney injury Code(s): N17.9 - ACUTE KIDNEY FAILURE, UNSPECIFIED Status: Acute Plan: -good urine output y'day - so dialysis on hold (1) Acute respiratory failure with hypoxia Code(s): J96.01 - ACUTE RESPIRATORY FAILURE WITH HYPOXIA Status: Acute Plan: Persistent high-O2 requirement, continue NRB, pulmonary support, wean as clinically indicated (2) COVID-19 Code(s): U07.1 - COVID-19 Status: Acute Plan: Continue supportive mgmt, Albuterol/Doxycycline/Solumedrol/O2 support, consult ID today for any further recommendations (3) Acute kidney injury Code(s): N17.9 - ACUTE KIDNEY FAILURE, UNSPECIFIED Status: Acute Plan: -he is voiding, w.. good output yda;y - HD on hold - if he did improve, femoral cath to be removed. (4) Severe sepsis with septic shock Code(s): A41.9 - SEPSIS, UNSPECIFIED ORGANISM; R65.21 - SEVERE SEPSIS WITH SEPTIC SHOCK Status: Acute -coag neg staph on -rept bl virgil of 04/21- no growth - on vanc and merum (5) Hyperkalemia Code(s): E87.5 - HYPERKALEMIA Status: Acute (6) Cerebral palsy Code(s): G80.9 - CEREBRAL PALSY, UNSPECIFIED Status: Chronic Qualifiers: Cerebral palsy type: unspecified type Qualified Code(s): G80.9 - Cerebral palsy, unspecified continue TF's with Nepro HD per Renal service COVID isolation. following peripherally. DNAR.
[2020-04-23 17:31] LABS: Vancomycin, Trough 18.3 ug/mL
--- NOTE | 2020-04-23 18:10 | PRG ---
DATE OF SERVICE: 04/23/2020 SUBJECTIVE: He is sitting in a neuro chair. He will establish eye contact briefly, but he has somewhat labored breathing, is quadriparetic. OBJECTIVE: VITAL SIGNS: T-max 102 on the , now he is 98.1. He had been afebrile since yesterday. O2 saturations are 91% to 94%, he is on high-flow at 60. Blood pressure 130/96. SKIN: Not particularly remarkable except for a central line in the left groin, which is a Trialysis catheter. HEENT: Ocular movements are conjugate. Sclerae are white. LUNGS: Fairly clear breath sounds. HEART: S1 and S2. ABDOMEN: Soft, not distended, and has an indwelling Dorantes catheter. His output in the Dorantes is pretty good, it is actually excellent at 2500. LABORATORY DATA: His creatinine is 1.78, potassium 3.4. ASSESSMENT AND DISCUSSION: Cerebral palsy, COVID pneumonia now probably resolved, and fever most likely due to infection of the groin catheter. Broad-spectrum coverage seems to have led to improvement in temperature curve and I would encourage removal of the catheter if feasible depending on decision making process regarding continuation of dialysis or not. Job ID: [id number]
[2020-04-23] MEDS: Dextrose 5% in Water 1,000 ML IV SCH (18:14)
[2020-04-23] MEDS: Vancomycin 1.5 GRAM/300 ML BAG 1.5 GM in Premix Bag 1 BAG IVPB SCH (18:27)
[2020-04-23] MEDS: Enoxaparin Sodium 30 MG/0.3 ML SYRINGE SC SCH (20:23)
[2020-04-23] MEDS: Fluconazole In NaCl,Iso-Osm 400 MG in Premix Bag 1 BAG IVPB SCH (22:29)
[2020-04-24] MEDS: methylPREDNISolone Sod Succ 40 MG VIAL IVP SCH ×3 (00:14→16:18)
[2020-04-24] MEDS: HumaLOG 300 UNITS/3 ML VIAL SC PRN ×7 (00:16→23:59)
[2020-04-24] MEDS: Albuterol 200 PUFF (6.7GM INHALER) INH SCH ×4 (00:50→20:32)
[2020-04-24] MEDS: Dextrose 5% in Water 1,000 ML IV SCH ×3 (05:48→21:32)
[2020-04-24 06:29] LABS: Anion Gap 18 mmol/L (10-20); BUN (Urea Nitrogen) 97 mg/dL (8.4-25.7); Calc. Creatinine Clearance 43 mL/min (70-130); Calcium 6.5 mg/dL (7.8-10.44); Carbon Dioxide 29 mmol/L (22-29); Chloride 121 mmol/L (98-107); Estimated GFR-MDRD 47; Glucose 484 mg/dL (70-105); Potassium 3.6 mmol/L (3.5-5.1); Sodium 164 mmol/L (136-145)
[2020-04-24] MEDS: MEROPENEM 1 GM/50 ML 1 GM in Premix Bag 1 BAG IVPB SCH ×2 (07:33→20:32)
[2020-04-24] MEDS: Multivit, Therapeutic 1 TAB PO SCH (07:33)
[2020-04-24] MEDS: Gabapentin 300 MG CAP PO SCH (07:33)
[2020-04-24] MEDS: HumuLIN 70/30 (300 UNITS/3 ML VIAL) SC SCH ×2 (07:33→20:31)
[2020-04-24] MEDS: Ferrous Sulfate 325 MG TAB PO SCH ×2 (07:34→16:17)
[2020-04-24] MEDS: Polyethylene Glycol 3350 17 GM Packet PER TUBE SCH (07:34)
--- NOTE | 2020-04-24 11:50 | PRG ---
DATE OF SERVICE: 04/24/2020 SUBJECTIVE: Yousif Nunn with cerebral palsy, day #17 in the hospital, still requiring high flow. Infectious Disease on fluconazole, meropenem, vancomycin, and high-dose steroids. Obviously, unable to get any history from the gentleman because of his cerebral palsy. OBJECTIVE: VITAL SIGNS: Temperature is 97, blood pressure 99/73, and pulse 114. CHEST: Decreased breath sounds. Bilateral rhonchi and crackles. CARDIAC: Normal S1, S2. No gallops. ABDOMEN: No masses. LABORATORY DATA: Sodium is 161, is still probably dry. Glucose of 419. IMPRESSION: Respiratory failure, encephalopathy, azotemia. He is on D5 at 100 an hour. Continue to decrease steroids. Decrease his glucose load urine output. Supportive care. We are going to re-swab him. He is a DNR. We will follow. Job ID: [id number]
--- NOTE | 2020-04-24 11:50 | PRG ---
DATE OF SERVICE: 04/24/2020 SUBJECTIVE: This is a 59-year-old gentleman being seen for acute kidney injury, requiring dialysis. The patient is resting. OBJECTIVE: GENERAL: On examination, the patient is resting. VITAL SIGNS: Afebrile, pulse 114, breathing at 16, and blood pressure 110/71. HEENT: Head normocephalic and atraumatic. Eyes intact, no ulcers. Nose intact, no ulcers. Ears intact, no ulcers. NECK: Supple. No JVD. CHEST: Symmetrical and clear. CARDIOVASCULAR: Shows S1 and S2, no rub, no murmur. GASTROINTESTINAL: Abdomen is soft, bowel sounds positive. EXTREMITIES: Show no edema or ulcers. SKIN: Shows no rash or petechiae. MUSCULOSKELETAL: Shows no joint swelling or stiffness. GENITOURINARY: Shows no Dorantes or CVA tenderness. NEUROLOGIC: The patient is nonverbal and resting. LABORATORY DATA: Hemoglobin 8.3. Sodium 164, creatinine 1.8. ASSESSMENT AND PLAN: 1. Acute kidney injury with chronic kidney disease, improving, nonoliguric. Continue hydration. 2. Hypernatremia. Increase free water. Recheck sodium 2 or 3 times a day. 3. Medications based on glomerular filtration rate are appropriate. Job ID: [id number]
[2020-04-24] MEDS: Mometasone 100 MCG/PUFF (1 INHALER) INH SCH ×2 (12:38→20:32)
--- NOTE | 2020-04-24 15:18 | PDOC.HOSPP ---
- Objective Vital Signs & Weight: Vital Signs (12 hours) Temp Pulse Ox 04/24/20 08:00 99 04/24/20 04:05 97.1 F L Weight Admit Weight 149 lb 7.574 oz Weight 149 lb 4.047 oz Most Recent Monitor Data Heart Rate from ECG 120 NIBP 105/70 NIBP BP-Mean 81 Respiration from ECG 18 SpO2 100 I&O: 04/23/20 04/24/20 04/25/20 06:59 06:59 06:59 Intake Total 1920 3820 250 Output Total 2500 3150 Balance -580 670 250 Result Diagrams: 04/21/20 04:04 04/24/20 05:55 Additional Labs: Accuchecks 04/24/20 04/24/20 04/24/20 07:42 05:58 00:23 POC Glucose 419 H 410 H 427 H 04/23/20 20:41 POC Glucose 463 H Hospitalist ROS - Medication Medications: Active Medications Generic Name Dose Route Start Last Admin Trade Name Freq PRN Reason Stop Dose Admin Acetaminophen 650 mg 04/18/20 18:37 04/20/20 20:51 Tylenol PO 650 mg Q6H PRN Administration .FEVER Albuterol Sulfate 1 puff 04/07/20 19:00 04/24/20 14:08 Proventil Hfa INH 1 puff Q8ZE-AN KAYLYN Administration Cyclobenzaprine HCl 10 mg 04/14/20 19:51 04/20/20 20:58 Flexeril PO 10 mg TIDPRN PRN Administration . Enoxaparin Sodium 30 mg 04/14/20 21:00 04/23/20 20:23 Lovenox SC 30 mg 2100 KAYLYN Administration Ferrous Sulfate 325 mg 04/15/20 10:00 04/24/20 07:34 Feosol PO 325 mg 1000,1700 KAYLYN Administration Gabapentin 300 mg 04/15/20 09:00 04/24/20 07:33 Neurontin PO 300 mg DAILY KAYLYN Administration Fluconazole/Sodium Chloride 200 mls @ 100 mls/hr 04/21/20 22:00 04/23/20 22: 29 400 mg/ Device IVPB 200 mls 2200 KAYLYN Administration Vancomycin HCl 1.5 gm/ Device 300 mls @ 166.67 mls/hr 04/22/20 18:00 18:27 IVPB 300 mls 1800 KAYLYN Administration Meropenem 1 gm/ Device 50 mls @ 200 mls/hr 04/21/20 21:00 04/24/20 07:33 IVPB 50 mls Q12HR KAYLYN Administration Dextrose/Water 1,000 mls @ 100 mls/hr 04/23/20 11:45 04/24/20 05:48 D5w IV 1,000 mls .Q10H KAYLYN Administration Insulin Human Isoph/Insulin Regular 15 units 04/18/20 21:00 04/24/20 07:33 Humulin 70/30 SC 15 unit BID KAYLYN Administration Insulin Human Lispro 0 units 04/07/20 15:52 04/24/20 13:44 Humalog SC 6 unit .MILD SLIDING SCALE PRN Administration Mild Correctional Scale Insulin Human Lispro 0 units 04/07/20 15:52 04/23/20 20:26 Humalog SC 5 unit .BEDTIME SLIDING SC PRN Administration Bedtime Correctional Scale Metoprolol Succinate 25 mg 04/15/20 09:00 04/24/20 07:33 Toprol Xl PO 25 mg QAM KAYLYN Administration Mometasone Furoate 200 mcg 04/19/20 18:30 04/24/20 12:38 Asmanex Hfa 100 Mcg INH Not Given BID-RT KAYLYN Morphine Sulfate 2 mg 04/21/20 18:53 04/21/20 19:10 Morphine SLOW IVP 2 mg Q4H PRN Administration Pain Multivitamins 1 tab 04/15/20 09:00 04/24/20 07:33 Theragran PO 1 tab DAILY KAYLYN Administration Pantoprazole Sodium 40 mg 04/13/20 21:00 04/23/20 20:23 Protonix PO 40 mg 2100 KAYLYN Administration Polyethylene Glycol 17 gm 04/18/20 09:00 04/24/20 07:34 Miralax PER TUBE Not Given DAILY KAYLYN Sodium Chloride 10 ml 04/08/20 14:44 04/15/20 08:52 Flush - Normal Saline IVF 10 ml PRN PRN Administration Saline Flush Hosp A/P - Plan (1) Acute respiratory failure with hypoxia Code(s): J96.01 - ACUTE RESPIRATORY FAILURE WITH HYPOXIA Status: Acute Plan: Persistent high-O2 requirement, continue NRB, pulmonary support, wean as clinically indicated (2) COVID-19 Code(s): U07.1 - COVID-19 Status: Acute Plan: Continue supportive mgmt, Albuterol/Doxycycline/Solumedrol/O2 support, -it appears that sicne onset of sxs likely 15 to 20 days. -worsening resp..condition requiring high flow O2. (3) Acute kidney injury Code(s): N17.9 - ACUTE KIDNEY FAILURE, UNSPECIFIED Status: Acute Plan: -good urine output y'day - so dialysis on hold (1) Acute respiratory failure with hypoxia Code(s): J96.01 - ACUTE RESPIRATORY FAILURE WITH HYPOXIA Status: Acute Plan: Persistent high-O2 requirement, continue NRB, pulmonary support, wean as clinically indicated (2) COVID-19 Code(s): U07.1 - COVID-19 Status: Acute Plan: Continue supportive mgmt, Albuterol/Doxycycline/Solumedrol/O2 support, consult ID today for any further recommendations (3) Acute kidney injury Code(s): N17.9 - ACUTE KIDNEY FAILURE, UNSPECIFIED Status: Acute Plan: -he is voiding, w.. good output yda;y - HD on hold - if he did improve, femoral cath to be removed. (4) Severe sepsis with septic shock Code(s): A41.9 - SEPSIS, UNSPECIFIED ORGANISM; R65.21 - SEVERE SEPSIS WITH SEPTIC SHOCK Status: Acute -coag neg staph on -rept bl virgil of 04/21- no growth - on vanc and merum (5) Hyperkalemia Code(s): E87.5 - HYPERKALEMIA Status: Acute (6) Cerebral palsy Code(s): G80.9 - CEREBRAL PALSY, UNSPECIFIED Status: Chronic Qualifiers: Cerebral palsy type: unspecified type Qualified Code(s): G80.9 - Cerebral palsy, unspecified continue TF's with Nepro HD per Renal service paln to remv tunnel cath -re - swab for COVID COVID isolation. following peripherally. DNAR.
--- NOTE | 2020-04-24 15:44 | RAD ---
EXAM: Single view of the chest HISTORY: Viral pneumonia COMPARISON: 04/20/2020 FINDINGS: Single view of the chest shows a normal sized cardiomediastinal silhouette. There has been significant improvement in the multifocal infiltrates. A feeding tube courses off the inferior aspect of the film. Hardware seen in the cervical spine. IMPRESSION: Improvement in multifocal pneumonia.
[2020-04-24] MEDS: Vancomycin 1.5 GRAM/300 ML BAG 1.5 GM in Premix Bag 1 BAG IVPB SCH (16:21)
[2020-04-24 17:39] LABS: Sodium 163 mmol/L (136-145)
[2020-04-24] MEDS: Enoxaparin Sodium 30 MG/0.3 ML SYRINGE SC SCH (20:31)
[2020-04-24] MEDS: Fluconazole In NaCl,Iso-Osm 400 MG in Premix Bag 1 BAG IVPB SCH (21:23)
[2020-04-25] MEDS: Albuterol 200 PUFF (6.7GM INHALER) INH SCH ×4 (01:15→20:43)
[2020-04-25] MEDS: Dextrose 5% in Water 1,000 ML IV SCH ×3 (05:44→22:31)
[2020-04-25] MEDS: HumaLOG 300 UNITS/3 ML VIAL SC PRN ×3 (05:44→23:59)
[2020-04-25] MEDS: Mometasone 100 MCG/PUFF (1 INHALER) INH SCH ×2 (05:44→20:42)
[2020-04-25] MEDS: methylPREDNISolone Sod Succ 40 MG VIAL IVP SCH (05:44)
--- NOTE | 2020-04-25 08:57 | PRG ---
DATE OF SERVICE: 04/25/2020 SUBJECTIVE: Yousif Nunn is a 59-year-old gentleman, remains on high-flow . His sats are still kind of running in the 90s. Blood pressure 94/67, respiratory rate 18, pulse 80, though x-ray shows much improvement. OBJECTIVE: CHEST: No wheezing or crackles. CARDIAC: Normal S1, S2. No gallops. ABDOMEN: No masses ASSESSMENT: Uncontrolled diabetes, coronavirus pneumonia, respiratory failure, renal failure, baseline cerebral palsy. Discontinue iv medrol, low-dose prednisone for a few days. Antibiotics per Infectious Disease. His swab is negative. He can be transferred to the medical floor. Job ID: [id number] [facility]
[2020-04-25] MEDS: MEROPENEM 1 GM/50 ML 1 GM in Premix Bag 1 BAG IVPB SCH ×2 (09:44→20:05)
[2020-04-25] MEDS: Multivit, Therapeutic 1 TAB PO SCH (09:44)
[2020-04-25] MEDS: Gabapentin 300 MG CAP PO SCH (09:44)
[2020-04-25] MEDS: Ferrous Sulfate 325 MG TAB PO SCH ×2 (09:44→17:41)
[2020-04-25] MEDS: Polyethylene Glycol 3350 17 GM Packet PER TUBE SCH (09:45)
[2020-04-25] MEDS: HumuLIN 70/30 (300 UNITS/3 ML VIAL) SC SCH ×2 (09:45→20:05)
[2020-04-25 11:39] LABS: Anion Gap 18 mmol/L (10-20); BUN (Urea Nitrogen) 79 mg/dL (8.4-25.7); Calc. Creatinine Clearance 54 mL/min (70-130); Carbon Dioxide 21 mmol/L (22-29); Chloride 120 mmol/L (98-107); Estimated GFR-MDRD 61; Glucose 473 mg/dL (70-105); Potassium 4.2 mmol/L (3.5-5.1); Sodium 155 mmol/L (136-145)
[2020-04-25 11:43] LABS: Calcium 5.9 mg/dL (7.8-10.44)
--- NOTE | 2020-04-25 11:51 | PRG ---
DATE OF SERVICE: 04/25/2020 SUBJECTIVE: A 59-year-old gentleman being seen for acute kidney injury. The patient denied nausea, vomiting, or chest pain. The patient is resting. He is nonverbal. OBJECTIVE: GENERAL: The patient is resting. VITAL SIGNS: Afebrile, pulse 125, breathing at 16, and blood pressure 93/69. HEENT: Head normocephalic and atraumatic. Eyes intact, no ulcers. Nose intact, no ulcers. Ears intact, no ulcers. NECK: Supple. No JVD. CHEST: Symmetrical and clear. CARDIOVASCULAR: Shows S1 and S2, no rub, no murmur. GASTROINTESTINAL: Abdomen is soft, bowel sounds positive. EXTREMITIES: Show no edema or ulcers. SKIN: Shows no rash or petechiae. MUSCULOSKELETAL: Shows no joint swelling or stiffness. GENITOURINARY: He has a Dorantes catheter present. NEUROLOGIC: The patient is resting. LABORATORY DATA: Labs showed hemoglobin is 8.3. Morning labs are pending. ASSESSMENT AND PLAN: 1. Chronic kidney disease stage 3. Repeat labs. 2. Hypernatremia. Increase free water. Recheck labs. Please recommend ordering daily labs. Job ID: [id number]
[2020-04-25 13:45] LABS: SARS-CoV-2 MS2 Positive; SARS-CoV-2 N Gene Positive; SARS-CoV-2 S Gene Positive; SARS-CoV-2 orf1ab Positive
--- NOTE | 2020-04-25 15:16 | PDOC.EVN ---
Event Note - Event Note Event Note: (1) Acute respiratory failure with hypoxia Code(s): J96.01 - ACUTE RESPIRATORY FAILURE WITH HYPOXIA Status: Acute Plan: Persistent high-O2 requirement, continue NRB, pulmonary support, wean as clinically indicated (2) COVID-19 Code(s): U07.1 - COVID-19 Status: Acute Plan: Continue supportive mgmt, Albuterol/Doxycycline/Solumedrol/O2 support, -it appears that sicne onset of sxs likely 15 to 20 days. -worsening resp..condition requiring high flow O2. (3) Acute kidney injury Code(s): N17.9 - ACUTE KIDNEY FAILURE, UNSPECIFIED Status: Acute Plan: -good urine output y'day - so dialysis on hold (1) Acute respiratory failure with hypoxia Code(s): J96.01 - ACUTE RESPIRATORY FAILURE WITH HYPOXIA Status: Acute Plan: Persistent high-O2 requirement, continue NRB, pulmonary support, wean as clinically indicated (2) COVID-19 Code(s): U07.1 - COVID-19 Status: Acute Plan: Continue supportive mgmt, Albuterol/Doxycycline/Solumedrol/O2 support, consult ID today for any further recommendations (3) Acute kidney injury Code(s): N17.9 - ACUTE KIDNEY FAILURE, UNSPECIFIED Status: Acute Plan: -he is voiding, w.. good output yda;y - HD on hold - if he did improve, femoral cath to be removed. (4) Severe sepsis with septic shock Code(s): A41.9 - SEPSIS, UNSPECIFIED ORGANISM; R65.21 - SEVERE SEPSIS WITH SEPTIC SHOCK Status: Acute -coag neg staph on -rept bl virgil of 04/21- no growth - on vanc and merum (5) Hyperkalemia Code(s): E87.5 - HYPERKALEMIA Status: Acute (6) Cerebral palsy Code(s): G80.9 - CEREBRAL PALSY, UNSPECIFIED Status: Chronic Qualifiers: Cerebral palsy type: unspecified type Qualified Code(s): G80.9 - Cerebral palsy, unspecified continue TF's with Nepro HD per Renal service paln to remv tunnel cath -re - swab for COVID COVID isolation. following peripherally. DNAR. 14 Hypernatremia - on free water -repeat the level this evening -daily labs severe hypocalcemia --ca supple tid via TF -will also give Iv x 1 dose. -check mag level Luekocytosis --on vanc + merum off IV steroid --on prednisone now plan to transfer to the floor. palliative on board.
--- NOTE | 2020-04-25 17:12 | PDOC.EVN ---
Event Note - Event Note Event Note: tried to reach [facility] [phone] to discuss trach and peg options as pt has a plan to take him to [place], to a facility where he was before. i got only voice message. will try tomorrow. palliative consult to help us coordinate the care dont think this would be a transfer pt to a facility with repeat COVID +ve. but will try.
[2020-04-25] MEDS: Calcium Carbonate 500 MG ChewTAB PER TUBE SCH ×2 (17:41→20:05)
[2020-04-25] MEDS: Vancomycin 1.5 GRAM/300 ML BAG 1.5 GM in Premix Bag 1 BAG IVPB SCH (17:41)
[2020-04-25] MEDS: Enoxaparin Sodium 30 MG/0.3 ML SYRINGE SC SCH (20:05)
[2020-04-25] MEDS: Fluconazole In NaCl,Iso-Osm 400 MG in Premix Bag 1 BAG IVPB SCH (22:31)
[2020-04-26 03:59] LABS: ALT (SGPT) 274 U/L (8-55); AST (SGOT) 132 U/L (5-34); Albumin 2.1 g/dL (3.5-5.0); Alkaline Phosphatase 141 U/L (40-110); Anion Gap 16 mmol/L (10-20); BUN (Urea Nitrogen) 70 mg/dL (8.4-25.7); Bilirubin, Total 0.2 mg/dL (0.2-1.2); Calc. Creatinine Clearance 68 mL/min (70-130); Calcium 6.1 mg/dL (7.8-10.44); Carbon Dioxide 24 mmol/L (22-29); Chloride 122 mmol/L (98-107); Estimated GFR-MDRD 80; Globulin 2.8 g/dL (2.4-3.5); Glucose 390 mg/dL (70-105); Magnesium 1.7 mg/dL (1.6-2.6); Phosphorus 4.1 mg/dL (2.3-4.7); Protein, Total 4.9 g/dL (6.0-8.3); Sodium 158 mmol/L (136-145)
[2020-04-26 04:00] LABS: Band 15 % (5-11); Eosinophils 3 % (0-10); Hemoglobin 10.2 g/dL (14.0-18.0); Lymphocytes 5 % (21-51); MDiff Complete? YES; Mean Corpuscular Hemoglobin 26.6 pg (27.0-31.0); Mean Corpuscular Volume 83.2 fL (78.0-98.0); Mean Platelet Volume 12.2 fL (7.4-10.4); Monocytes 3 % (0-10); Neutrophil 74 % (42-75); Platelet Count 202 thou/uL (130-400); Platelet Morphology Comment Appears Adequate; RBC Distribution Width 15.7 % (11.5-14.5); Red Blood Cell (RBC) Count 3.83 mill/uL (4.70-6.10); White Blood Cell (WBC) Count 16.4 thou/uL (4.8-10.8)
[2020-04-26] MEDS: Albuterol 200 PUFF (6.7GM INHALER) INH SCH ×4 (04:16→18:12)
[2020-04-26] MEDS: Dextrose 5% in Water 1,000 ML IV SCH ×3 (05:56→15:39)
[2020-04-26] MEDS: Mometasone 100 MCG/PUFF (1 INHALER) INH SCH ×2 (05:57→18:12)
[2020-04-26] MEDS: HumaLOG 300 UNITS/3 ML VIAL SC PRN ×3 (06:09→18:35)
[2020-04-26] MEDS: Polyethylene Glycol 3350 17 GM Packet PER TUBE SCH (09:14)
[2020-04-26] MEDS: MEROPENEM 1 GM/50 ML 1 GM in Premix Bag 1 BAG IVPB SCH ×2 (09:17→20:54)
[2020-04-26] MEDS: Calcium Carbonate 500 MG ChewTAB PER TUBE SCH ×3 (09:18→20:53)
[2020-04-26] MEDS: Ferrous Sulfate 325 MG TAB PO SCH ×2 (09:18→15:39)
[2020-04-26] MEDS: predniSONE 5 MG TAB PO SCH (09:18)
[2020-04-26] MEDS: Gabapentin 300 MG CAP PO SCH (09:18)
[2020-04-26] MEDS: Multivit, Therapeutic 1 TAB PO SCH (09:18)
[2020-04-26] MEDS: HumuLIN 70/30 (300 UNITS/3 ML VIAL) SC SCH ×2 (09:19→20:54)
[2020-04-26] MEDS: Morphine 2 MG/ML VIAL SLOW IVP PRN (10:25)
--- NOTE | 2020-04-26 10:27 | PRG ---
DATE OF SERVICE: 04/26/2020 OBJECTIVE: VITAL SIGNS: Saturations are 96 on high-flow, blood pressure 109/73, pulse 113, respirations 18. His brenner test was positive again. CHEST: Rhonchi and crackles. CARDIAC: Normal S1 and S2. No gallops. ABDOMEN: No masses. LABORATORY DATA: Liver function is abnormal, AST is 273. White count 16,000, hemoglobin and hematocrit are 10 and 32, platelet count is 202. BUN and creatinine have improved to 70 and 1.4, sodium 158, most of it is prerenal. ASSESSMENT: Multiorgan failure, cerebral palsy, respiratory failure, hypoxemia, brenner positive pneumonia, abnormal liver function. PLAN: He is a DNR. His overall prognosis is grave. He is still getting broad-spectrum antibiotics as per Infectious Disease. Consider deescalating. Job ID: [id number]
--- NOTE | 2020-04-26 13:58 | PRG ---
DATE OF SERVICE: 04/26/2020 SUBJECTIVE: A 59-year-old gentleman, being seen for acute kidney injury with renal function improvement. Creatinine has normalized. The patient remains nonverbal. Blood pressure is on the lower side. OBJECTIVE: General: The patient is resting. Vital Signs: Afebrile, pulse 75, breathing 16, blood pressure 88/59. HEENT: Head normocephalic and atraumatic. Eyes intact, no ulcers. Nose intact, no ulcers. Ears intact, no ulcers. Neck: Supple. No JVD. Chest: Symmetrical and clear. Cardiovascular: Shows S1 and S2, no rub, no murmur. Gastrointestinal: Abdomen is soft, bowel sounds positive. Extremities: Show no edema or ulcers. Skin: Shows no rash or petechiae. Musculoskeletal: Shows no joint swelling or stiffness. Genitourinary: Shows no Dorantes or CVA tenderness. Neurologic: The patient is not responsive and has Dorantes catheter. LABORATORY DATA: Chemistry shows sodium is 158, creatinine 1.1. ASSESSMENT AND PLAN: 1. Acute kidney injury, improved. 2. Chronic kidney disease, stage 2, stable. 3. Hypernatremia. Recommend increasing free water. Rechecking sodium twice a day. 4. Hypotension. Management per primary team. 5. Prognosis is poor. Job ID: [id number]
--- NOTE | 2020-04-26 16:04 | PDOC.EVN ---
Event Note - Event Note Event Note: tried to reach [facility] [phone] to discuss trach and peg options as pt has a plan to take him to [place], to a facility where he was before. i got only voice message. will try tomorrow. palliative consult to help us coordinate the care dont think this would be a transfer pt to a facility with repeat COVID +ve. --talk to palliative at length - PEG tube is only temporary -- gien the overall poor prognosis, it may be futile. -inpt hospice appropriate.
[2020-04-26 17:22] LABS: Vancomycin, Trough 15.3 ug/mL
[2020-04-26] MEDS: Vancomycin 1.5 GRAM/300 ML BAG 1.5 GM in Premix Bag 1 BAG IVPB SCH (18:25)
[2020-04-26] MEDS: Acetaminophen 325 MG TAB PO PRN (18:51)
[2020-04-26] MEDS: Enoxaparin Sodium 30 MG/0.3 ML SYRINGE SC SCH (20:53)
[2020-04-26] MEDS: Fluconazole In NaCl,Iso-Osm 400 MG in Premix Bag 1 BAG IVPB SCH (21:43)
[2020-04-27] MEDS: HumaLOG 300 UNITS/3 ML VIAL SC PRN ×3 (00:32→21:50)
[2020-04-27] MEDS: Albuterol 200 PUFF (6.7GM INHALER) INH SCH ×4 (02:03→19:37)
[2020-04-27] MEDS: Dextrose 5% in Water 1,000 ML IV SCH ×3 (03:29→21:00)
[2020-04-27 04:52] LABS: Anion Gap 16 mmol/L (10-20); BUN (Urea Nitrogen) 53 mg/dL (8.4-25.7); Calc. Creatinine Clearance 86 mL/min (70-130); Calcium 6.3 mg/dL (7.8-10.44); Carbon Dioxide 24 mmol/L (22-29); Chloride 121 mmol/L (98-107); Estimated GFR-MDRD Greater than 90; Glucose 308 mg/dL (70-105); Potassium 5.3 mmol/L (3.5-5.1); Sodium 156 mmol/L (136-145)
[2020-04-27 05:02] LABS: #Eosinphils 1.3 thou/uL (0.0-0.7); #Lymphocytes 1.1 thou/uL (1.20-3.40); #Monocytes 0.3 thou/uL (0.11-0.59); #Neutrophils 8.7 thou/uL (1.40-6.50); %Basophils 0.1 % (0.0-1.0); %Eosinophils 11.5 % (0.0-10.0); %Lymphocytes 9.5 % (21.0-51.0); %Monocytes 2.3 % (0.0-10.0); %Neutrophils 76.6 % (42.0-75.0); Mean Corpuscular HGB CONC 30.1 g/dL (32.0-36.0); Mean Corpuscular Hemoglobin 25.4 pg (27.0-31.0); Mean Corpuscular Volume 84.4 fL (78.0-98.0); Mean Platelet Volume 12.3 fL (7.4-10.4); Platelet Count 169 thou/uL (130-400); Red Blood Cell (RBC) Count 3.54 mill/uL (4.70-6.10); White Blood Cell (WBC) Count 11.3 thou/uL (4.8-10.8)
[2020-04-27] MEDS: Mometasone 100 MCG/PUFF (1 INHALER) INH SCH ×2 (05:47→19:36)
--- NOTE | 2020-04-27 09:18 | PRG ---
DATE OF SERVICE: 04/27/2020 SUBJECTIVE: A 59-year-old gentleman with cerebral palsy, still on high-flow. His sats are better, 100% this morning. OBJECTIVE: VITAL SIGNS: His pulse was 76, blood pressure 108/60, respiratory rate 18. CHEST: Crackles, no wheezing. CARDIAC: Normal S1, S2. No gallops. LABORATORY DATA: BUN and creatinine back to normal. Sodium 156. White count [id number]. ASSESSMENT AND PLAN: Renal failure, improving. Coronavirus positive pneumonia, respiratory failure, renal failure, diabetes. Pulmonary bush, he is trying getting to low-flow O2. He can be eventually discharged. Job ID: [id number]
[2020-04-27] MEDS: HumuLIN 70/30 (300 UNITS/3 ML VIAL) SC SCH ×2 (09:30→21:43)
[2020-04-27] MEDS: predniSONE 5 MG TAB PO SCH (10:58)
[2020-04-27] MEDS: MEROPENEM 1 GM/50 ML 1 GM in Premix Bag 1 BAG IVPB SCH ×2 (10:58→21:41)
[2020-04-27] MEDS: Ferrous Sulfate 325 MG TAB PO SCH ×2 (10:58→16:02)
[2020-04-27] MEDS: Polyethylene Glycol 3350 17 GM Packet PER TUBE SCH (10:59)
[2020-04-27] MEDS: Multivit, Therapeutic 1 TAB PO SCH (10:59)
[2020-04-27] MEDS: Gabapentin 300 MG CAP PO SCH (10:59)
[2020-04-27] MEDS: Calcium Carbonate 500 MG ChewTAB PER TUBE SCH ×3 (10:59→21:41)
--- NOTE | 2020-04-27 11:39 | PRG ---
DATE OF SERVICE: 04/27/2020 SUBJECTIVE: A 59-year-old male being seen for acute kidney injury. The patient is nonverbal. OBJECTIVE: GENERAL: Patient is resting. VITAL SIGNS: Pulse 111, breathing 16, blood pressure 108/46. HEENT: Head normocephalic and atraumatic. Eyes intact, no ulcers. Nose intact, no ulcers. Ears intact, no ulcers. NECK: Supple. No JVD. CHEST: Symmetrical and clear. CARDIOVASCULAR: Shows S1 and S2, no rub, no murmur. GASTROINTESTINAL: Abdomen is soft, bowel sounds positive. EXTREMITIES: Show no edema or ulcers. SKIN: Shows no rash or petechiae. MUSCULOSKELETAL: Shows no joint swelling or stiffness. GENITOURINARY: Shows no Dorantes or CVA tenderness. NEUROLOGIC: The patient is resting and has Dorantes catheter present. LABORATORY DATA: Hemoglobin 9. Sodium 156, potassium 5.3, creatinine 0.94. ASSESSMENT: 1. Acute kidney injury with chronic kidney disease stage 1, stable. 2. Hyperkalemia. Recommend low-potassium diet. Recheck potassium. 3. Hyponatremia. Increase free water to 200 mL/h and recheck sodium later today and potassium. Job ID: [id number]
--- NOTE | 2020-04-27 12:55 | PDOC.EVN ---
Event Note - Event Note Event Note: tried to reach [facility] [phone] to discuss trach and peg options as pt has a plan to take him to [place], to a facility where he was before. i got only voice message. will try tomorrow. palliative consult to help us coordinate the care dont think this would be a transfer pt to a facility with repeat COVID +ve. --talk to palliative at length - PEG tube is only temporary -- given the overall poor prognosis, it may be futile. -inpt hospice appropriate. 16th -pt is improving slightly -last evening - tachycardic w.. hypotension pulse and BP better today -talk to RN and palliative - family wants to discuss hospice options as well. - they will decide on PEG tube vs.. none -
[2020-04-27] MEDS: Vancomycin 1.5 GRAM/300 ML BAG 1.5 GM in Premix Bag 1 BAG IVPB SCH (18:19)
[2020-04-27] MEDS: Enoxaparin Sodium 30 MG/0.3 ML SYRINGE SC SCH (21:41)
[2020-04-27] MEDS: Fluconazole In NaCl,Iso-Osm 400 MG in Premix Bag 1 BAG IVPB SCH (22:30)
[2020-04-28] MEDS: Albuterol 200 PUFF (6.7GM INHALER) INH SCH ×4 (01:21→20:31)
[2020-04-28] MEDS: Dextrose 5% in Water 1,000 ML IV SCH ×5 (03:51→20:28)
[2020-04-28 03:54] LABS: #Monocytes 0.2 thou/uL (0.11-0.59); #Neutrophils 7.7 thou/uL (1.40-6.50); %Basophils 0.1 % (0.0-1.0); %Eosinophils 10.1 % (0.0-10.0); %Lymphocytes 10.1 % (21.0-51.0); %Monocytes 2.1 % (0.0-10.0); %Neutrophils 77.6 % (42.0-75.0); Hemoglobin 8.1 g/dL (14.0-18.0); Mean Corpuscular HGB CONC 30.5 g/dL (32.0-36.0); Mean Corpuscular Hemoglobin 25.8 pg (27.0-31.0); Mean Corpuscular Volume 84.7 fL (78.0-98.0); Mean Platelet Volume 12.8 fL (7.4-10.4); Platelet Count 137 thou/uL (130-400); RBC Distribution Width 16.1 % (11.5-14.5); Red Blood Cell (RBC) Count 3.14 mill/uL (4.70-6.10); White Blood Cell (WBC) Count 9.9 thou/uL (4.8-10.8)
[2020-04-28 04:15] LABS: Anion Gap 12 mmol/L (10-20); BUN (Urea Nitrogen) 38 mg/dL (8.4-25.7); Calc. Creatinine Clearance 101 mL/min (70-130); Calcium 6.2 mg/dL (7.8-10.44); Carbon Dioxide 25 mmol/L (22-29); Chloride 116 mmol/L (98-107); Estimated GFR-MDRD Greater than 90; Glucose 344 mg/dL (70-105); Potassium 4.2 mmol/L (3.5-5.1); Sodium 149 mmol/L (136-145)
[2020-04-28] MEDS: HumaLOG 300 UNITS/3 ML VIAL SC PRN ×3 (05:47→20:42)
[2020-04-28] MEDS: Mometasone 100 MCG/PUFF (1 INHALER) INH SCH ×2 (07:41→20:31)
[2020-04-28] MEDS: MEROPENEM 1 GM/50 ML 1 GM in Premix Bag 1 BAG IVPB SCH ×2 (09:45→20:27)
[2020-04-28] MEDS: Gabapentin 300 MG CAP PO SCH (09:46)
[2020-04-28] MEDS: Calcium Carbonate 500 MG ChewTAB PER TUBE SCH ×3 (09:46→20:27)
[2020-04-28] MEDS: Ferrous Sulfate 325 MG TAB PO SCH ×2 (09:46→17:37)
[2020-04-28] MEDS: predniSONE 5 MG TAB PO SCH (09:46)
[2020-04-28] MEDS: Multivit, Therapeutic 1 TAB PO SCH (09:46)
[2020-04-28] MEDS: Polyethylene Glycol 3350 17 GM Packet PER TUBE SCH (09:47)
[2020-04-28] MEDS: HumuLIN 70/30 (300 UNITS/3 ML VIAL) SC SCH ×2 (09:49→20:27)
[2020-04-28 09:53] LABS: Anion Gap 13 mmol/L (10-20); BUN (Urea Nitrogen) 34 mg/dL (8.4-25.7); Calc. Creatinine Clearance 100 mL/min (70-130); Calcium 6.6 mg/dL (7.8-10.44); Carbon Dioxide 26 mmol/L (22-29); Chloride 115 mmol/L (98-107); Estimated GFR-MDRD Greater than 90; Glucose 321 mg/dL (70-105); Potassium 4.1 mmol/L (3.5-5.1); Sodium 150 mmol/L (136-145)
--- NOTE | 2020-04-28 11:20 | PRG ---
DATE OF SERVICE: 04/28/2020 SUBJECTIVE: A 59-year-old gentleman is being seen for hypernatremia. The patient is nonverbal. PHYSICAL EXAMINATION: GENERAL: The patient is resting. VITAL SIGNS: Afebrile, pulse 75, breathing at 16, blood pressure 103/60. HEENT: Head normocephalic and atraumatic. Eyes intact, no ulcers. Nose intact, no ulcers. Ears intact, no ulcers. NECK: Supple. No JVD. CHEST: Symmetrical and clear. CARDIOVASCULAR: Shows S1 and S2, no rub, no murmur. GASTROINTESTINAL: Abdomen is soft, bowel sounds positive. EXTREMITIES: Show no edema or ulcers. SKIN: Shows no rash or petechiae. MUSCULOSKELETAL: Shows no joint swelling or stiffness. GENITOURINARY: Shows no Dorantes or CVA tenderness. NEUROLOGIC: Motor intact. Cranial nerves intact. LABS SHOW: Hemoglobin is 8.1. Sodium is 149. ASSESSMENT AND PLAN: 1. Hypernatremia, improved. Continue free water. 2. Anemia, stable. 3. Medication based on GFR appropriate. 4. No indication for dialysis. 5. I will sign off when sodium is improved. Job ID: [id number]
--- NOTE | 2020-04-28 12:28 | PRG ---
DATE OF SERVICE: 04/28/2020 SUBJECTIVE: A 59-year-old gentleman, he is down to 40% FiO2, saturations 100%, high flow 30 liters; trying to put him on nasal O2. OBJECTIVE: VITAL SIGNS: Blood pressure 110/67, pulse 70, respiratory rate 18. CHEST: No crackles. No wheezing. CARDIAC: Normal S1, S2. ASSESSMENT AND PLAN: 1. Renal failure, resolved. 2. Respiratory failure, coronavirus pneumonia, encephalopathy, better. 3. Once he is on nasal O2 he can be discharged at any time. CRITICAL CARE TIME: One-half hour. Job ID: [id number]
--- NOTE | 2020-04-28 15:37 | PDOC.EVN ---
Event Note - Event Note Event Note: -pt is improving- vitals stable, O2 sats 100% - family wants to discuss hospice options as well. - they will decide on PEG tube vs.. none talk to RN and Dr. Montoya -- Ok to transfer out of ICU. Pt's O2 status improved and he is on 2 lit O2 only will move him to 4th floor, when bed available. pt's son is discussing w.. hospice to explore all options, prior to putting PEG tube.
[2020-04-28 16:34] LABS: Anion Gap 14 mmol/L (10-20); BUN (Urea Nitrogen) 32 mg/dL (8.4-25.7); Calc. Creatinine Clearance 103 mL/min (70-130); Calcium 6.7 mg/dL (7.8-10.44); Carbon Dioxide 24 mmol/L (22-29); Chloride 114 mmol/L (98-107); Estimated GFR-MDRD Greater than 90; Glucose 342 mg/dL (70-105); Potassium 5.3 mmol/L (3.5-5.1); Sodium 147 mmol/L (136-145)
[2020-04-28] MEDS: Vancomycin 1.5 GRAM/300 ML BAG 1.5 GM in Premix Bag 1 BAG IVPB SCH (17:37)
[2020-04-28] MEDS: Enoxaparin Sodium 30 MG/0.3 ML SYRINGE SC SCH (20:27)
[2020-04-28] MEDS: Acetaminophen 325 MG TAB PO PRN (20:30)
[2020-04-28] MEDS: Fluconazole In NaCl,Iso-Osm 400 MG in Premix Bag 1 BAG IVPB SCH (21:28)
[2020-04-29] MEDS: Albuterol 200 PUFF (6.7GM INHALER) INH SCH ×4 (02:01→20:23)
[2020-04-29 04:00] LABS: Anion Gap 13 mmol/L (10-20); BUN (Urea Nitrogen) 29 mg/dL (8.4-25.7); Calc. Creatinine Clearance 121 mL/min (70-130); Calcium 6.8 mg/dL (7.8-10.44); Carbon Dioxide 26 mmol/L (22-29); Chloride 113 mmol/L (98-107); Estimated GFR-MDRD Greater than 90; Glucose 193 mg/dL (70-105); Potassium 4.6 mmol/L (3.5-5.1); Sodium 147 mmol/L (136-145)
[2020-04-29] MEDS: HumaLOG 300 UNITS/3 ML VIAL SC PRN (06:29)
[2020-04-29] MEDS: Mometasone 100 MCG/PUFF (1 INHALER) INH SCH ×2 (06:44→20:23)
[2020-04-29 07:26] LABS: #Eosinphils 0.6 thou/uL (0.0-0.7); #Monocytes 0.3 thou/uL (0.11-0.59); #Neutrophils 7.5 thou/uL (1.40-6.50); %Basophils 0.2 % (0.0-1.0); %Monocytes 3.2 % (0.0-10.0); %Neutrophils 79.7 % (42.0-75.0); Hemoglobin 7.9 g/dL (14.0-18.0); Mean Corpuscular HGB CONC 31.4 g/dL (32.0-36.0); Mean Corpuscular Volume 82.7 fL (78.0-98.0); Mean Platelet Volume 12.5 fL (7.4-10.4); Platelet Count 135 thou/uL (130-400); RBC Distribution Width 16.2 % (11.5-14.5); Red Blood Cell (RBC) Count 3.02 mill/uL (4.70-6.10); White Blood Cell (WBC) Count 9.4 thou/uL (4.8-10.8)
[2020-04-29] MEDS: Multivit, Therapeutic 1 TAB PO SCH (10:02)
[2020-04-29] MEDS: Calcium Carbonate 500 MG ChewTAB PER TUBE SCH ×3 (10:02→20:33)
[2020-04-29] MEDS: predniSONE 5 MG TAB PO SCH (10:02)
[2020-04-29] MEDS: MEROPENEM 1 GM/50 ML 1 GM in Premix Bag 1 BAG IVPB SCH ×2 (10:02→20:31)
[2020-04-29] MEDS: Ferrous Sulfate 325 MG TAB PO SCH ×2 (10:03→15:08)
[2020-04-29] MEDS: Gabapentin 300 MG CAP PO SCH (10:03)
[2020-04-29] MEDS: Polyethylene Glycol 3350 17 GM Packet PER TUBE SCH (10:03)
[2020-04-29] MEDS: HumuLIN 70/30 (300 UNITS/3 ML VIAL) SC SCH ×2 (10:04→20:33)
[2020-04-29] MEDS: Dextrose 5% in Water 1,000 ML IV SCH ×2 (12:37→23:18)
--- NOTE | 2020-04-29 14:16 | PDOC.HOSPP ---
- Subjective Encounter Date: 04/29/20 Encounter Time: 11:10 Subjective: pt transferred from unit to [facility], sitting in the chair, responding. on 2 li O2 by [place]., talk to RN. - Objective Vital Signs & Weight: Vital Signs (12 hours) Pulse Ox 04/29/20 08:00 100 04/29/20 04:00 92 L Weight Admit Weight 149 lb 7.574 oz Weight 153 lb 6.4 oz Most Recent Monitor Data Heart Rate from ECG 94 NIBP 101/64 NIBP BP-Mean 76 Respiration from ECG 21 SpO2 100 I&O: 04/28/20 04/29/20 04/30/20 06:59 06:59 06:59 Intake Total 8150 6350 250 Output Total 3550 2950 Balance 4600 3400 250 Result Diagrams: 04/29/20 07:18 04/29/20 03:34 Additional Labs: Accuchecks 04/29/20 04/29/20 04/28/20 11:05 06:08 20:46 POC Glucose 257 H 170 H 298 H Hospitalist ROS - Medication Medications: Active Medications Generic Name Dose Route Start Last Admin Trade Name Freq PRN Reason Stop Dose Admin Acetaminophen 650 mg 04/18/20 18:37 04/28/20 20:30 Tylenol PO 650 mg Q6H PRN Administration .FEVER Albuterol Sulfate 1 puff 04/07/20 19:00 04/29/20 06:45 Proventil Hfa INH Not Given [id number] KAYLYN Calcium Carbonate 500 mg 04/25/20 15:00 04/29/20 10:02 Tums PER TUBE 500 mg TID KAYLYN Administration Cyclobenzaprine HCl 10 mg 04/14/20 19:51 04/20/20 20:58 Flexeril PO 10 mg TIDPRN PRN Administration . Enoxaparin Sodium 30 mg 04/14/20 21:00 04/28/20 20:27 Lovenox SC 30 mg 2100 KAYLYN Administration Ferrous Sulfate 325 mg 04/15/20 10:00 04/29/20 10:03 Feosol PO 325 mg 1000,1700 KAYLYN Administration Gabapentin 300 mg 04/15/20 09:00 04/29/20 10:03 Neurontin PO 300 mg DAILY KAYLYN Administration Fluconazole/Sodium Chloride 200 mls @ 100 mls/hr 04/21/20 22:00 04/28/20 21: 28 400 mg/ Device IVPB 200 mls 2200 KAYLYN Administration Vancomycin HCl 1.5 gm/ Device 300 mls @ 166.67 mls/hr 04/22/20 18:00 17:37 IVPB 300 mls 1800 KAYLYN Administration Meropenem 1 gm/ Device 50 mls @ 200 mls/hr 04/21/20 21:00 04/29/20 10:02 IVPB 50 mls Q12HR KAYLYN Administration Dextrose/Water 1,000 mls @ 75 mls/hr 04/28/20 08:51 04/29/20 12:37 D5w IV 1,000 mls .[id number] KAYLYN Administration Insulin Human Isoph/Insulin Regular 15 units 04/18/20 21:00 04/29/20 10:04 Humulin 70/30 SC 15 unit BID KAYLYN Administration Insulin Human Lispro 0 units 04/07/20 15:52 04/29/20 06:29 Humalog SC 2 unit .MILD SLIDING SCALE PRN Administration Mild Correctional Scale Insulin Human Lispro 0 units 04/07/20 15:52 04/23/20 20:26 Humalog SC 5 unit .BEDTIME SLIDING SC PRN Administration Bedtime Correctional Scale Metoprolol Succinate 25 mg 04/15/20 09:00 04/29/20 10:02 Toprol Xl PO 25 mg QAM KAYLYN Administration Mometasone Furoate 200 mcg 04/19/20 18:30 04/29/20 06:44 Asmanex Hfa 100 Mcg INH Not Given BID-RT KAYLYN Morphine Sulfate 2 mg 04/21/20 18:53 04/26/20 10:25 Morphine SLOW IVP 2 mg Q4H PRN Administration Pain Multivitamins 1 tab 04/15/20 09:00 04/29/20 10:02 Theragran PO 1 tab DAILY KAYLYN Administration Pantoprazole Sodium 40 mg 04/13/20 21:00 04/28/20 20:28 Protonix PO 40 mg 2100 KAYLYN Administration Polyethylene Glycol 17 gm 04/18/20 09:00 04/29/20 10:03 Miralax PER TUBE Not Given DAILY KAYLYN Sodium Chloride 10 ml 04/08/20 14:44 04/15/20 08:52 Flush - Normal Saline IVF 10 ml PRN PRN Administration Saline Flush - Exam General Appearance: NAD, ill appearing General - other findings: in the chair Eye: PERRL ENT: normocephalic atraumatic Neck: supple Neurological: no new deficit Psychiatric: oriented to person Hosp A/P - Plan (1) Acute respiratory failure with hypoxia Code(s): J96.01 - ACUTE RESPIRATORY FAILURE WITH HYPOXIA Status: Acute Plan: Persistent high-O2 requirement, continue NRB, pulmonary support, wean as clinically indicated (2) COVID-19 Code(s): U07.1 - COVID-19 Status: Acute Plan: Continue supportive mgmt, Albuterol/Doxycycline/Solumedrol/O2 support, -it appears that sicne onset of sxs likely 15 to 20 days. -worsening resp..condition requiring high flow O2. (3) Acute kidney injury Code(s): N17.9 - ACUTE KIDNEY FAILURE, UNSPECIFIED Status: Acute Plan: -good urine output y'day - so dialysis on hold (1) Acute respiratory failure with hypoxia Code(s): J96.01 - ACUTE RESPIRATORY FAILURE WITH HYPOXIA Status: Acute Plan: Persistent high-O2 requirement, continue NRB, pulmonary support, wean as clinically indicated (2) COVID-19 Code(s): U07.1 - COVID-19 Status: Acute Plan: Continue supportive mgmt, Albuterol/Doxycycline/Solumedrol/O2 support, consult ID today for any further recommendations (3) Acute kidney injury Code(s): N17.9 - ACUTE KIDNEY FAILURE, UNSPECIFIED Status: Acute Plan: -he is voiding, w.. good output yda;y - HD on hold - if he did improve, femoral cath to be removed. (4) Severe sepsis with septic shock Code(s): A41.9 - SEPSIS, UNSPECIFIED ORGANISM; R65.21 - SEVERE SEPSIS WITH SEPTIC SHOCK Status: Acute -coag neg staph on -rept bl virgil of 04/21- no growth - on vanc and merum (5) Hyperkalemia Code(s): E87.5 - HYPERKALEMIA Status: Acute (6) Cerebral palsy Code(s): G80.9 - CEREBRAL PALSY, UNSPECIFIED Status: Chronic Qualifiers: Cerebral palsy type: unspecified type Qualified Code(s): G80.9 - Cerebral palsy, unspecified continue TF's with Nepro HD per Renal service plan to remv tunnel cath -re - swab for COVID pt moved to [facility] from [facility] -can go to the floor -family discussing w.. hospice reg.. all options incld PEG tube evaluation -palliative on board - prob things would be finalized on friday -if PEG is an option, then will consult sux for the same. - likely then, can be transferred back to his residential facility in [place] _ i talk to palliative on friday, and son, Duran wants to d/w hospice.
[2020-04-29 19:20] LABS: Vancomycin, Trough 8.9 ug/mL
[2020-04-29] MEDS: Vancomycin 1.5 GRAM/300 ML BAG 1.5 GM in Premix Bag 1 BAG IVPB SCH (20:31)
[2020-04-29] MEDS: Pantoprazole 40 MG GRANULES PACKET PER TUBE SCH (20:33)
[2020-04-29] MEDS: Enoxaparin Sodium 30 MG/0.3 ML SYRINGE SC SCH (20:33)
[2020-04-29] MEDS: Fluconazole In NaCl,Iso-Osm 400 MG in Premix Bag 1 BAG IVPB SCH ×2 (22:49→23:14)
[2020-04-29] MEDS ORDERED: MEROPENEM 1 GM/50 ML 1 GM in Premix Bag 1 BAG IVPB SCH (23:00)
[2020-04-29] MEDS ORDERED: Vancomycin 1 GM in Premix Bag 1 BAG IVPB SCH (23:59)
[2020-04-30] MEDS: Albuterol 200 PUFF (6.7GM INHALER) INH SCH ×4 (00:34→18:08)
[2020-04-30] MEDS: Vancomycin 1 GM in Premix Bag 1 BAG IVPB SCH ×3 (05:21→21:17)
[2020-04-30] MEDS: Mometasone 100 MCG/PUFF (1 INHALER) INH SCH ×2 (06:00→18:08)
[2020-04-30 06:36] LABS: Anion Gap 11 mmol/L (10-20); BUN (Urea Nitrogen) 21 mg/dL (8.4-25.7); Calc. Creatinine Clearance 143 mL/min (70-130); Calcium 7.3 mg/dL (7.8-10.44); Carbon Dioxide 25 mmol/L (22-29); Chloride 108 mmol/L (98-107); Estimated GFR-MDRD Greater than 90; Glucose 130 mg/dL (70-105); Potassium 3.9 mmol/L (3.5-5.1); Sodium 140 mmol/L (136-145)
[2020-04-30 06:47] LABS: #Eosinphils 0.4 thou/uL (0.0-0.7); #Lymphocytes 1.3 thou/uL (1.20-3.40); #Monocytes 0.4 thou/uL (0.11-0.59); #Neutrophils 8.6 thou/uL (1.40-6.50); %Basophils 0.2 % (0.0-1.0); %Eosinophils 3.9 % (0.0-10.0); %Lymphocytes 11.7 % (21.0-51.0); %Monocytes 3.4 % (0.0-10.0); %Neutrophils 80.8 % (42.0-75.0); Hemoglobin 8.3 g/dL (14.0-18.0); Mean Corpuscular HGB CONC 31.1 g/dL (32.0-36.0); Mean Corpuscular Hemoglobin 26.1 pg (27.0-31.0); Mean Platelet Volume 13.2 fL (7.4-10.4); Platelet Count 147 thou/uL (130-400); RBC Distribution Width 16.5 % (11.5-14.5); Red Blood Cell (RBC) Count 3.16 mill/uL (4.70-6.10); White Blood Cell (WBC) Count 10.7 thou/uL (4.8-10.8)
[2020-04-30] MEDS: Polyethylene Glycol 3350 17 GM Packet PER TUBE SCH (07:59)
[2020-04-30] MEDS: Calcium Carbonate 500 MG ChewTAB PER TUBE SCH ×3 (07:59→20:46)
[2020-04-30] MEDS: Multivit, Therapeutic 1 TAB PO SCH (08:00)
[2020-04-30] MEDS: Gabapentin 300 MG CAP PO SCH (08:00)
--- NOTE | 2020-04-30 08:16 | PRG ---
DATE OF SERVICE: 04/29/2020 Subjective: Patient is seen in ICU. He is on airborne isolation due to COVID-19. He has decreasing oxygen requirements, currently on 2 liters/minute via nasal cannula. Review of systems Gen.: No fever, no chills All the 14 systems reviewed except for the ones mentioned above are negative Vitals Blood pressure-107/65 Pulse rate-98/minute Respiratory rate related-23/minute Oxygen saturation-100% on 2 L nasal cannula Urine output 3550 mL in the last 24 hours Patient is currently on airborne isolation Constitutional: comfortable, not in pain HEENT: On supplemental oxygen, NG tube noted Neck: Trachea midline, Heart: Regular rate and rhythm on monitor Abdomen: Not distended Extremities: No edema Neurological: Patient is nonverbal Skin: No rash, no ulcers Psychological: Not agitated Labs and Imaging reviewed. WBC 9.4, hemoglobin 7.9, hematocrit 25, platelet count 135 Sodium 147, potassium 4.6, BUN 29, creatinine 0.65 Assessment and plan Hypernatremia Anemia Hypertension COVID-19 positive Patient is currently getting D5W at 75 mL/minute. He is also on NG tube flushes 125 mL q.1 hour hourly. Will continue to monitor sodium levels. Continue to monitor hemoglobin and hematocrit transfuse PRBC p.r.n..Patient is also getting iron tablets. Patient's blood pressure is stable, he is currently on Toprol-XL. Discussed with ICU nurse at the bedside. Job ID: [id number] MTDD
[2020-04-30] MEDS: HumuLIN 70/30 (300 UNITS/3 ML VIAL) SC SCH ×2 (10:36→21:16)
[2020-04-30] MEDS: MEROPENEM 1 GM/50 ML 1 GM in Premix Bag 1 BAG IVPB SCH ×2 (10:36→23:58)
[2020-04-30] MEDS ORDERED: Acetaminophen 650 MG/20.3 ML UDCUP PO PRN (11:00)
[2020-04-30] MEDS: Ferrous Sulfate 325 MG TAB PO SCH (11:55)
[2020-04-30] MEDS: Dextrose 5% in Water 1,000 ML IV SCH (12:24)
[2020-04-30] MEDS: HumaLOG 300 UNITS/3 ML VIAL SC PRN (12:24)
--- NOTE | 2020-04-30 12:50 | PRG ---
DATE OF SERVICE: 04/30/2020 Subjective: Patient is seen and examined in the room. Patient was moved to the floor from ICU. Patient continues to be on airborne isolation due to COVID-19. Review of systems Gen.: No fever, no chills All the 14 systems reviewed except for the ones mentioned above are negative Vitals Blood pressure-130/79 Pulse rate-85/minute Respiratory-20/minute Oxygen saturation-93% on 2 L of oxygen via nasal cannula Physical examination Patient is currently on airborne isolation Constitutional: comfortable, not in pain HEENT: NG tube noted Neck: Trachea midline, Heart: Regular rate and rhythm on monitor Lungs: On supplemental oxygen Abdomen: Not distended Extremities: No edema Neurological: Patient is nonverbal Skin: No rash, no ulcers Psychological: Not agitated Labs and Imaging reviewed. WBC 10.7, hemoglobin 8.3, hematocrit 26.6, platelet count 147 Sodium 140, potassium 3.9, bicarb 25, BUN 21, creatinine 0.60 Assessment and plan Hyponatremia Anemia Hypertension COVID-19 positive Patient's sodium level is improving, discontinue D5W. Patient is on free water flushes via NG tube. Decrease free water flushes to 250 q.8h hourly. Continue to monitor hemoglobin and hematocrit, patient is on iron tablets. Patient's blood pressure is stable, he is currently on Toprol-XL. Discussed with RN at bedside. Job ID: [id number] MTDD
--- NOTE | 2020-04-30 13:42 | PDOC.HOSPP ---
- Subjective Encounter Date: 04/30/20 Encounter Time: 12:40 Subjective: pt remains the same, sating 95% w.. 3 Li O2. no acute events o/n. - Objective Vital Signs & Weight: Vital Signs (12 hours) Temp Pulse Resp BP Pulse Ox 04/30/20 10:46 98 18 131/84 95 04/30/20 08:00 98 04/30/20 04:30 97.7 F 85 20 130/79 93 L Weight Admit Weight 149 lb 7.574 oz Weight 165 lb 12.8 oz Most Recent Monitor Data Heart Rate from ECG 96 NIBP 99/60 NIBP BP-Mean 73 Respiration from ECG 23 SpO2 100 I&O: 04/29/20 04/30/20 05/01/20 06:59 06:59 06:59 Intake Total 6350 2850 250 Output Total 2950 3350 Balance 3400 -500 250 Result Diagrams: 04/30/20 05:51 04/30/20 05:51 Hospitalist ROS - Medication Medications: Active Medications Generic Name Dose Route Start Last Admin Trade Name Freq PRN Reason Stop Dose Admin Albuterol Sulfate 1 puff 04/07/20 19:00 04/30/20 06:00 Proventil Hfa INH Not Given [id number] KAYLYN Calcium Carbonate 500 mg 04/25/20 15:00 04/30/20 07:59 Tums PER TUBE 500 mg TID KAYLYN Administration Cyclobenzaprine HCl 10 mg 04/14/20 19:51 04/20/20 20:58 Flexeril PO 10 mg TIDPRN PRN Administration . Enoxaparin Sodium 30 mg 04/14/20 21:00 04/29/20 20:33 Lovenox SC 30 mg 2100 KAYLYN Administration Gabapentin 300 mg 04/15/20 09:00 04/30/20 08:00 Neurontin PO 300 mg DAILY KAYLYN Administration Fluconazole/Sodium Chloride 200 mls @ 100 mls/hr 04/29/20 23:59 04/29/20 23: 14 400 mg/ Device IVPB 200 mls 2359 KAYLYN Administration Vancomycin HCl 1 gm/ Device 200 mls @ 200 mls/hr 04/30/20 06:00 04/30/20 05: 21 IVPB 200 mls Q8HR KAYLYN Administration Meropenem 1 gm/ Device 50 mls @ 200 mls/hr 04/30/20 11:00 04/30/20 10:36 IVPB 50 mls 1100,2300 KAYLYN Administration Insulin Human Isoph/Insulin Regular 15 units 04/18/20 21:00 04/30/20 10:36 Humulin 70/30 SC 15 unit BID KAYLYN Administration Insulin Human Lispro 0 units 04/07/20 15:52 04/30/20 12:24 Humalog SC 3 unit .MILD SLIDING SCALE PRN Administration Mild Correctional Scale Insulin Human Lispro 0 units 04/07/20 15:52 04/23/20 20:26 Humalog SC 5 unit .BEDTIME SLIDING SC PRN Administration Bedtime Correctional Scale Metoprolol Succinate 25 mg 04/15/20 09:00 04/30/20 08:00 Toprol Xl PO 25 mg QAM KAYLYN Administration Mometasone Furoate 200 mcg 04/19/20 18:30 04/30/20 06:00 Asmanex Hfa 100 Mcg INH Not Given BID-RT KAYLYN Morphine Sulfate 2 mg 04/21/20 18:53 04/26/20 10:25 Morphine SLOW IVP 2 mg Q4H PRN Administration Pain Multivitamins 1 tab 04/15/20 09:00 04/30/20 08:00 Theragran PO 1 tab DAILY KAYLYN Administration Pantoprazole Sodium 40 mg 04/29/20 21:00 04/29/20 20:33 Protonix PER TUBE 40 mg HS KAYLYN Administration Polyethylene Glycol 17 gm 04/18/20 09:00 04/30/20 07:59 Miralax PER TUBE 17 gm DAILY KAYLYN Administration Sodium Chloride 10 ml 04/08/20 14:44 04/15/20 08:52 Flush - Normal Saline IVF 10 ml PRN PRN Administration Saline Flush - Exam General Appearance: ill appearing General - other findings: sleeping, Eye: PERRL ENT: normocephalic atraumatic Neck: supple Hosp A/P - Plan (1) Acute respiratory failure with hypoxia Code(s): J96.01 - ACUTE RESPIRATORY FAILURE WITH HYPOXIA Status: Acute Plan: Persistent high-O2 requirement, continue NRB, pulmonary support, wean as clinically indicated (2) COVID-19 Code(s): U07.1 - COVID-19 Status: Acute Plan: Continue supportive mgmt, Albuterol/Doxycycline/Solumedrol/O2 support, -it appears that sicne onset of sxs likely 15 to 20 days. -worsening resp..condition requiring high flow O2. (3) Acute kidney injury Code(s): N17.9 - ACUTE KIDNEY FAILURE, UNSPECIFIED Status: Acute Plan: -good urine output y'day - so dialysis on hold (1) Acute respiratory failure with hypoxia Code(s): J96.01 - ACUTE RESPIRATORY FAILURE WITH HYPOXIA Status: Acute Plan: Persistent high-O2 requirement, continue NRB, pulmonary support, wean as clinically indicated (2) COVID-19 Code(s): U07.1 - COVID-19 Status: Acute Plan: Continue supportive mgmt, Albuterol/Doxycycline/Solumedrol/O2 support, consult ID today for any further recommendations (3) Acute kidney injury Code(s): N17.9 - ACUTE KIDNEY FAILURE, UNSPECIFIED Status: Acute Plan: -he is voiding, w.. good output yda;y - HD on hold - if he did improve, femoral cath to be removed. (4) Severe sepsis with septic shock Code(s): A41.9 - SEPSIS, UNSPECIFIED ORGANISM; R65.21 - SEVERE SEPSIS WITH SEPTIC SHOCK Status: Acute -coag neg staph on -rept bl virgil of 04/21- no growth - on vanc and merum (5) Hyperkalemia Code(s): E87.5 - HYPERKALEMIA Status: Acute (6) Cerebral palsy Code(s): G80.9 - CEREBRAL PALSY, UNSPECIFIED Status: Chronic Qualifiers: Cerebral palsy type: unspecified type Qualified Code(s): G80.9 - Cerebral palsy, unspecified continue TF's with Nephro HD per Renal service Hypoxia due to COVID -improved to a level, now he is only on O2 by [place]. plan to remv tunnel cath -family discussing w.. hospice reg.. all options incl'd PEG tube evaluation -palliative on board -if PEG is an option, then will consult sux for the same. - likely then, can be transferred back to his residential facility in [place] - I talk to palliative on Friday, and son, Duran wants to d/w hospice. -now he is in medical floor -- prob things would be finalized on Friday.
[2020-04-30] MEDS: Enoxaparin Sodium 30 MG/0.3 ML SYRINGE SC SCH (20:46)
[2020-04-30] MEDS: Pantoprazole 40 MG GRANULES PACKET PER TUBE SCH (20:50)
[2020-05-01] MEDS: Fluconazole In NaCl,Iso-Osm 400 MG in Premix Bag 1 BAG IVPB SCH (01:00)
[2020-05-01] MEDS: Albuterol 200 PUFF (6.7GM INHALER) INH SCH ×4 (01:01→19:28)
--- NOTE | 2020-05-01 01:50 | CON ---
DATE OF CONSULTATION: 04/30/2020 CHIEF COMPLAINT: Inability to swallow. HISTORY OF PRESENT ILLNESS: Mr. Nunn is a 59-year-old man with cerebral palsy who was admitted from a long-term nursing facility on 04/07/2020, with pneumonia associated with COVID-19 and septic shock and hypoxic respiratory failure and acute kidney injury, requiring dialysis. The patient now remains nonresponsive verbally. He does not follow commands. He does not answer any questions. He will not squeeze my fingers on command. He is bed-bound and noncommunicative. He has been unable to eat and has had a Dobbhoff tube in place. GI was consulted to evaluate for PEG tube placement. Last week when the family had talked with Palliative Care, the family was leaning against placing a PEG tube for him. They were discussing hospice care. Over the weekend, the family has changed course and is stating that they want anything done that could help him survive. PAST MEDICAL HISTORY: Cerebral palsy, diabetes mellitus, hypertension, hyperlipidemia, peripheral neuropathy, has been bed-bound, now admitted with COVID-19 pneumonia and renal failure. PAST SURGICAL HISTORY: He has had multiple spine surgeries for scoliosis. He has had Achilles tendon surgery and cervical spine surgery. FAMILY HISTORY: Negative for GI malignancy. SOCIAL HISTORY: He is a [facility] resident, bed bound. No alcohol, tobacco, or drugs. ALLERGIES: NO KNOWN DRUG ALLERGIES. CURRENT INPATIENT MEDICATIONS: Include, 1. Albuterol. 2. Enoxaparin. 3. Ferrous sulfate. 4. Fluconazole. 5. Neurontin. 6. Meropenem. 7. Insulin. 8. Metoprolol. 9. Mometasone. 10. Multivitamin. 11. Pantoprazole. 12. Polyethylene glycol. 13. Vancomycin. REVIEW OF SYSTEMS: Unobtainable given his mental status. PHYSICAL EXAMINATION: VITAL SIGNS: Temperature 97.7, pulse 98, blood pressure 131/84. GENERAL: He is in no acute distress. He is on 2 L nasal cannula. Oxygen saturation 95%. HEENT: His eyes have no scleral icterus. Oropharynx is clear without lesions. No cervical or supraclavicular lymphadenopathy. LUNGS: Clear to auscultation anteriorly. HEART: Regular rate and rhythm without murmur. ABDOMEN: Soft and nondistended. No scars in the left upper abdomen. Bowel sounds are present. EXTREMITIES: No lower extremity edema. LABORATORY DATA: White blood cell count 10.7, hemoglobin 8.3, platelets 147. Creatinine 0.6. IMPRESSION: 1. Oropharyngeal dysphagia. He is unable to eat, and he is noncommunicative and noninteractive. 2. Cerebral palsy with bed-bound state. The patient's family has considered hospice care, but seemed to be backtracking on the some degree now. RECOMMENDATIONS: 1. We will discuss with Dr. Westbrook, and ask for reassessment. Palliative care Team last time they spoke with the patient's family was Friday, and at that time, they were leaning against PEG tube placement. The patient's family appears to change course and is stating that they want anything done that would help him survive. I am not sure that a PEG tube would add any meaningful recovery for this patient and also potentially create unnecessary exposure. 2. We can tentatively plan for PEG tube placement for tomorrow afternoon or the next day, but I will await additional consideration by the Palliative Team and consider ethics committee if deemed necessary by the Palliative Care Team and also follow up with Dr. Westbrook. Job ID: [id number]
[2020-05-01] MEDS: Mometasone 100 MCG/PUFF (1 INHALER) INH SCH ×2 (06:07→19:28)
[2020-05-01 06:19] LABS: Anion Gap 12 mmol/L (10-20); BUN (Urea Nitrogen) 14 mg/dL (8.4-25.7); Calc. Creatinine Clearance 156 mL/min (70-130); Calcium 7.8 mg/dL (7.8-10.44); Carbon Dioxide 24 mmol/L (22-29); Chloride 110 mmol/L (98-107); Estimated GFR-MDRD Greater than 90; Glucose 88 mg/dL (70-105); Potassium 3.7 mmol/L (3.5-5.1); Sodium 142 mmol/L (136-145)
[2020-05-01 06:20] LABS: Vancomycin, Trough 36.4 ug/mL
[2020-05-01] MEDS: Vancomycin 1 GM in Premix Bag 1 BAG IVPB SCH (06:22)
[2020-05-01] MEDS: Morphine 2 MG/ML VIAL SLOW IVP PRN (06:24)
[2020-05-01] MEDS: Calcium Carbonate 500 MG ChewTAB PER TUBE SCH ×3 (08:18→21:21)
[2020-05-01] MEDS: HumuLIN 70/30 (300 UNITS/3 ML VIAL) SC SCH ×2 (08:18→21:59)
[2020-05-01] MEDS: Multivit, Therapeutic 1 TAB PO SCH (08:18)
[2020-05-01] MEDS: Gabapentin 300 MG CAP PO SCH (08:18)
[2020-05-01] MEDS: Polyethylene Glycol 3350 17 GM Packet PER TUBE SCH (08:20)
[2020-05-01] MEDS: MEROPENEM 1 GM/50 ML 1 GM in Premix Bag 1 BAG IVPB SCH ×2 (11:03→22:00)
--- NOTE | 2020-05-01 12:08 | PDOC.HOSPP ---
- Subjective Encounter Date: 05/01/20 Encounter Time: 10:15 Subjective: Patient seen and examined bedside today, patient is not able to participate with any conversation, he is encephalopathic - Objective Vital Signs & Weight: Vital Signs (12 hours) Temp Pulse Resp BP Pulse Ox 05/01/20 08:00 98.5 F 106 H 20 164/98 H 91 L 05/01/20 03:50 94 L Weight Admit Weight 149 lb 7.574 oz Weight 163 lb 12.855 oz Most Recent Monitor Data Heart Rate from ECG 96 NIBP 99/60 NIBP BP-Mean 73 Respiration from ECG 23 SpO2 100 I&O: 04/30/20 05/01/20 05/02/20 06:59 06:59 06:59 Intake Total 2850 2400 Output Total 3350 3850 Balance -500 -1450 Result Diagrams: 04/30/20 05:51 05/01/20 05:20 Radiology Reviewed by me: Yes EKG Reviewed by me: Yes Hospitalist ROS - Review of Systems ROS unobtainable: due to mental status - Medication Medications: Active Medications Generic Name Dose Route Start Last Admin Trade Name Freq PRN Reason Stop Dose Admin Albuterol Sulfate 1 puff 04/07/20 19:00 05/01/20 06:51 Proventil Hfa INH Not Given [id number] KAYLYN Calcium Carbonate 500 mg 04/25/20 15:00 05/01/20 08:18 Tums PER TUBE 500 mg TID KAYLYN Administration Cyclobenzaprine HCl 10 mg 04/14/20 19:51 04/20/20 20:58 Flexeril PO 10 mg TIDPRN PRN Administration . Enoxaparin Sodium 30 mg 04/14/20 21:00 04/30/20 20:46 Lovenox SC 30 mg 2100 KAYLYN Administration Ferrous Sulfate 325 mg 04/30/20 17:00 05/01/20 09:30 Ferrous Sulfate PO 325 mg 1000,1700 KAYLYN Administration Gabapentin 300 mg 04/15/20 09:00 05/01/20 08:18 Neurontin PO 300 mg DAILY KAYLYN Administration Fluconazole/Sodium Chloride 200 mls @ 100 mls/hr 04/29/20 23:59 05/01/20 01: 00 400 mg/ Device IVPB 200 mls 2359 KAYLYN Administration Meropenem 1 gm/ Device 50 mls @ 200 mls/hr 04/30/20 11:00 05/01/20 11:03 IVPB 50 mls 1100,2300 KAYLYN Administration Insulin Human Isoph/Insulin Regular 15 units 04/18/20 21:00 05/01/20 08:18 Humulin 70/30 SC 15 unit BID KAYLYN Administration Insulin Human Lispro 0 units 04/07/20 15:52 04/30/20 12:24 Humalog SC 3 unit .MILD SLIDING SCALE PRN Administration Mild Correctional Scale Insulin Human Lispro 0 units 04/07/20 15:52 04/23/20 20:26 Humalog SC 5 unit .BEDTIME SLIDING SC PRN Administration Bedtime Correctional Scale Metoprolol Succinate 25 mg 04/15/20 09:00 05/01/20 08:18 Toprol Xl PO 25 mg QAM KAYLYN Administration Mometasone Furoate 200 mcg 04/19/20 18:30 05/01/20 06:07 Asmanex Hfa 100 Mcg INH Not Given BID-RT KAYLYN Morphine Sulfate 2 mg 04/21/20 18:53 05/01/20 06:24 Morphine SLOW IVP 2 mg Q4H PRN Administration Pain Multivitamins 1 tab 04/15/20 09:00 05/01/20 08:18 Theragran PO 1 tab DAILY KAYLYN Administration Pantoprazole Sodium 40 mg 04/29/20 21:00 04/30/20 20:50 Protonix PER TUBE Not Given HS KAYLYN Polyethylene Glycol 17 gm 04/18/20 09:00 05/01/20 08:20 Miralax PER TUBE 17 gm DAILY KAYLYN Administration Sodium Chloride 10 ml 04/08/20 14:44 04/15/20 08:52 Flush - Normal Saline IVF 10 ml PRN PRN Administration Saline Flush - Exam General Appearance: NAD, ill appearing Eye: PERRL, anicteric sclera ENT: normocephalic atraumatic, dry oral mucosa ENT - other findings: NG tube in place Neck: supple, symmetric, no JVD Heart: RRR, no murmur, no gallops, no rubs Respiratory - other findings: Reduced air entry, coarse breath sounds Gastrointestinal: soft, non-tender, non-distended, normal bowel sounds Extremities: no cyanosis, no clubbing, 1+ LE edema Skin: normal turgor Musculoskeletal: normal tone Psychiatric: not oriented Hosp A/P - Plan old records reviewed/req, continue antibiotics, 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 social 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 Consults: Palliative Care Assessment Severe sepsis with septic shock on admission Acute respiratory failure due to COVID-19 Acute kidney failure with the severe metabolic acidosis required hemodialysis, improved renal function Abnormal electrolytes, corrected Viral pneumonia due to COVID-19 virus Acute metabolic encephalopathy Oropharyngeal dysphagia Anemia of chronic disease History of dyslipidemia Hypertension Gastroesophageal reflux disease Plan Patient is continued to be encephalopathic I pretty much sure that he will not be able to participate with the speech therapy, he will require PEG tube placement for at least short time ., Currently patient has pulled out Dobbhoff tube so we will place NG tube Currently patient is on fluconazole, meropenem and vancomycin, infectious disease team is following, Palliative care is on the case and they are discussing with the family member about goal of care
--- NOTE | 2020-05-01 17:47 | PRG ---
DATE OF SERVICE: 05/01/2020 SUBJECTIVE: Edouard is awake, does not interact with the examiner, roving eye movements. He is groaning and moaning, but does not appear in distress. OBJECTIVE: VITAL SIGNS: He has been afebrile for quite a few days. O2 saturations are 91% on 2 L. LUNGS: Fairly clear breath sounds. HEART: S1 and S2. Regular rate. ABDOMEN: Soft, not distended. LABORATORY DATA: Creatinine 0.55; AST 132, has not been repeated since the ; ALT 274; alkaline phosphatase 141. ASSESSMENT AND DISCUSSION: Cerebral palsy; COVID pneumonia, probably resolved; and fever. This is the almost 30 years after disease onset. The fever is most likely due to catheter in the groin has been removed. He was having issues with hypernatremia, which now has resolved. Job ID: [id number]
[2020-05-01] MEDS ORDERED: Vancomycin 1 GM in Premix Bag 1 BAG IVPB SCH (18:00)
[2020-05-01 18:24] LABS: Vancomycin, Random 19.9 ug/mL (See Comment)
--- NOTE | 2020-05-01 18:56 | PRG ---
DATE OF SERVICE: 05/01/2020 SUBJECTIVE: Mr. Nunn is not verbally interactive. He moans when he exhales. He is tachypneic. OBJECTIVE: VITAL SIGNS: Temperature is 98.5, pulse 106, blood pressure 164/98, oxygen saturation 91% on 2 L nasal cannula. ABDOMEN: Soft, nontender, and nondistended. IMPRESSION: 1. Oropharyngeal dysphagia secondary to encephalopathy. 2. Cerebral palsy and debilitated state, bed-bound, jail bound. 3. COVID-19 pneumonia, appears to be clinically improved. He is 3 weeks into his hospital admission and should be to point that he is shedding less virus and should be relatively lower risk for endoscopy. He still, however, is tachypneic with oxygen saturation of 91% on 2 L nasal cannula. He was just on high-flow oxygen a couple of days ago. RECOMMENDATIONS: 1. Continue nasogastric tube feeds. 2. PEG tube can be placed as the patient's respiratory status continues to improve. I would like to see his oxygen requirements continue to improve further. 3. I will also await followup between Palliative Care and the patient's brother. 4. Dr. Welch will be covering for the GI Service tomorrow. Job ID: [id number]
[2020-05-01] MEDS: Pantoprazole 40 MG GRANULES PACKET PER TUBE SCH (21:21)
[2020-05-01] MEDS: Enoxaparin Sodium 30 MG/0.3 ML SYRINGE SC SCH (21:22)
[2020-05-02] MEDS: Fluconazole In NaCl,Iso-Osm 400 MG in Premix Bag 1 BAG IVPB SCH ×2 (00:05→22:42)
[2020-05-02] MEDS: Vancomycin 1 GM in Premix Bag 1 BAG IVPB SCH ×3 (00:50→23:59)
[2020-05-02] MEDS: Albuterol 200 PUFF (6.7GM INHALER) INH SCH ×4 (01:02→18:33)
[2020-05-02] MEDS ORDERED: Metoclopramide HCl 10 MG/2 ML VIAL IVP PRN (08:15)
[2020-05-02] MEDS ORDERED: Labetalol HCl 100 MG/20 ML VIAL SLOW IVP PRN (08:15)
[2020-05-02] MEDS ORDERED: Acetaminophen 650 MG Suppository PR PRN (08:15)
[2020-05-02] MEDS ORDERED: Furosemide 40 MG/4 ML VIAL SLOW IVP SCH (08:15)
[2020-05-02] MEDS ORDERED: Fleet Enema 133 ML BOT PR SCH (08:15)
[2020-05-02] MEDS ORDERED: Cepastat Lozenges 1 LOZ PO PRN (08:15)
[2020-05-02] MEDS ORDERED: diphenhydrAMINE 50 MG/ML VIAL IVP PRN (08:15)
[2020-05-02] MEDS ORDERED: Sodium Chloride 0.65% Nasal 44 ML BOT EA NARE PRN (08:15)
[2020-05-02] MEDS ORDERED: Nystatin Powder 15 GM BOT TOP PRN (08:15)
[2020-05-02] MEDS ORDERED: hydrALAZINE 20 MG/ML VIAL SLOW IVP PRN (08:15)
[2020-05-02] MEDS ORDERED: Ondansetron ODT 4 MG TAB SL PRN (08:16)
--- NOTE | 2020-05-02 08:41 | RAD ---
KUB: HISTORY: NG tube placement. COVID pneumonia. COMPARISON: 04/16/2020 exam. FINDINGS: An NG tube is present, the tip is in the fundus region of the stomach. This KUB was obtained as a hi gh KUB film. The lower abdomen is not included. The bowel gas pattern appears nonobstructive. Pare nchymal lung changes appear similar to the previous exam. IMPRESSION: Placement of an nasogastric tube. The tip is in the fundus of the stomach. POS: NELSON
[2020-05-02] MEDS: Dextrose 5 % And 0.9 % NaCl 1,000 ML IV SCH (09:57)
[2020-05-02] MEDS: Mometasone 100 MCG/PUFF (1 INHALER) INH SCH ×2 (09:57→18:32)
[2020-05-02] MEDS: Multivit, Therapeutic 1 TAB PO SCH (09:58)
[2020-05-02] MEDS: Polyethylene Glycol 3350 17 GM Packet PER TUBE SCH (09:58)
[2020-05-02] MEDS: Calcium Carbonate 500 MG ChewTAB PER TUBE SCH ×2 (09:58→13:30)
[2020-05-02] MEDS: HumuLIN 70/30 (300 UNITS/3 ML VIAL) SC SCH ×2 (09:58→21:00)
[2020-05-02] MEDS: Gabapentin 300 MG CAP PO SCH (09:58)
[2020-05-02] MEDS: Pantoprazole 40 MG VIAL IVP SCH (10:00)
[2020-05-02 11:39] VITALS: BMI 23.2
--- NOTE | 2020-05-02 12:40 | PDOC.HOSPP ---
- Subjective Encounter Date: 05/02/20 Encounter Time: 10:45 Subjective: Patient is still confused, patient is arousable, patient is pulling out his NG tube frequently, currently he has no NG tube in place, as per palliative care patient's family member has decided about PEG tube placement, - Objective Vital Signs & Weight: Vital Signs (12 hours) Temp Pulse Resp BP Pulse Ox 05/02/20 08:00 98.0 F 118 H 18 154/95 H 94 L Weight Admit Weight 149 lb 7.574 oz Weight 165 lb 12.602 oz Most Recent Monitor Data Heart Rate from ECG 96 NIBP 99/60 NIBP BP-Mean 73 Respiration from ECG 23 SpO2 100 I&O: 05/01/20 05/02/20 05/03/20 06:59 06:59 06:59 Intake Total 2400 400 Output Total 3850 1950 Balance -1450 -1550 Result Diagrams: 04/30/20 05:51 05/01/20 05:20 Additional Labs: Accuchecks 05/02/20 05/02/20 05/02/20 11:31 11:31 04:20 POC Glucose 131 H 131 H 88 05/01/20 05/01/20 05/01/20 22:23 11:11 06:35 POC Glucose 146 H 144 H 107 05/01/20 04/30/20 04/30/20 01:23 21:40 12:19 POC Glucose 99 89 219 H 04/30/20 04/29/20 04/29/20 05:29 23:53 20:41 POC Glucose 133 H 130 H 182 H Hospitalist ROS - Review of Systems ROS unobtainable: due to mental status - Medication Medications: Active Medications Generic Name Dose Route Start Last Admin Trade Name Freq PRN Reason Stop Dose Admin Albuterol Sulfate 1 puff 04/07/20 19:00 05/02/20 09:57 Proventil Hfa INH Not Given [id number] KAYLYN Calcium Carbonate 500 mg 04/25/20 15:00 05/02/20 09:58 Tums PER TUBE Not Given TID KAYLYN Cyclobenzaprine HCl 10 mg 04/14/20 19:51 04/20/20 20:58 Flexeril PO 10 mg TIDPRN PRN Administration . Enoxaparin Sodium 30 mg 04/14/20 21:00 05/01/20 21:22 Lovenox SC 30 mg 2100 KAYLYN Administration Ferrous Sulfate 325 mg 04/30/20 17:00 05/02/20 09:59 Ferrous Sulfate PO Not Given 1000,1700 KAYLYN Gabapentin 300 mg 04/15/20 09:00 05/02/20 09:58 Neurontin PO Not Given DAILY KAYLYN Fluconazole/Sodium Chloride 200 mls @ 100 mls/hr 04/29/20 23:59 05/02/20 00: 05 400 mg/ Device IVPB 200 mls 2359 KAYLYN Administration Meropenem 1 gm/ Device 50 mls @ 200 mls/hr 04/30/20 11:00 05/01/20 22:00 IVPB 50 mls 1100,2300 KAYLYN Administration Vancomycin HCl 1 gm/ Device 200 mls @ 200 mls/hr 05/01/20 23:59 05/02/20 11: 22 IVPB 200 mls 1200,2359 KAYLYN Administration Dextrose/Sodium Chloride 1,000 mls @ 50 mls/hr 05/02/20 08:15 05/02/20 09:57 D5 0.9% Ns IV 1,000 mls .Q20H KAYLYN Administration Insulin Human Isoph/Insulin Regular 15 units 04/18/20 21:00 05/02/20 09:58 Humulin 70/30 SC Not Given BID KAYLYN Insulin Human Lispro 0 units 04/07/20 15:52 04/30/20 12:24 Humalog SC 3 unit .MILD SLIDING SCALE PRN Administration Mild Correctional Scale Insulin Human Lispro 0 units 04/07/20 15:52 04/23/20 20:26 Humalog SC 5 unit .BEDTIME SLIDING SC PRN Administration Bedtime Correctional Scale Mometasone Furoate 200 mcg 04/19/20 18:30 05/02/20 09:57 Asmanex Hfa 100 Mcg INH Not Given BID-RT KAYLYN Multivitamins 1 tab 04/15/20 09:00 05/02/20 09:58 Theragran PO Not Given DAILY [facility] Pantoprazole Sodium 40 mg 05/02/20 09:00 05/02/20 10:00 Protonix IVP 40 mg DAILY KAYLYN Administration Polyethylene Glycol 17 gm 04/18/20 09:00 05/02/20 09:58 Miralax PER TUBE Not Given DAILY [facility] Sodium Chloride 10 ml 04/08/20 14:44 04/15/20 08:52 Flush - Normal Saline IVF 10 ml PRN PRN Administration Saline Flush - Exam General Appearance: NAD, ill appearing Eye: PERRL, anicteric sclera ENT: normocephalic atraumatic, dry oral mucosa Neck: supple, symmetric, no JVD Heart: RRR, no murmur, no gallops Respiratory - other findings: Coarse breath sounds noted Gastrointestinal: soft, non-tender, non-distended Extremities: 1+ LE edema Skin: normal turgor Musculoskeletal: normal tone Psychiatric: not oriented Hosp A/P - Plan old records reviewed/req, parrish catheter, social service liaison Consults: Palliative Care Assessment Severe sepsis with septic shock on admission Acute respiratory failure due to COVID-19 Acute kidney failure with the severe metabolic acidosis required hemodialysis, improved renal function Abnormal electrolytes, corrected Viral pneumonia due to COVID-19 virus Acute metabolic encephalopathy Oropharyngeal dysphagia Anemia of chronic disease History of dyslipidemia Hypertension Gastroesophageal reflux disease Plan We will keep on hold for NG tube placement given patient is recurrently pulling out Family has decided about PEG tube placement and GI already on the case Today I will give him 1 dose of Lasix We will continue gentle IV fluids to prevent hypoglycemia We will continue current IV fluconazole meropenem and vancomycin We will change Protonix to IV daily His long-term prognosis is still very poor, Once PEG tube has been placed then will initiate discharge process
[2020-05-02] MEDS: MEROPENEM 1 GM/50 ML 1 GM in Premix Bag 1 BAG IVPB SCH ×2 (13:30→22:43)
--- NOTE | 2020-05-02 19:53 | PRG ---
DATE OF SERVICE: REASON FOR CONSULTATION: Oropharyngeal dysphagia secondary to encephalopathy with possible PEG tube placement. SUBJECTIVE: Overnight, the patient's Dobhoff tube was removed on 2 separate occasions with attempts to replace it unsuccessful each time. It is unclear as to how the patient has been removing it, but on each occasion, the placement was not confirmed by KUB. Per speaking with nursing staff earlier today, the patient continues to be fairly unresponsive to verbal and tactile stimuli. He also continues to be relatively hypoxic saturating approximately 90% to 91% on 2 L nasal cannula. Otherwise, there is no mention of vomiting, fever, hematemesis, melena, or hematochezia. OBJECTIVE: VITAL SIGNS: Temperature 98, pulse 118, blood pressure 154/95, respiratory rate 18, and saturating 94% on 2 L nasal cannula. A complete physical exam was not performed due to the patient's COVID-19 status. LABORATORY DATA: No current studies are available for review. IMAGING DATA: No current GI imaging is available for review. ASSESSMENT AND PLAN: The patient is a 59-year-old male, with past medical history of diabetes, hypertension, hyperlipidemia, peripheral neuropathy, and cerebral palsy with quadriplegia who was initially admitted to the hospital with septic shock and hypoxic respiratory failure in addition to testing positive for COVID-19, now with oropharyngeal dysphagia secondary to his encephalopathy. Oropharyngeal dysphagia. The patient is presenting with a fairly complicated hospital course further complicated by oropharyngeal dysphagia and inability to tolerate anything by mouth with risk of aspiration. Upon review of the patient's chart, the palliative care team had been consulted and near the end of last week, the patient's family appeared to not want the placement of a percutaneous gastrostomy tube for further nutritional purposes. However, upon reading the palliative care team's notes earlier today, it appears that the family has changed their mind and at this time does want placement of a percutaneous gastrostomy tube prior to being discharged back to an assisted living facility. Given the patient's COVID-19 status, he has been having improving respiratory function, but still continues to sat in the low 90% while on 2 L nasal cannula. With his respiratory status compromised at the current time, an endoscopically placed percutaneous gastrostomy tube has a higher risk of complication at least at the current point in time and is ill-advised until improvement in his respiratory status. RECOMMENDATIONS: 1. Would continue to monitor the patient's status daily for improvement in the respiratory status prior to placing the percutaneous gastrostomy tube. 2. We would recommend replacement of the Dobhoff tube for nutritional purposes while waiting for the patient's respiratory status to improve. 3. Continue current treatments for COVID-19 virus. 4. Clarification is being made with the palliative care team about the necessity of the percutaneous gastrostomy tube, if the patient is to be discharged to hospice care. Given the higher risk of complication with this patient and especially in light of the patient's respiratory status, this particular subject needs to be revisited by the palliative care team given that it will not improve the patient's longevity nor will increase his functional status. We will continue to follow. Please call with any questions. Job ID: [id number]
[2020-05-02] MEDS: Enoxaparin Sodium 30 MG/0.3 ML SYRINGE SC SCH (21:00)
[2020-05-03] MEDS: Albuterol 200 PUFF (6.7GM INHALER) INH SCH ×3 (01:00→11:47)
[2020-05-03] MEDS: Calcium Carbonate 500 MG ChewTAB PER TUBE SCH ×4 (04:08→22:36)
[2020-05-03] MEDS: Dextrose 5 % And 0.9 % NaCl 1,000 ML IV SCH (04:47)
[2020-05-03 05:51] LABS: Hemoglobin 7.6 g/dL (14.0-18.0); Mean Corpuscular HGB CONC 30.4 g/dL (32.0-36.0); Mean Corpuscular Hemoglobin 25.7 pg (27.0-31.0); Mean Corpuscular Volume 84.5 fL (78.0-98.0); Platelet Count 245 thou/uL (130-400); RBC Distribution Width 16.9 % (11.5-14.5); Red Blood Cell (RBC) Count 2.97 mill/uL (4.70-6.10)
[2020-05-03 06:08] LABS: #Eosinphils 0.3 thou/uL (0.0-0.7); #Lymphocytes 1.1 thou/uL (1.20-3.40); #Monocytes 0.6 thou/uL (0.11-0.59); #Neutrophils 12.9 thou/uL (1.40-6.50); %Basophils 0.1 % (0.0-1.0); %Eosinophils 1.9 % (0.0-10.0); %Lymphocytes 7.6 % (21.0-51.0); %Monocytes 4.3 % (0.0-10.0); %Neutrophils 86.1 % (42.0-75.0); Anisocytosis SLIGHT = 6-15 cells (100X) (0-5/hpf); MDiff Complete? YES
[2020-05-03 06:14] LABS: ALT (SGPT) 54 U/L (8-55); AST (SGOT) 31 U/L (5-34); Albumin 2.5 g/dL (3.5-5.0); Alkaline Phosphatase 121 U/L (40-110); Anion Gap 15 mmol/L (10-20); BUN (Urea Nitrogen) 11 mg/dL (8.4-25.7); Bilirubin, Total 0.2 mg/dL (0.2-1.2); Calc. Creatinine Clearance 128 mL/min (70-130); Calcium 7.8 mg/dL (7.8-10.44); Carbon Dioxide 23 mmol/L (22-29); Chloride 108 mmol/L (98-107); Estimated GFR-MDRD Greater than 90; Globulin 2.7 g/dL (2.4-3.5); Glucose 209 mg/dL (70-105); Potassium 3.5 mmol/L (3.5-5.1); Protein, Total 5.2 g/dL (6.0-8.3); Sodium 142 mmol/L (136-145)
[2020-05-03] MEDS: Gabapentin 300 MG CAP PO SCH (07:27)
[2020-05-03] MEDS: Multivit, Therapeutic 1 TAB PO SCH (07:27)
[2020-05-03] MEDS: Polyethylene Glycol 3350 17 GM Packet PER TUBE SCH (07:27)
--- NOTE | 2020-05-03 08:16 | RAD ---
ABDOMEN 1 VIEW: Date: 05/02/2020 HISTORY: Dobbhoff tube placement. FINDINGS/IMPRESSION: There has been interval removal of the nasogastric tube since the previous day's exam. A feeding tube has been placed with tip in the proximal stomach close to the GE junction. POS: OFF
[2020-05-03] MEDS: Pantoprazole 40 MG VIAL IVP SCH (09:47)
[2020-05-03] MEDS: Mometasone 100 MCG/PUFF (1 INHALER) INH SCH ×2 (09:48→17:53)
[2020-05-03] MEDS: HumuLIN 70/30 (300 UNITS/3 ML VIAL) SC SCH ×2 (09:50→22:35)
[2020-05-03] MEDS: MEROPENEM 1 GM/50 ML 1 GM in Premix Bag 1 BAG IVPB SCH ×2 (09:52→22:36)
--- NOTE | 2020-05-03 11:03 | RAD ---
EXAM: Single view of the chest HISTORY: Covid pneumonia COMPARISON: 04/24/2020 FINDINGS: Single view of the chest shows a normal sized cardiomediastinal silhouette. There are multi focal scattered opacities in the lungs. A Dobbhoff tube is seen with its tip in the stomach. Degenerative and postsurgical changes are seen in the spine. IMPRESSION: Stable multifocal pneumonia
--- NOTE | 2020-05-03 11:05 | RAD ---
EXAM: Single view of the abdomen HISTORY: Dobbhoff tube placement COMPARISON: 05/02/2020 FINDINGS: Single view of the abdomen shows a nonspecific, nonobstructive bowel gas pattern. A Dobbhof f tube is seen with its tip in the stomach. No suspicious calcifications are seen. Degenerative and postsurgical changes are seen in the spine. IMPRESSION: Dobbhoff tube located in the stomach.
[2020-05-03] MEDS: Vancomycin 1 GM in Premix Bag 1 BAG IVPB SCH (13:29)
[2020-05-03] MEDS ORDERED: Metoprolol Tartrate 25 MG TAB PO SCH (15:00)
--- NOTE | 2020-05-03 15:25 | EKG ---
Test Reason : Blood Pressure : / mmHG Vent. Rate : 109 BPM Atrial Rate : 109 BPM P-R Int : 162 ms QRS Dur : 080 ms QT Int : 278 ms P-R-T Axes : 038 022 082 degrees QTc Int : 374 ms Normal sinus rhythm Nonspecific ST-T changes Abnormal ECG Confirmed by YOGESH MAC M.D. ([id number]) on 05/03/2020 3:25:22 PM Referred By: JAMI Confirmed By:YOGESH MAC M.D.
--- NOTE | 2020-05-03 17:15 | PDOC.HOSPP ---
- Subjective Encounter Date: 05/03/20 Subjective: Makes eye contact and tracks, but is non verbal and does not respond to me otherwise. - Objective Vital Signs & Weight: Vital Signs (12 hours) Temp Pulse Resp BP Pulse Ox 05/03/20 12:00 99.1 F 125 H 20 161/97 H 98 05/03/20 10:36 98.9 F 115 H 20 180/77 H 96 05/03/20 08:00 96 Weight Admit Weight 149 lb 7.574 oz Weight 165 lb 12.6 oz Most Recent Monitor Data Heart Rate from ECG 96 NIBP 99/60 NIBP BP-Mean 73 Respiration from ECG 23 SpO2 100 I&O: 05/02/20 05/03/20 05/04/20 06:59 06:59 06:59 Intake Total 400 600 Output Total 1950 7830 850 Balance -4747 -2226 -601 Result Diagrams: 05/03/20 05:32 05/03/20 05:32 Hospitalist ROS - Medication Medications: Active Medications Generic Name Dose Route Start Last Admin Trade Name Freq PRN Reason Stop Dose Admin Albuterol Sulfate 1 puff 04/07/20 19:00 05/03/20 11:47 Proventil Hfa INH Not Given [id number] KAYLYN Calcium Carbonate 500 mg 04/25/20 15:00 05/03/20 11:47 Tums PER TUBE Not Given TID KAYLYN Cyclobenzaprine HCl 10 mg 04/14/20 19:51 04/20/20 20:58 Flexeril PO 10 mg TIDPRN PRN Administration . Enoxaparin Sodium 30 mg 04/14/20 21:00 05/02/20 21:00 Lovenox SC 30 mg 2100 KAYLYN Administration Ferrous Sulfate 325 mg 04/30/20 17:00 05/03/20 11:47 Ferrous Sulfate PO Not Given 1000,1700 KAYLYN Gabapentin 300 mg 04/15/20 09:00 05/03/20 07:27 Neurontin PO Not Given DAILY [facility] Fluconazole/Sodium Chloride 200 mls @ 100 mls/hr 04/29/20 23:59 05/02/20 22: 42 400 mg/ Device IVPB 200 mls 2359 KAYLYN Administration Meropenem 1 gm/ Device 50 mls @ 200 mls/hr 04/30/20 11:00 05/03/20 09:52 IVPB 50 mls 1100,2300 KAYLYN Administration Dextrose/Sodium Chloride 1,000 mls @ 50 mls/hr 05/02/20 08:15 05/03/20 04:47 D5 0.9% Ns IV 1,000 mls .Q20H KAYLYN Administration Insulin Human Isoph/Insulin Regular 15 units 04/18/20 21:00 05/03/20 09:50 Humulin 70/30 SC Not Given BID K[facility]LYN Insulin Human Lispro 0 units 04/07/20 15:52 04/30/20 12:24 Humalog SC 3 unit .MILD SLIDING SCALE PRN Administration Mild Correctional Scale Insulin Human Lispro 0 units 04/07/20 15:52 04/23/20 20:26 Humalog SC 5 unit .BEDTIME SLIDING SC PRN Administration Bedtime Correctional Scale Mometasone Furoate 200 mcg 04/19/20 18:30 05/03/20 09:48 Asmanex Hfa 100 Mcg INH Not Given BID-RT KAYLYN Multivitamins 1 tab 04/15/20 09:00 05/03/20 07:27 Theragran PO Not Given DAILY [facility] Pantoprazole Sodium 40 mg 05/02/20 09:00 05/03/20 09:47 Protonix IVP 40 mg DAILY [facility] Administration Polyethylene Glycol 17 gm 04/18/20 09:00 05/03/20 07:27 Miralax PER TUBE Not Given DAILY [facility] Sodium Chloride 10 ml 04/08/20 14:44 04/15/20 08:52 Flush - Normal Saline IVF 10 ml PRN PRN Administration Saline Flush - Exam General Appearance: NAD, awake alert Heart: RRR, no murmur, no gallops, no rubs, normal peripheral pulses Heart - other findings: Tachy Respiratory: CTAB, no wheezes, no rales, no ronchi, normal chest expansion, no tachypnea, normal percussion Gastrointestinal: soft, non-tender, non-distended, normal bowel sounds, no palpable masses Extremities: no cyanosis, no clubbing, no edema Neurological: no focal deficits Psychiatric - other findings: Non-verbal. Hosp A/P (1) Acute respiratory failure with hypoxia Code(s): J96.01 - ACUTE RESPIRATORY FAILURE WITH HYPOXIA Status: Acute (2) COVID-19 Code(s): U07.1 - COVID-19 Status: Acute (3) Severe sepsis with septic shock Code(s): A41.9 - SEPSIS, UNSPECIFIED ORGANISM; R65.21 - SEVERE SEPSIS WITH SEPTIC SHOCK Status: Acute (4) Cerebral palsy Code(s): G80.9 - CEREBRAL PALSY, UNSPECIFIED Status: Chronic Qualifiers: Cerebral palsy type: unspecified type Qualified Code(s): G80.9 - Cerebral palsy, unspecified (5) HTN (hypertension) Code(s): I10 - ESSENTIAL (PRIMARY) HYPERTENSION Status: Chronic Qualifiers: Hypertension type: essential hypertension Qualified Code(s): I10 - Essential (primary) hypertension (6) ARF (acute renal failure) Status: Resolved (7) Leukocytosis Code(s): D72.829 - ELEVATED WHITE BLOOD CELL COUNT, UNSPECIFIED Status: Acute - Plan Patient is stable, but still unable to take po's. A decision needs to be made regarding possible hospice and/or PEG placement. The patient's brother, Duran, is the decision maker. I attempted to call him today and got voicemail. Dr. Figueroa was able to connect with him and again explain that the PEG has not been proven to improve QOL or longevity. Additionally, he reviewed the patient's KUB and found that the stomach and bowel are overlying the stomach. This would make endoscopic PEG placement impossible. He would require lap assisted placement. Druan is still unsure of the plan. Continue DHT feeds for now. Leukocytosis: On Vanc and Meropenem. No specific source of infection identified at this time. Recheck tomorrow. Would anticipate stopping the antibiotics soon. Anemia: Daily variability in numbers. Slightly lower today. Likely chronic disease at this point. Follow. ARF: GFR is now normal.
--- NOTE | 2020-05-03 17:34 | PRG ---
DATE OF SERVICE: 05/03/2020 SUBJECTIVE: The patient remains unchanged. Dobhoff was able to be replaced overnight. KUB this morning did confirm intragastric placement. PHYSICAL EXAMINATION: VITAL SIGNS: Temperature 99.1, blood pressure 161/97, pulse of 125. Exam was not performed because of positive COVID-19. KUB showed tip of Dobhoff tube in the proximal stomach. Of note, there is small bowel and colon completely overlie the mid to upper left abdomen up to the level of the left diaphragm. ASSESSMENT AND PLAN: Oropharyngeal dysphagia with inability to tolerate anything by mouth. I did speak to Mr. Logan Acosta, his brother, who has the POA. The 1st issue is the inability to place the gastrostomy feeding tube percutaneously and blindly with endoscopy as his KUB demonstrated overlying small bowel and colon anterior to the stomach. We also spoke about the unlikelihood of any feeding tube will improve his quality of life. If the family decides to proceed with the feeding tube, this will have to be placed surgically. With his respiratory status from COVID-19 infection, this would be a very risky procedure, and there is a very good chance that if he were to be ventilated for any surgical procedure, Mr. Nunn may have to remain on the vent and may not be able to get off the vent. His brother is still undecided at the present time, but I suspect he is leaning toward not having any tube feeding placement. Since a percutaneous endoscopic gastrostomy tube placement can not be placed because of his anatomy, if family decides to proceed with feeding tube, please consult Surgery. Otherwise, GI will sign off for now, please recall if needed. Job ID: [id number] MTDD
[2020-05-03] MEDS: Enoxaparin Sodium 30 MG/0.3 ML SYRINGE SC SCH (22:37)
[2020-05-03] MEDS: Fluconazole In NaCl,Iso-Osm 400 MG in Premix Bag 1 BAG IVPB SCH (23:42)
[2020-05-03 23:52] LABS: Vancomycin, Random 13.1 ug/mL (See Comment)
[2020-05-04] MEDS: Dextrose 5 % And 0.9 % NaCl 1,000 ML IV SCH (00:15)
[2020-05-04] MEDS: Vancomycin HCl 750 MG in Sodium Chloride 0.9% 250 ML 250 ML IVPB SCH ×2 (01:00→13:47)
[2020-05-04] MEDS: Gabapentin 300 MG CAP PO SCH (08:35)
[2020-05-04] MEDS: Pantoprazole 40 MG VIAL IVP SCH (08:35)
[2020-05-04] MEDS: Multivit, Therapeutic 1 TAB PO SCH (08:35)
[2020-05-04] MEDS: Polyethylene Glycol 3350 17 GM Packet PER TUBE SCH (08:36)
[2020-05-04] MEDS: Calcium Carbonate 500 MG ChewTAB PER TUBE SCH ×2 (08:36→12:53)
[2020-05-04] MEDS: HumuLIN 70/30 (300 UNITS/3 ML VIAL) SC SCH (08:41)
[2020-05-04] MEDS: Albuterol 200 PUFF (6.7GM INHALER) INH SCH (09:08)
[2020-05-04] MEDS: MEROPENEM 1 GM/50 ML 1 GM in Premix Bag 1 BAG IVPB SCH (10:05)
[2020-05-04] MEDS ORDERED: Morphine 2 MG/ML VIAL SLOW IVP PRN (10:49)
--- NOTE | 2020-05-04 10:53 | RAD ---
EXAM: Single view of the chest HISTORY: Covid pneumonia COMPARISON: 05/03/2020 FINDINGS: Single view of the chest shows a normal sized cardiomediastinal silhouette. There is diffus e multifocal infiltrates in the lungs. A Dobbhoff tube has been pulled back with its tip in the distal esophagus. The bones are unremarkable IMPRESSION: 1. Multifocal pneumonia 2. Dobbhoff tube located in the distal esophagus
--- NOTE | 2020-05-04 11:25 | PDOC.HOSPP ---
- Subjective Encounter Date: 05/04/20 non-verbal - Objective Vital Signs & Weight: Vital Signs (12 hours) Temp Pulse Resp BP BP Pulse Ox 05/04/20 10:08 123 H 34 H 197/94 H 90 L 05/04/20 09:22 99 05/04/20 09:05 98.6 F 105 H 22 H 191/100 H 191/100 H 99 05/04/20 05:32 100 05/04/20 04:33 98.5 F 104 H 21 H 152/91 H 100 05/04/20 00:00 98.6 F 117 H 21 H 168/116 H 96 Weight Admit Weight 149 lb 7.574 oz Weight 165 lb 12.6 oz Most Recent Monitor Data Heart Rate from ECG 96 NIBP 99/60 NIBP BP-Mean 73 Respiration from ECG 23 SpO2 100 I&O: 05/03/20 05/04/20 05/05/20 06:59 06:59 06:59 Intake Total 600 2500 Output Total 3600 1850 Balance -3000 650 Result Diagrams: 05/03/20 05:32 05/03/20 05:32 Hospitalist ROS - Medication Medications: Active Medications Generic Name Dose Route Start Last Admin Trade Name Freq PRN Reason Stop Dose Admin Albuterol Sulfate 1 puff 04/07/20 19:00 05/04/20 09:08 Proventil Hfa INH Not Given [id number] KAYLYN Calcium Carbonate 500 mg 04/25/20 15:00 05/04/20 08:36 Tums PER TUBE 500 mg TID KAYLYN Administration Cyclobenzaprine HCl 10 mg 04/14/20 19:51 04/20/20 20:58 Flexeril PO 10 mg TIDPRN PRN Administration . Enoxaparin Sodium 30 mg 04/14/20 21:00 05/03/20 22:37 Lovenox SC 30 mg 2100 KAYLYN Administration Ferrous Sulfate 325 mg 04/30/20 17:00 05/04/20 08:40 Ferrous Sulfate PO 325 mg 1000,1700 KAYLYN Administration Gabapentin 300 mg 04/15/20 09:00 05/04/20 08:35 Neurontin PO 300 mg DAILY KAYLYN Administration Hydralazine HCl 10 mg 05/02/20 08:15 05/04/20 09:05 Apresoline SLOW IVP 10 mg Q4H PRN Administration SBP GREATER THAN 160 Fluconazole/Sodium Chloride 200 mls @ 100 mls/hr 04/29/20 23:59 05/03/20 23: 42 400 mg/ Device IVPB 200 mls 2359 KAYLYN Administration Meropenem 1 gm/ Device 50 mls @ 200 mls/hr 04/30/20 11:00 05/04/20 10:05 IVPB 50 mls 1100,2300 KAYLYN Administration Dextrose/Sodium Chloride 1,000 mls @ 50 mls/hr 05/02/20 08:15 05/04/20 00:15 D5 0.9% Ns IV 1,000 mls .Q20H KAYLYN Administration Vancomycin HCl 750 mg/ Sodium 250 mls @ 250 mls/hr 05/04/20 01:00 05/04/20 01 :00 Chloride IVPB 250 mls 0100,1300 KAYLYN Administration Insulin Human Isoph/Insulin Regular 15 units 04/18/20 21:00 05/04/20 08:41 Humulin 70/30 SC 15 unit BID KAYLYN Administration Insulin Human Lispro 0 units 04/07/20 15:52 04/30/20 12:24 Humalog SC 3 unit .MILD SLIDING SCALE PRN Administration Mild Correctional Scale Insulin Human Lispro 0 units 04/07/20 15:52 04/23/20 20:26 Humalog SC 5 unit .BEDTIME SLIDING SC PRN Administration Bedtime Correctional Scale Mometasone Furoate 200 mcg 04/19/20 18:30 05/03/20 17:53 Asmanex Hfa 100 Mcg INH Not Given BID-RT KAYLYN Morphine Sulfate 2 mg 05/04/20 10:49 05/04/20 10:58 Morphine SLOW IVP 2 mg Q4H PRN Administration Moderate to Severe Pain (6-10) Multivitamins 1 tab 04/15/20 09:00 05/04/20 08:35 Theragran PO 1 tab DAILY KAYLYN Administration Pantoprazole Sodium 40 mg 05/02/20 09:00 05/04/20 08:35 Protonix IVP 40 mg DAILY [facility]LYN Administration Polyethylene Glycol 17 gm 04/18/20 09:00 05/04/20 08:36 Miralax PER TUBE 17 gm DAILY KAYLYN Administration Sodium Chloride 10 ml 04/08/20 14:44 04/15/20 08:52 Flush - Normal Saline IVF 10 ml PRN PRN Administration Saline Flush - Exam General - other findings: Tachypneic and grunting. Heart: RRR Heart - other findings: Tachy Respiratory: rales (Diffuse, bilateral.) Respiratory - other findings: Grunting with expiration. Extremities: no cyanosis, no clubbing, no edema Skin: normal turgor Skin - other findings: Slightly diaphoretic. Hosp A/P (1) Acute respiratory failure with hypoxia Code(s): J96.01 - ACUTE RESPIRATORY FAILURE WITH HYPOXIA Status: Acute (2) COVID-19 Code(s): U07.1 - COVID-19 Status: Acute (3) Severe sepsis with septic shock Code(s): A41.9 - SEPSIS, UNSPECIFIED ORGANISM; R65.21 - SEVERE SEPSIS WITH SEPTIC SHOCK Status: Acute (4) Cerebral palsy Code(s): G80.9 - CEREBRAL PALSY, UNSPECIFIED Status: Chronic Qualifiers: Cerebral palsy type: unspecified type Qualified Code(s): G80.9 - Cerebral palsy, unspecified (5) HTN (hypertension) Code(s): I10 - ESSENTIAL (PRIMARY) HYPERTENSION Status: Chronic Qualifiers: Hypertension type: essential hypertension Qualified Code(s): I10 - Essential (primary) hypertension (6) ARF (acute renal failure) Status: Resolved (7) Leukocytosis Code(s): D72.829 - ELEVATED WHITE BLOOD CELL COUNT, UNSPECIFIED Status: Acute - Plan Has developed respiratory distress. Unclear etiology. Covid exac v. aspiration or PE. ABG pending. CXR maybe slightly worse infiltrates. On abx. Morphine for air hunger. Attempted to call family. NA. Discussed with Palliative Care. They will try to reach family and see if we can consider GIP hospice. A decision needs to be made regarding possible hospice and/or PEG placement. The patient's brother, Duran, is the decision maker. Dr. Figueroa was able to connect with him and again explain that the PEG has not been proven to improve QOL or longevity. Additionally, he reviewed the patient's KUB and found that the stomach and bowel are overlying the stomach. This would make endoscopic PEG placement impossible. He would require lap assisted placement. Duran is still unsure of the plan. Pulled his DHT partially out. That has been removed for now. Leukocytosis: On Vanc and Meropenem. No specific source of infection identified at this time. Recheck tomorrow. Would anticipate stopping the antibiotics soon. Anemia: Daily variability in numbers. Slightly lower today. Likely chronic disease at this point. Follow. ARF: GFR is now normal.
[2020-05-04 12:05] LABS: ALV-art Gradient 546.025 (0-20); Actual Bicarbonate (HCO3a) 24.8 mEq/L (22-28); Base Excess (BEa) 2.3 mEq/L (-2.0 to +3.0); CO2 Tension 30.7 mmHg (35.0-45.0); Calcium, Ionized (arterial) 1.11 mmol/L (1.12-1.30); Carboxyhemoglobin (COHb) 0.3 gm% (0.0-3.0); Hemoglobin (Hb) 9.1 g/dL (14.0-18.0); O2 Tension (PaO2), arterial 128.6 mmHg (80.0-100.0); Potassium - ABG Lab 2.79 mmol/L (3.70-5.30); Puncture Site LRA; pH, Arterial 7.53 (7.35-7.45)
[2020-05-04 17:30] VITALS: BP 144/96; TEMP 98.5
== END 2020-05-04 18:35 | disposition hospice, inpatient (51) | DRG 871 ==
LOC: ERS 09:11 → CCU 10:28 → IMCU/EMU 04-10 19:53 → T4-B 04-29 19:37
PROVIDERS: ADMIT Family Medicine; ATTEND Family Medicine
PROC: 8E0ZXY6 Isolation (ICD-10-PCS; principal; 2020-04-07)
PROC: 06HY33Z Insertion of Infusion Device into Lower Vein, Percutaneous Approach (ICD-10-PCS; 2020-04-07)
PROC: 06HY33Z Insertion of Infusion Device into Lower Vein, Percutaneous Approach (ICD-10-PCS; 2020-04-08)
PROC: 5A1D70Z Performance of Urinary Filtration, Intermittent, Less than 6 Hours Per Day (ICD-10-PCS; 2020-04-08)
PROC: 06HY33Z Insertion of Infusion Device into Lower Vein, Percutaneous Approach (ICD-10-PCS; 2020-04-13)
DX: A41.89 Other specified sepsis (principal); U07.1 COVID-19; R65.21 Severe sepsis with septic shock; J96.01 Acute respiratory failure with hypoxia; J12.89 Other viral pneumonia; G93.41 Metabolic encephalopathy; N18.6 End stage renal disease; N17.9 Acute kidney failure, unspecified; E87.2 Acidosis; E87.0 Hyperosmolality and hypernatremia; I12.0 Hypertensive chronic kidney disease with stage 5 chronic kidney disease or end stage renal disease; J98.11 Atelectasis; Z66 Do not resuscitate; Z51.5 Encounter for palliative care; M41.9 Scoliosis, unspecified; M54.30 Sciatica, unspecified side; G43.909 Migraine, unspecified, not intractable, without status migrainosus; E78.5 Hyperlipidemia, unspecified; K21.9 Gastro-esophageal reflux disease without esophagitis; E87.5 Hyperkalemia; E83.39 Other disorders of phosphorus metabolism; G80.9 Cerebral palsy, unspecified; D63.1 Anemia in chronic kidney disease; G89.4 Chronic pain syndrome; E78.00 Pure hypercholesterolemia, unspecified; E11.65 Type 2 diabetes mellitus with hyperglycemia; E11.22 Type 2 diabetes mellitus with diabetic chronic kidney disease; E11.42 Type 2 diabetes mellitus with diabetic polyneuropathy; E83.51 Hypocalcemia; E87.6 Hypokalemia; R13.12 Dysphagia, oropharyngeal phase; Z74.01 Bed confinement status; Z79.899 Other long term (current) drug therapy
CPT/HCPCS: 36415; 36416; 36556; 51702; 71045; 74018; 76770; 80048; 80053; 80202; 81003; 81015; 82040; 82274; 82533; 82553; 82728; 82805; 83605; 83735; 83880; 84100; 84484; 85007; 85014; 85018; 85025; 85027; 85610; 85730; 86140; 86704; 86706; 86803; 87040; 87086; 87149; 87340; 87635; 90935; 93005; 93010; 94760; 96361; 96365; 96366; 96367; 96374; 96375; 99292; C9113; G0257; J0360; J0456; J0692; J1450; J1642; J1644; J1650; J1815; J1940; J1956; J2185; J2270; J2543; J2920; J2997; J3370; J3490; J7030; J7050; J7070; J7512; S0028; U0003